=== PATIENT | female | born 1955 | race Caucasian/White ===

== ENCOUNTER 2019-11-02 09:32 | Outpatient (CLI) | payer MEDICARE, SELFPAY ==
[2019-11-02 11:11] LABS: Folic Acid 6.8 ng/mL (8.6->20); Vitamin B12 99 pg/mL (193-986)
[2019-11-05 22:19] LABS: Methylmalonic Acid 1170 nmol/L (87-318)
== END 2019-11-02 09:33 | disposition home or self-care (01) ==
LOC: CHSLAB 09:35
PROVIDERS: PCP Family Medicine; Visit Provider Family Medicine
DX: D75.89 Other specified diseases of blood and blood-forming organs (principal)
CPT/HCPCS: 36415; 82607; 82746; 83921

== ENCOUNTER 2020-01-26 13:03 | Inpatient (IN) | payer MEDICARE, MEDICAID, SELFPAY ==
--- NOTE | ~2020-01-26 | CT_ITS ---
EXAMINATION: CT abdomen pelvis w con DATE: 01/26/2020 15:17 INDICATION: Vomiting and abdominal pain. Epigastric pain. TECHNIQUE: Computed tomography (CT) of the abdomen and pelvis was performed with 100 cc Omnipaque 350 intravenous contrast. The dose-length product was 1396.18 mGy-cm. Automated exposure control and ite rative reconstruction technique were employed. COMPARISON: CT dated 09/14/2018 FINDINGS: Lung bases are unremarkable. No significant pleural or pericardial effusion. Heart size is enlarged. The liver, spleen, pancreas, adrenal glands and kidneys are unremarkable. There are gallstones. No hy dronephrosis. There is a umbilical hernia containing nonobstructed small bowel. No abnormal pelvic ma sses or fluid collections. Normal appendix. No focal bowel abnormalities. There is scoliosis. Moderat e lower thoracic spondylosis. IMPRESSION: 1. Cholelithiasis. 2: Umbilical hernia containing fat and nonobstructed small bowel. 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
--- NOTE | ~2020-01-26 | XR_ITS ---
XR chest 2V 01/26/2020 14:20 Indication: Dyspnea. Nausea. Procedure: PA and lateral views of the chest Comparison: Comparison to multiple prior studies sequentially, with oldest reviewed study dated 08/23. Findings: Cardiomegaly. No focal air space disease, pulmonary edema, pleural effusion or suspected pn eumothorax. Left basilar atelectasis. No acute osseous abnormality. Impression: 1: Left basilar atelectasis. 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 Impression: 1: Left basilar atelectasis.
--- NOTE | ~2020-01-26 | US_ITS ---
US right upper quadrant INDICATION: Epigastric pain and vomiting PROCEDURE: Realtime right upper abdominal ultrasound. COMPARISON: Ultrasound dated 10/11/2016 FINDINGS: The pancreas is normal without focal mass or pancreatic ductal dilation. Liver echotexture is normal without focal mass or intrahepatic biliary dilatation. There is normal directional flow i n the portal vein. The gallbladder is normal without stones, gallbladder wall thickening or pericholecystic fluid. Comm on bile duct measures 3.6 mm. No sonographic Mon's sign. IMPRESSION: 1: Normal limited abdominal ultrasound. 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
[2020-01-26 13:05] VITALS: BP 166/84; PULSE 70; RESP 28; TEMP 36.6; O2SAT 96
--- NOTE | 2020-01-26 13:28 | ECG_ITS ---
Measurements Intervals [place] Rate: 65 P: 71 ND: 164 QRS: 52 QRSD: 97 T: 60 QT: 433 QTc: 452 Interpretive Statements SINUS RHYTHM WITH SINUS ARRHYTHMIA ATRIAL AND VENTRICULAR PREMATURE COMPLEXES DELAYED PRECORDIAL R/S TRANSITION LOW QRS VOLTAGE IN PRECORDIAL LEADS BASELINE ARTIFACT- AVR, AVL, AVF, V5-V6 BORDERLINE ECG Electronically Signed On 01-26-2020 14:00:28 CDT by Gary Taveras D.O.
[2020-01-26 13:43] LABS: Add Urine Microscopic? YES; Appearance Urine Clear (Clear); Bilirubin Urine Negative (Negative); Blood Urine Negative (Negative); Color Urine Yellow (Yellow); Glucose Urine UA Trace (Negative); Ketones Urine Trace (Negative); Leukocyte Esterase Ur Negative LEU/UL (Negative); Nitrate Urine Negative (Negative); Protein Urine Negative (Negative); Urobilinogen Urine 0.2 mg/dL (0.2-1.0)
[2020-01-26] MEDS: SODIUM CHLORIDE 0.9% IV 1,000 ML 999 ML IV CONT (13:44)
[2020-01-26] MEDS: ONDANSETRON INJ 4 MG/2 ML VIAL IV PUSH ×3 (13:45→19:49)
[2020-01-26] MEDS: PANTOPRAZOLE SODIUM IV 40 MG VIAL IV PUSH ×2 (13:48→22:09)
--- NOTE | 2020-01-26 13:49 | ED.NAVMDI ---
HPI - Nausea/Vomiting/Diarrhea General Chief complaint: Nausea/Vomiting/Diarrhea Stated complaint: sick to stomach cough Time Seen by Provider: 01/26/20 13:05 Source: patient Mode of arrival: ambulatory Limitations: no limitations History of Present Illness HPI Narrative: 64-year-old woman comes in today complaining of severe nausea, a small amount emesis and shortness of breath which started this morning. She states she feels ill. She states she has a productive cough that has been going on for some time. Patient states that she has been feeling hot and cold and that her abdomen hurts but there is no specific area that hurts worse. She denies headache, diarrhea, melena, hematochezia, dysuria, frequent urination, hematuria, rash, sick contacts, travel, chest pain and rash. MD elicited complaint: nausea, vomiting and abdominal pain Onset (ago): hour(s) (4-6) Description of vomiting: watery Associated nausea: Yes Associated abdominal pain: Yes Location of pain: diffuse Radiation: does not radiate Pain consistency: constant Severity: moderate Quality: other ( like nausea ) Exacerbating factors: none Relieving factors: none Associated symptoms: cough, nausea/vomiting and shortness of breath Treatment prior to arrival: none Related Data Home Medications Medication Instructions Recorded Confirmed duloxetine 30 mg capsule,delayed 30 mg PO DAILY 07/27/19 01/26/20 release hydrochlorothiazide 25 mg tablet 25 mg PO DAILY 07/27/19 01/26/20 lisinopril 40 mg tablet 40 mg PO DAILY 07/27/19 01/26/20 mirtazapine 45 mg tablet 45 mg PO DAILY 07/27/19 01/26/20 montelukast 10 mg tablet 10 mg PO DAILY 07/27/19 01/26/20 omeprazole 40 mg capsule,delayed 40 mg PO DAILY 07/27/19 01/26/20 release ropinirole 1 mg tablet 1 mg PO BID 07/27/19 01/26/20 albuterol sulfate [ProAir HFA] 1 inh INHALATION QID PRN 01/26/20 01/26/20 apixaban [Eliquis] 5 mg PO BID 01/26/20 01/26/20 benztropine 1 mg PO BID 01/26/20 01/26/20 budesonide-formoterol [Symbicort] 2 puff INHALATION Q12H 01/26/20 01/26/20 calcium carbonate 600 mg PO BID 01/26/20 01/26/20 cariprazine [Vraylar] 1.5 mg PO DAILY 01/26/20 01/26/20 celecoxib [Celebrex] 200 mg PO DAILY 01/26/20 01/26/20 chlorhexidine gluconate 15 ml MUCOUS MEMBRANE BID 01/26/20 01/26/20 diltiazem HCl 240 mg PO DAILY 01/26/20 01/26/20 fluticasone propionate 1 inh INHALATION BID 01/26/20 01/26/20 glimepiride 2 mg PO DAILY 01/26/20 01/26/20 pravastatin 40 mg PO DAILY 01/26/20 01/26/20 triamcinolone acetonide 1 applic TOPICAL TID 01/26/20 01/26/20 Allergies Allergy/AdvReac Type Severity Reaction Status Date / Time codeine Allergy Unknown unknown Verified 07/27/19 11:18 Review of Systems Constitutional: Constitutional: Denies chills, Reports fatigue and Denies fever(s) Eyes: Eyes: Denies change in vision and Denies photophobia ENT: Denies dysphagia, Denies nasal congestion and Denies sore throat Cardiovascular: Cardiovascular: Denies chest pain and Denies radiating jaw, neck or arm pain Respiratory: Respiratory: Denies cough, Denies dyspnea and Denies wheezing Gastrointestinal: Gastrointestinal: Reports as per HPI, Reports abdominal pain, Denies diarrhea, Reports nausea and Reports vomiting Genitourinary: Genitourinary: Denies hematuria, Denies nocturia and Denies dysuria Musculoskeletal: Musculoskeletal: Denies arthralgias and Denies joint swelling Integumentary/Breasts: Skin/Breast: Denies pruritus, Denies erythema and Denies rash Neurologic: Denies vertigo, Denies dizziness, Denies syncope and Denies focal weakness Endocrine: Endocrine: Denies polydipsia and Denies polyuria Hematologic/Lymphatic: Hematologic/Lymphatic: Denies easy bleeding and Denies easy bruising Allergic/Immunologic: Allergic/Immunologic: Denies lip swelling and Denies wheezing PMFSH Past Medical History Medical History (Updated 01/26/20 @ 15:47 by Tc Feliciano MD) Arthritis Asthma COPD (chronic obstructive pulmonary disease) GE
[2020-01-26 13:50] LABS: Bacteria Urine 2+ /hpf; RBC Urine 0-2 /hpf (0-2); Squamous Epithelial Cell Urine Few /hpf (Few); WBC Urine 0-3 /hpf (0-3)
[2020-01-26 14:02] LABS: Influenza Control Valid (Valid)
[2020-01-26 14:13] LABS: Basophils Absolute Auto 0.05 K/mm3 (0.00-0.10); Basophils Percent Auto 0.4 % (0.0-1.0); Eosinophils Absolute Auto 0.04 K/mm3 (0.02-0.50); Eosinophils Percent Auto 0.3 % (1.0-6.0); Hematocrit 43.6 % (35.0-49.0); Hemoglobin 14.1 g/dL (12.0-15.0); Immature Granulocyte Absolute 0.07 K/mm3 (0.00-0.00); Immature Granulocyte Percent A 0.5 % (0.0-0.0); Lymphocytes Absolute Auto 0.78 K/mm3 (1.10-4.50); Lymphocytes Percent Auto 5.7 % (18.0-42.0); Mean Corpuscular HGB Conc 32.3 g/dL (32.0-36.0); Mean Corpuscular Hemoglobin 31.8 pg (27.0-31.0); Mean Corpuscular Volume 98.2 fL (78.0-102.0); Monocytes Absolute Auto 0.36 K/mm3 (0.10-0.90); Monocytes Percent Auto 2.6 % (2.0-11.0); Neutrophils Absolute Auto 12.5 K/mm3 (1.7-7.2); Neutrophils Percent Auto 90.5 % (50.0-70.0); Platelet Count Result 224 K/mm3 (150-420); Red Blood Count 4.44 M/mm3 (4.20-5.40); Red Cell Distribution Width 14.4 % (11.6-14.4); White Blood Count 13.8 K/mm3 (4.8-10.8)
[2020-01-26 14:30] VITALS: BP 165/79; PULSE 63; O2SAT 93
[2020-01-26 14:31] LABS: Alanine Aminotransferase 18 U/L (14-59); Albumin Level 3.6 g/dL (3.4-5.0); Alkaline Phosphatase 93 U/L (46-116); Anion Gap 12.9 mmol/L (7-16); Aspartate Amino Transferase 15 U/L (15-37); Bilirubin,Total 0.5 mg/dL (0.00-1.00); Blood Urea Nitrogen 14 mg/dL (7-18); Calcium 9.2 mg/dL (8.5-10.1); Carbon Dioxide 29 mmol/L (21-32); Chloride 104 mmol/L (98-108); Estimated Glomerular Filt Rate 59; Glucose 220 mg/dL (70-99); Lipase 68 U/L (73-393); Osmolality Calculated 301 mOsm/kg (285-295); Potassium 3.9 mmol/L (3.5-5.1); Sodium 142 mmol/L (136-145); Total Protein 7.2 g/dL (6.4-8.2)
[2020-01-26 14:33] LABS: Troponin I < 0.02 ng/mL (0.00-0.056)
[2020-01-26] MEDS: METOCLOPRAMIDE HCL INJ 10 MG/2 ML VIAL IV PUSH (15:04)
[2020-01-26 16:00] VITALS: BP 153/89; PULSE 62; RESP 20; TEMP 36.4; O2SAT 98
[2020-01-26 16:08] VITALS: PULSE 74; RESP 22; O2SAT 98
--- NOTE | 2020-01-26 16:15 | PC.NURSE ---
FRIEND GALE [phone] - CALL FOR RIDE IN THE AM
[2020-01-26 17:11] VITALS: BMI 43.6
[2020-01-26 17:22] LABS: Glucose Point of Care 191 (65-105)
[2020-01-26] MEDS: LACTATED RINGERS 1,000 ML 150 ML IV CONT (17:52)
[2020-01-26] MEDS: APIXABAN 2.5 MG TABLET 5 MG PO (18:01)
[2020-01-26] MEDS: CELECOXIB 100 MG CAPSULE 200 MG PO (18:01)
[2020-01-26] MEDS: CALCIUM CARBONATE (OSCAL) 500 MG TABLET PO (18:11)
[2020-01-26] MEDS: BUDESONIDE/FORMOTEROL (*SP) 160-4.5 MCG 6 GM INH 2 PUFF INHALATION (18:12)
[2020-01-26] MEDS: BENZTROPINE MESYLATE 0.5 MG TABLET 1 MG PO (18:35)
[2020-01-26] MEDS: TRIAMCINOLONE ACET 0.1% CREAM 15 GM TUBE 1 APPLIC TOPICAL (18:36)
--- NOTE | 2020-01-26 19:30 | PC.NURSE ---
Patient complaining of feeling nauseous and asked for nausea medicine. While nurse was @ sink washing her hands to leave room, nurse saw patient sticking 2 fingers down her throat. Asked patient why she was doing it and she said she needed to vomit. Nurse told patient to not be sticking fingers down her throat to help her vomit. Patient denies any other complaints. Call light in reach.
--- NOTE | 2020-01-26 19:55 | PC.NURSE ---
Meds unavailabe to be discussed by charge nurse with
--- NOTE | 2020-01-26 20:25 | PC.NURSE ---
Patient called to nurses station and said her brother will be calling to talk to her and patient asked that nurse just talk to him instead and gave permission for nurse to give brother information. Brother called couple minutes later. Updated brother on patient's condition.
[2020-01-26 21:06] LABS: Troponin I < 0.02 ng/mL (0.00-0.056)
[2020-01-26 23:07] LABS: Glucose Point of Care 194 (65-105)
[2020-01-27] VITALS: BP 167/82; PULSE 84; RESP 20; TEMP 36.7; O2SAT 94
[2020-01-27 00:46] LABS: Troponin I < 0.02 ng/mL (0.00-0.056)
[2020-01-27] MEDS: LACTATED RINGERS 1,000 ML 150 ML IV CONT ×4 (01:09→23:48)
[2020-01-27] MEDS: ONDANSETRON INJ 4 MG/2 ML VIAL IV PUSH ×3 (02:54→15:55)
[2020-01-27] MEDS: BUDESONIDE/FORMOTEROL (*SP) 160-4.5 MCG 6 GM INH 2 PUFF INHALATION ×2 (03:14→15:56)
[2020-01-27 05:37] LABS: Basophils Absolute Auto 0.06 K/mm3 (0.00-0.10); Basophils Percent Auto 0.4 % (0.0-1.0); Hematocrit 40.1 % (35.0-49.0); Hemoglobin 13.5 g/dL (12.0-15.0); Immature Granulocyte Absolute 0.25 K/mm3 (0.00-0.00); Immature Granulocyte Percent A 1.5 % (0.0-0.0); Lymphocytes Absolute Auto 1.04 K/mm3 (1.10-4.50); Lymphocytes Percent Auto 6.2 % (18.0-42.0); Mean Corpuscular HGB Conc 33.7 g/dL (32.0-36.0); Mean Corpuscular Hemoglobin 31.8 pg (27.0-31.0); Mean Corpuscular Volume 94.4 fL (78.0-102.0); Mean Platelet Volume 10.7 fl (9.2-11.8); Monocytes Percent Auto 4.2 % (2.0-11.0); Neutrophils Absolute Auto 14.8 K/mm3 (1.7-7.2); Neutrophils Percent Auto 87.7 % (50.0-70.0); Platelet Count Result 276 K/mm3 (150-420); Red Blood Count 4.25 M/mm3 (4.20-5.40); Red Cell Distribution Width 14.5 % (11.6-14.4); White Blood Count 16.8 K/mm3 (4.8-10.8)
[2020-01-27 06:07] LABS: Alanine Aminotransferase 19 U/L (14-59); Albumin Level 3.3 g/dL (3.4-5.0); Alkaline Phosphatase 83 U/L (46-116); Anion Gap 13.3 mmol/L (7-16); Aspartate Amino Transferase 15 U/L (15-37); Bilirubin,Total 0.6 mg/dL (0.00-1.00); Blood Urea Nitrogen 10 mg/dL (7-18); Calcium 8.4 mg/dL (8.5-10.1); Carbon Dioxide 29 mmol/L (21-32); Chloride 102 mmol/L (98-108); Estimated CRCL calculation 71 ml/min; Estimated Glomerular Filt Rate 60; Glucose 205 mg/dL (70-99); Osmolality Calculated 297 mOsm/kg (285-295); Potassium 3.3 mmol/L (3.5-5.1); Sodium 141 mmol/L (136-145); Total Protein 6.8 g/dL (6.4-8.2)
[2020-01-27 06:08] LABS: Troponin I < 0.02 ng/mL (0.00-0.056)
[2020-01-27 07:50] LABS: Glucose Point of Care 179 (65-105)
[2020-01-27 08:34] VITALS: BP 152/74; PULSE 108; RESP 20; TEMP 36.4; O2SAT 94
--- NOTE | 2020-01-27 10:08 | PC.NURSE ---
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 rocking back and forth on bed.
[2020-01-27] MEDS: PANTOPRAZOLE SODIUM IV 40 MG VIAL IV PUSH ×2 (11:06→20:22)
[2020-01-27] MEDS: HYDROMORPHONE HCL 2 MG/ML VIAL 0.5 MG IV PUSH ×2 (11:17→17:56)
[2020-01-27] MEDS: KCL 20 MEQ/SW 100 ML 100 ML 50 MEQ IVPB (11:24)
[2020-01-27 11:38] LABS: Glucose Point of Care 173 (65-105)
--- NOTE | 2020-01-27 12:58 | PM.IMHP ---
H&P: HPI History of Present Illness Chief complaint: sick to stomach cough Narrative: Yulia Gaston is a 64 year old female presented to the ED with complaints of nausea /vomiting and abdominal pain. She has a past medical history of arthritis, asthma, COPD, GERD, hypertension, insomnia, sleep apnea, type 2 diabetes, visual loss, weight gain. Patient noted for the last 2 days she has had nausea vomiting with abdominal pain. patient does have a history of having nausea vomiting with abdominal pain. records were obtained from patient's primary care physician Dr. Antunez and also the emergency department at [facility] in [place] that dates back to 2018. the cause of her abdominal pain was unable to be determined. According to patient she has been suffering from nausea vomiting and abdominal pain for the last 2 days. She is complaining of pain in her epigastric area and her lower abdominal area. She also has a productive cough which is chronic to her due to her COPD with sputum that is white and grayish in color. She noted that the pain is constant and nothing seems to aggravate it more. While patient was in the ED she was given Zofran Reglan and IV fluid. CT of the abdomen indicates Cholelithiasis.. vital signs are 152/74, 108, 20, 97.6 and 94% on 2 L nasal cannula. Patient white count was elevated to 16.8 she did have bacteria in her UA. ultrasound of the right upper quadrant is currently pending. her potassium was also low,she was given a K rider. she is being admitted for cholelithiasis, hypokalemia and nausea vomiting. Patient denies CP, palpitation, extremity numbness, lightheadness, dizziness, constipation, diarrhea, chills or fever. Review of Systems Constitutional: Constitutional: Reports fatigue and Reports poor appetite Cardiovascular: Cardiovascular: Denies irregular heart rhythm and Reports dyspnea (Chronic due to COPD) Respiratory: Respiratory: Reports cough ( productive greenish in color) Gastrointestinal: Gastrointestinal: Denies melena, Denies hematochezia, Denies change in stool character, Denies coffee ground emesis, Reports nausea and Reports vomiting Genitourinary: Genitourinary: Denies dysuria, Denies urinary incontinence, Denies urinary hesitancy and Denies urinary urgency Musculoskeletal: Musculoskeletal: Denies back pain and Denies neck pain Integumentary/Breasts: Skin/Breast: Denies system reviewed and no additional complaints, except as docu Neurologic: Denies confusion, Denies vertigo, Denies dizziness, Denies syncope, Denies frequent falls and Denies seizure-like activity Psychiatric: Psychiatric: Reports anxiety and Reports change in appetite Endocrine: Endocrine: Denies excessive sweating Hematologic/Lymphatic: Hematologic/Lymphatic: Denies no additional hematologic/lymphatic complaints Allergic/Immunologic: Allergic/Immunologic: Denies no additional allergic/immunologic complaints [facility] Past Medical History Medical History (Updated 01/27/20 @ 15:32 by KIMBERLI GrantP-C) Afib Arthritis Asthma COPD (chronic obstructive pulmonary disease) GERD (gastroesophageal reflux disease) HTN (hypertension) Insomnia Sleep apnea T2DM (type 2 diabetes mellitus) Vision loss Weight gain Surgical History Surgical History (Updated 01/26/20 @ 13:59 by Tc Feliciano MD) History of bilateral tubal ligation Social History Social History (Updated 07/27/19 @ 11:30 by Elisabeth Lucio) Smoking status: Former smoker Smoking end date: 09/22/10 Alcohol intake: former Substance use: former Substance use type: does not use Gender identity (if verbalized by the patient): Female Spiritual care concerns: No Agree to blood products: Yes Meds Home Medications and Allergies Home Medications Medication Instructions Recorded Confirmed Type duloxetine 30 mg capsule,delayed 30 mg PO DAILY 07/27/19 01/26/20 History release hydrochlorothiazide 25 mg tablet 2
[2020-01-27] MEDS: APIXABAN 2.5 MG TABLET 5 MG PO (15:55)
[2020-01-27] MEDS: CHLORHEXIDINE GLUCONATE 0.12% ORAL RINSE 473 ML BTL (*BKC) 15 ML SWISH/SPIT (15:57)
[2020-01-27 16:00] VITALS: BP 148/88; PULSE 96; RESP 18; TEMP 36.6; O2SAT 94
--- NOTE | 2020-01-27 16:52 | PC.NURSE ---
1530 awke and sitting on side of bed. rama any n/v. pain is almost gone. claims nap for last 2 hr has helped. requesting ice chips.
--- NOTE | 2020-01-27 16:53 | PC.NURSE ---
1650 no c/o n/v. surveillance dual rate officer aware of. pt had ice chips and oral meds. she is changing orders now.
[2020-01-27 17:04] LABS: Glucose Point of Care 138 (65-105)
[2020-01-27] MEDS: methylPREDNISolone SOD SUCC 125 MG VIAL 60 MG IV PUSH (18:50)
[2020-01-27 19:15] VITALS: BP 116/59; PULSE 64; RESP 18; TEMP 36.3; O2SAT 96
[2020-01-27] MEDS: BENZTROPINE MESYLATE 1 MG TABLET PO (20:22)
[2020-01-27] MEDS: PROCHLORPERAZINE EDISYLATE 10 MG/2 ML VIAL IV PUSH (21:14)
[2020-01-27 22:27] LABS: Glucose Point of Care 207 (65-105)
--- NOTE | 2020-01-27 22:28 | PC.NURSE ---
Patient sleeping quietly in bed, no signs of distress noted. Breathing unlabored. IV fluids cont. per order. Call light at side.
[2020-01-28] VITALS: BP 138/48; PULSE 88; RESP 16; TEMP 36.3; O2SAT 95
--- NOTE | 2020-01-28 03:22 | PC.NURSE ---
Sleeping except to void in BR hat, resp even. IV continues. Needed objects in reach.
[2020-01-28] MEDS: BUDESONIDE/FORMOTEROL (*SP) 160-4.5 MCG 6 GM INH 2 PUFF INHALATION (04:24)
[2020-01-28 05:37] LABS: Hematocrit 39.4 % (35.0-49.0); Hemoglobin 12.9 g/dL (12.0-15.0); Mean Corpuscular HGB Conc 32.7 g/dL (32.0-36.0); Mean Corpuscular Hemoglobin 31.2 pg (27.0-31.0); Mean Corpuscular Volume 95.4 fL (78.0-102.0); Mean Platelet Volume 10.8 fl (9.2-11.8); Platelet Count Result 264 K/mm3 (150-420); Red Blood Count 4.13 M/mm3 (4.20-5.40); Red Cell Distribution Width 14.3 % (11.6-14.4); White Blood Count 12.2 K/mm3 (4.8-10.8)
[2020-01-28 05:57] LABS: Lactic Acid 1.3 mmol/L (0.4-2.0)
[2020-01-28 06:00] VITALS: PULSE 90; RESP 16
[2020-01-28] MEDS: ALBUTEROL SULFATE NEB 2.5 MG/3 ML INH INHALATION (06:02)
[2020-01-28 06:08] LABS: Alanine Aminotransferase 24 U/L (14-59); Albumin Level 3.2 g/dL (3.4-5.0); Alkaline Phosphatase 73 U/L (46-116); Aspartate Amino Transferase 17 U/L (15-37); Bilirubin,Total 0.3 mg/dL (0.00-1.00); Blood Urea Nitrogen 15 mg/dL (7-18); Calcium 8.8 mg/dL (8.5-10.1); Carbon Dioxide 28 mmol/L (21-32); Chloride 107 mmol/L (98-108); Estimated CRCL calculation 70 ml/min; Estimated Glomerular Filt Rate 59; Glucose 195 mg/dL (70-99); Osmolality Calculated 301 mOsm/kg (285-295); Sodium 143 mmol/L (136-145)
[2020-01-28 06:12] VITALS: PULSE 68; RESP 18
[2020-01-28] MEDS: LACTATED RINGERS 1,000 ML 150 ML IV CONT (06:32)
[2020-01-28 06:42] LABS: CRP < 0.2 mg/dL (0.0-0.9)
--- NOTE | 2020-01-28 07:32 | PC.NURSE ---
Blood Glucose 164, no insulin given per protocol.
[2020-01-28 07:34] LABS: Glucose Point of Care 164 (65-105)
[2020-01-28 08:00] VITALS: BP 140/88; PULSE 90; RESP 20; TEMP 37.1; O2SAT 94
[2020-01-28] MEDS: PRAVASTATIN SODIUM 20 MG TABLET 40 MG PO (09:40)
[2020-01-28] MEDS: MIRTAZAPINE 15 MG TABLET 45 MG PO (09:40)
[2020-01-28] MEDS: MONTELUKAST SODIUM 10 MG TABLET PO (09:40)
[2020-01-28] MEDS: methylPREDNISolone SOD SUCC 125 MG VIAL 60 MG IV PUSH (09:40)
[2020-01-28] MEDS: APIXABAN 2.5 MG TABLET 5 MG PO (09:41)
[2020-01-28] MEDS: lisinopriL 20 MG TABLET 40 MG PO (09:41)
[2020-01-28] MEDS: hydroCHLOROthiazide 25 MG TABLET PO (09:42)
[2020-01-28] MEDS: CHLORHEXIDINE GLUCONATE 0.12% ORAL RINSE 473 ML BTL (*BKC) 15 ML SWISH/SPIT (09:42)
[2020-01-28] MEDS: DULOXETINE HCL 30 MG CAPSULE.DR PO (09:42)
[2020-01-28] MEDS: CALCIUM CARBONATE (OSCAL) 500 MG TABLET PO (09:42)
[2020-01-28] MEDS: PANTOPRAZOLE SODIUM IV 40 MG VIAL IV PUSH (09:46)
[2020-01-28] MEDS: CELECOXIB 100 MG CAPSULE 200 MG PO (09:47)
[2020-01-28] MEDS: BENZTROPINE MESYLATE 1 MG TABLET PO (09:50)
[2020-01-28] MEDS: TRIAMCINOLONE ACET 0.1% CREAM 15 GM TUBE 1 APPLIC TOPICAL ×2 (09:51→13:31)
[2020-01-28 11:41] LABS: Glucose Point of Care 213 (65-105)
[2020-01-28] MEDS: ONDANSETRON INJ 4 MG/2 ML VIAL IV PUSH (12:14)
--- NOTE | 2020-01-28 12:48 | PM.DS ---
DS: Diagnosis Admitting Diagnosis Admitting Diagnosis: Epigastric pain Discharge Diagnosis (1) Abdominal pain: Qualifiers: Abdominal location: epigastric Qualified Code(s): R10.13 - Epigastric pain Code(s): R10.9 - Unspecified abdominal pain Status: Acute Assessment and Plan: CT indicates Cholelithiasis. ultrasound unremarkable patient able to tolerate meals on discharge WBC trending down on discharge 12.2 patient with discharge with Compazine (2) Vomiting: Qualifiers: Nausea presence: with nausea Vomiting Intractability: unspecified Vomiting type: unspecified Qualified Code(s): R11.2 - Nausea with vomiting, unspecified Code(s): R11.10 - Vomiting, unspecified Status: Acute Assessment and Plan: patient able to tolerate meals continue anti emesis medication ultrasound of the right upper quadrant unremarkable HIDA scan scheduled for 1 week patient instructed to eat low or no fat diet (3) T2DM (type 2 diabetes mellitus): Code(s): E11.9 - Type 2 diabetes mellitus without complications Status: Acute Assessment and Plan: blood sugars less than 300 continue home medication follow-up with PCP (4) GERD (gastroesophageal reflux disease): Code(s): K21.9 - Gastro-esophageal reflux disease without esophagitis Status: Acute Assessment and Plan: continue omeprazole (5) COPD (chronic obstructive pulmonary disease): Code(s): J44.9 - Chronic obstructive pulmonary disease, unspecified Status: Acute Assessment and Plan: wheezing has improved with the use of steroids continue supplementary oxygen continue inhalers discharge home with Solu-Medrol pack (6) DVT prophylaxis: Code(s): Z29.9 - Encounter for prophylactic measures, unspecified Status: Acute Assessment and Plan: continue Eliquis (7) Afib: Code(s): I48.91 - Unspecified atrial fibrillation Status: Acute Assessment and Plan: controlled is followed by Dr. Rodriguez dye worker patient is on Eliquis continue Cardizem EKG indicates SINUS RHYTHM WITH SINUS ARRHYTHMIA ATRIAL AND VENTRICULAR PREMATURE COMPLEXES DELAYED PRECORDIAL R/S TRANSITION LOW QRS VOLTAGE IN PRECORDIAL LEADS patient does not complain of any chest pain palpitation DS: Summary Hospital Course Hospital Course: H&P from 01/26 Narrative: Yulia Gaston is a 64 year old female presented to the ED with complaints of nausea /vomiting and abdominal pain. She has a past medical history of arthritis, asthma, COPD, GERD, hypertension, insomnia, sleep apnea, type 2 diabetes, visual loss, weight gain. Patient noted for the last 2 days she has had nausea vomiting with abdominal pain. patient does have a history of having nausea vomiting with abdominal pain. records were obtained from patient's primary care physician Dr. Antunez and also the emergency department at [facility] in [place] that dates back to 2018. the cause of her abdominal pain was unable to be determined. According to patient she has been suffering from nausea vomiting and abdominal pain for the last 2 days. She is complaining of pain in her epigastric area and her lower abdominal area. She also has a productive cough which is chronic to her due to her COPD with sputum that is white and grayish in color. She noted that the pain is constant and nothing seems to aggravate it more. While patient was in the ED she was given Zofran Reglan and IV fluid. CT of the abdomen indicates Cholelithiasis.. vital signs are 152/74, 108, 20, 97.6 and 94% on 2 L nasal cannula. Patient white count was elevated to 16.8 she did have bacteria in her UA. ultrasound of the right upper quadrant is currently pending. her potassium was also low,she was given a K rider. she is being admitted for cholelithiasis, hypokalemia and nausea vomiting.
--- NOTE | 2020-01-28 12:48 | P.DS_ITS ---
DS: Diagnosis Admitting Diagnosis Admitting Diagnosis: Epigastric pain Discharge Diagnosis (1) Abdominal pain: Qualifiers: Abdominal location: epigastric Qualified Code(s): R10.13 - Epigastric pain Code(s): R10.9 - Unspecified abdominal pain Status: Acute Assessment and Plan: * CT indicates Cholelithiasis. * ultrasound unremarkable * patient able to tolerate meals on discharge * WBC trending down on discharge 12.2 * patient with discharge with Compazine * (2) Vomiting: Qualifiers: Nausea presence: with nausea Vomiting Intractability: unspecified Vomiting type: unspecified Qualified Code(s): R11.2 - Nausea with vomiting, unspecified Code(s): R11.10 - Vomiting, unspecified Status: Acute Assessment and Plan: * patient able to tolerate meals * continue anti emesis medication * ultrasound of the right upper quadrant unremarkable * HIDA scan scheduled for 1 week * patient instructed to eat low or no fat diet (3) T2DM (type 2 diabetes mellitus): Code(s): E11.9 - Type 2 diabetes mellitus without complications Status: Acute Assessment and Plan: * blood sugars less than 300 * continue home medication * follow-up with PCP (4) GERD (gastroesophageal reflux disease): Code(s): K21.9 - Gastro-esophageal reflux disease without esophagitis Status: Acute Assessment and Plan: * continue omeprazole (5) COPD (chronic obstructive pulmonary disease): Code(s): J44.9 - Chronic obstructive pulmonary disease, unspecified Status: Acute Assessment and Plan: * wheezing has improved with the use of steroids * continue supplementary oxygen * continue inhalers * discharge home with Solu-Medrol pack (6) DVT prophylaxis: Code(s): Z29.9 - Encounter for prophylactic measures, unspecified Status: Acute Assessment and Plan: * continue Eliquis (7) Afib: Code(s): I48.91 - Unspecified atrial fibrillation Status: Acute Assessment and Plan: * controlled * is followed by Dr. 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 She has a past medical history of arthritis, asthma, COPD, GERD, hypertension, insomnia, sleep apnea, type 2 diabetes, visual loss, weight gain. Patient noted for the last 2 days she has had nausea vomiting with abdominal pain. patient does have a history of having nausea vomiting with abdominal pain. records were obtained from patient's primary care physician Dr. Antunez and also the emergency department at [facility] in [place] that dates back to 2018. the cause of her abdominal pain was unable to be determined. According to patient she has been suffering from nausea vomiting and abdominal pain for the last 2 days. She is complaining of pain in her epigastric area and her lower abdominal area. She also has a productive cough which is chronic to her due to her COPD with sputum that is white and grayish in color. She noted that the pain is constant and nothing seems to aggravate it more. While patient was in the ED she was given Zofran Reglan and
--- NOTE | 2020-01-28 15:16 | PC.NURSE ---
DISHCARGE INSTRUCTIONS GIVEN VERBALLY AND WRITTEN INCLUDING MEDS, TESTING AND FOLLOW UPS. PT VOICES HER UNDERSTANDING. HAS NO QUESTIONS OR CONCERNS.
== END 2020-01-28 15:53 | disposition home or self-care (01) | DRG 446 ==
LOC: CHSED 15:47 → CHS2ND 15:56
PROVIDERS: Nurse Practitioner; Admitting Provider Emergency Medicine; Emergency Provider Emergency Medicine; PCP Family Medicine; Visit Provider Emergency Medicine
DX: K80.20 Calculus of gallbladder without cholecystitis without obstruction (principal); R10.9 Unspecified abdominal pain; R11.2 Nausea with vomiting, unspecified; E87.6 Hypokalemia; E11.9 Type 2 diabetes mellitus without complications; K21.9 Gastro-esophageal reflux disease without esophagitis; J44.9 Chronic obstructive pulmonary disease, unspecified; I48.91 Unspecified atrial fibrillation; I10 Essential (primary) hypertension; G47.00 Insomnia, unspecified; G47.30 Sleep apnea, unspecified; R63.5 Abnormal weight gain; H54.7 Unspecified visual loss
CPT/HCPCS: 36415; 71046; 74177; 76705; 80053; 81001; 83605; 83690; 84484; 85025; 85027; 86140; 87040; 87804; 93005; 94640; 96361; 96374; 96375; 96376; 99285; A4248; A9270; C9113; G0378; J0780; J1170; J1815; J2405; J2765; J2930; J3480; J7030; J7120; Q9965

== ENCOUNTER 2020-02-04 07:49 | Outpatient (CLI) | payer MEDICARE, MEDICAID, SELFPAY ==
--- NOTE | ~2020-02-04 | NM_ITS ---
EXAMINATION: NM hepatobiliary w pharm DATE: 02/04/2020 12:00 INDICATION: Abdominal pain. Nausea. COMPARISON: CT abdomen and pelvis 01/26/2020, ultrasound 01/27/2020 TECHNIQUE: 5.2 mCi Tc-99m mebrofenin (Choletec) was administered intravenously. Scintigraphic images of the abdomen were obtained for one hour. Then, 2.45 mcg sincalide (Kinevac) IV was administered, a nd imaging was continued for 30 minutes. FINDINGS: There is normal clearance of radiotracer from the blood pool. There is homogeneous tracer u ptake by the liver. Activity progresses to the bowel and gallbladder. Gallbladder ejection fraction (GBEF) was 31%. Note that most patients with gallbladder dysfunction have GBEF < 35%, which overlaps with the broad normal range of 10-90%. IMPRESSION: 1. Gallbladder ejection fraction in the lower range of normal. Note that this value overlaps with th e range of values that may be seen with gallbladder dysfunction and/or chronic cholecystitis if there is appropriate clinical correlation. 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 IMPRESSION: 1. Gallbladder ejection fraction in the lower range of normal. Note that this value overlaps with the range of values that may be seen with gallbladder dysfu nction and/or chronic cholecystitis if there is appropriate clinical correlatio nJean Carlos
== END 2020-02-04 07:50 | disposition home or self-care (01) ==
LOC: CHSIMG 07:52
PROVIDERS: PCP Family Medicine; Visit Provider Nurse Practitioner
DX: R10.9 Unspecified abdominal pain (principal)
CPT/HCPCS: 78227; A9537; J2805

== ENCOUNTER 2020-02-22 12:15 | Outpatient (CLI) | payer MEDICARE, SELFPAY ==
[2020-02-22 12:37] LABS: Creatinine Urine 161.01 mg/dL (40-278); MALB Creatinine Ratio 5.1 mg/g (0-30); Microalbumin Urine Random 8.3 mg/L
[2020-02-22 12:57] LABS: Hemoglobin A1C 6.9 % (<5.7)
[2020-02-22 13:29] LABS: Alanine Aminotransferase 19 U/L (14-59); Albumin Level 3.5 g/dL (3.4-5.0); Alkaline Phosphatase 89 U/L (46-116); Anion Gap 12.6 mmol/L (7-16); Aspartate Amino Transferase 14 U/L (15-37); Bilirubin,Total 0.4 mg/dL (0.00-1.00); Blood Urea Nitrogen 10 mg/dL (7-18); Calcium 9.1 mg/dL (8.5-10.1); Carbon Dioxide 32 mmol/L (21-32); Chloride 102 mmol/L (98-108); Estimated Glomerular Filt Rate 58; Glucose 144 mg/dL (70-99); Magnesium 2.2 mg/dL (1.8-2.4); Osmolality Calculated 298 mOsm/kg (285-295); Potassium 3.6 mmol/L (3.5-5.1); Sodium 143 mmol/L (136-145); Thyroid Stimulating Hormone 2.15 uIU/mL (0.36-3.74); Total Protein 6.5 g/dL (6.4-8.2)
== END 2020-02-22 12:16 | disposition home or self-care (01) ==
LOC: CHSLAB 12:17
PROVIDERS: PCP Family Medicine; Visit Provider Family Medicine
DX: E11.9 Type 2 diabetes mellitus without complications (principal); I10 Essential (primary) hypertension
CPT/HCPCS: 36415; 80053; 82043; 83036; 83735; 84443

== ENCOUNTER 2020-03-10 15:04 | Observation (INO) | payer MEDICARE, MEDICAID, SELFPAY ==
[2020-03-10] VITALS (13 sets, daily range): BP systolic 119–164; BP diastolic 61–90; PULSE 62–153; RESP 16–20; TEMP 36.1–36.7; O2SAT 90–96; BMI 42.4
--- NOTE | ~2020-03-10 | XR_ITS ---
EXAMINATION: XR chest 2V DATE: 03/10/2020 16:38 INDICATION: Shortness of breath and cough TECHNIQUE: PA and lateral views of the chest are obtained. COMPARISON: 01/26/2020 FINDINGS: There are persistent left basilar airspace opacities. There is no pleural effusion or pneum othorax. Cardiomegaly is noted. There is moderate thoracic spondylosis. IMPRESSION: 1. Persistent left basilar airspace opacities, likely atelectasis. 2. Cardiomegaly. 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
--- NOTE | ~2020-03-10 | CT_ITS ---
EXAMINATION: CT abdomen pelvis w con DATE: 03/10/2020 17:25 INDICATION: Right upper Quad and abdominal pain. Leukocytosis. TECHNIQUE: Computed tomography (CT) of the abdomen and pelvis was performed . with 100 mL Omnipaque-3 50 intravenous contrast. Automated exposure control and iterative reconstruction technique were emplo yed. The dose-length product was 1411.54 mGy-cm. COMPARISON: FINDINGS: Mild atelectasis at the anterior lingula and right middle lobe. Mild cardiomegaly with likely left ve ntricular hypertrophy. No pericardial or pleural effusion. Diffuse hepatic steatosis with more focal fat at the ligamentum teres. Tiny gallstone at the neck of the normal-appearing gallbladder with no w all thickening or pericholecystic and contour change to suggest acute cholecystitis. Spleen, pancreas , bilateral adrenal glands and right kidney are normal. 1 cm left renal cyst. Small umbilical hernia containing fat and the anterior margin of the short segment of nonobstructed small bowel. Bowels incl uding the appendix are normal. Bladder, anteverted uterus and bilateral ovaries are normal. Likely bi lateral tubal ligation rings along the bilateral broad ligaments. No free intraperitoneal gas or flui d. No pathologically enlarged abdominal or pelvic lymphadenopathy. Mild lumbar levoscoliosis with com pensatory dextrocurvature of the thoracic spine. Severe lower thoracic and mild lumbar spondylosis. IMPRESSION: 1. Cholelithiasis without findings to suggest acute cholecystitis. 2. Small umbilical hernia containing fat and nonobstructed small bowel. 3. Cardiomegaly with left ventricular hypertrophy. 4. Diffuse hepatic steatosis. 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
--- NOTE | 2020-03-10 15:26 | ECG_ITS ---
Measurements Intervals [place] Rate: 68 P: 72 [place]: 158 QRS: 34 QRSD: 98 T: 54 QT: 433 QTc: 463 Interpretive Statements SINUS RHYTHM BORDERLINE ST ABNORMALITY- ANTEROLATERAL LEADS BASELINE WANDER- I, II, III BORDERLINE ECG Electronically Signed On 03-10-2020 17:24:37 CDT by Gary Taveras D.O.
--- NOTE | 2020-03-10 15:41 | ED.SOB ---
HPI - SOB/Dyspnea General Chief Complaint: Shortness of Breath/Dyspnea Stated Complaint: gallbladder pain, trouble breathing Time Seen by Provider: 03/10/20 15:20 Source: patient Mode of arrival: ambulatory Limitations: no limitations History of Present Illness HPI Narrative: 64-year-old woman with a history of COPD and abdominal pain comes in today complaining of shortness of breath which has gotten gradually worse over the last few weeks and is associated with a cough productive of white and negrete sputum. She states she has felt hot and cold but has had no night sweats, fever, chest pain or sick contacts. She is no longer a smoker. She states that she has some right upper quadrant and right flank pain that started in the last day or so and she has not eaten anything yesterday or today. She had small amount of emesis after taking some antacids earlier today. She denies diarrhea, black stools, blood in her stool, dysuria, hematuria, frequency or urgency. Per medical record and the patient, she has been having abdominal pain intermittently and about once a year for the last 12 years. MD elicited complaint: shortness of breath and cough Pertinent past history: COPD Onset (ago): week(s) (2-3) Timing: constant Severity: moderate Exacerbating factors: exertion Relieving factors: rest Known history of: COPD and other (Atrial fibrillation) Associated symptoms: wheezing and sputum production Treatment prior to arrival: bronchodilator (last night) Related Data Home oxygen amount: none Home Medications Medication Instructions Recorded Confirmed duloxetine 30 mg capsule,delayed 30 mg PO DAILY 07/27/19 03/10/20 release hydrochlorothiazide 25 mg tablet 25 mg PO DAILY 07/27/19 03/10/20 lisinopril 40 mg tablet 40 mg PO DAILY 07/27/19 03/10/20 montelukast 10 mg tablet 10 mg PO DAILY 07/27/19 03/10/20 Eliquis 5 mg PO BID 01/26/20 03/10/20 Vraylar 1.5 mg PO DAILY 01/26/20 03/10/20 albuterol sulfate [ProAir HFA] 1 inh INHALATION QID PRN 01/26/20 03/10/20 benztropine 1 mg PO BID 01/26/20 03/10/20 budesonide-formoterol [Symbicort] 2 puff INHALATION Q12H 01/26/20 03/10/20 celecoxib [Celebrex] 200 mg PO DAILY 01/26/20 03/10/20 diltiazem HCl 240 mg PO DAILY 01/26/20 03/10/20 fluticasone propionate 1 inh INHALATION BID 01/26/20 03/10/20 glimepiride 2 mg PO DAILY 01/26/20 03/10/20 folic acid 1 mg PO DAILY 03/10/20 03/10/20 vitamin B complex [B 1 tablet PO BID 03/10/20 03/10/20 Complex-Vitamin B12] Allergies Allergy/AdvReac Type Severity Reaction Status Date / Time codeine AdvReac Unknown sick to Verified 02/18/20 09:26 stomach Review of Systems Constitutional: Constitutional: Denies chills, Reports fatigue, Denies fever(s) and Denies weakness Eyes: Eyes: Denies change in vision and Denies photophobia ENT: Denies dysphagia, Denies nasal congestion and Denies sore throat Cardiovascular: Cardiovascular: Denies chest pain and Denies radiating jaw, neck or arm pain Respiratory: Respiratory: Denies cough and Denies dyspnea Gastrointestinal: Gastrointestinal: Reports abdominal pain, Denies constipation, Denies diarrhea, Reports nausea and Reports vomiting Genitourinary: Genitourinary: Denies hematuria, Denies nocturia, Denies dysuria and Reports flank pain Musculoskeletal: Musculoskeletal: Denies back pain, Denies arthralgias and Denies joint swelling Integumentary/Breasts: Skin/Breast: Denies pruritus, Denies erythema and Denies rash Neurologic: Denies vertigo, Denies dizziness, Denies syncope, Denies headache(s), Denies focal weakness, Denies numbness and Denies weakness Endocrine: Endocrine: Denies polydipsia and Denies polyuria Hematologic/Lymphatic: Hematologic/Lymphatic: Denies easy bleeding and Denies easy bruising Allergic/Immunologic: Allergic/Immunologic: Denies lip swelling and Denies wheezing PMFSH Past Medical History Medical History Afib Arthritis Asthma
[2020-03-10 15:48] LABS: Basophils Absolute Auto 0.06 K/mm3 (0.00-0.10); Basophils Percent Auto 0.3 % (0.0-1.0); Hematocrit 44.1 % (35.0-49.0); Hemoglobin 14.9 g/dL (12.0-15.0); Immature Granulocyte Absolute 0.21 K/mm3 (0.00-0.00); Immature Granulocyte Percent A 1.2 % (0.0-0.0); Lymphocytes Absolute Auto 1.48 K/mm3 (1.10-4.50); Lymphocytes Percent Auto 8.6 % (18.0-42.0); Mean Corpuscular HGB Conc 33.8 g/dL (32.0-36.0); Mean Corpuscular Hemoglobin 29.9 pg (27.0-31.0); Mean Corpuscular Volume 88.6 fL (78.0-102.0); Mean Platelet Volume 10.3 fl (9.2-11.8); Monocytes Absolute Auto 1.16 K/mm3 (0.10-0.90); Monocytes Percent Auto 6.7 % (2.0-11.0); Neutrophils Absolute Auto 14.4 K/mm3 (1.7-7.2); Neutrophils Percent Auto 83.2 % (50.0-70.0); Platelet Count Result 304 K/mm3 (150-420); Red Blood Count 4.98 M/mm3 (4.20-5.40); Red Cell Distribution Width 14.3 % (11.6-14.4); White Blood Count 17.3 K/mm3 (4.8-10.8)
[2020-03-10] MEDS: ALBUTEROL SULFATE (*SP) INHALER 8 PUFF INHALATION (15:49)
[2020-03-10 15:54] LABS: Add Urine Microscopic? YES; Appearance Urine Clear (Clear); Bilirubin Urine 2+ (Negative); Blood Urine Negative (Negative); Color Urine Yellow (Yellow); Glucose Urine UA Negative (Negative); Ketones Urine 1+ (Negative); Leukocyte Esterase Ur Trace LEU/UL (Negative); Nitrate Urine Negative (Negative); Protein Urine 2+ (Negative); Specific Grav Ur 1.025 (1.010-1.020); pH Urine 6.5 (5.0-8.0)
[2020-03-10 16:00] LABS: Bacteria Urine 1+ /hpf; RBC Urine 0-2 /hpf (0-2); Squamous Epithelial Cell Urine Moderate /hpf (Few); WBC Urine 0-3 /hpf (0-3)
[2020-03-10 16:01] LABS: Partial Thromboplastin Time 27.6 SEC (22.3-31.6); Prothrombin Time 10.4 Seconds (9.64-11.0)
[2020-03-10 16:06] LABS: Influenza Control Valid (Valid)
[2020-03-10 16:09] LABS: Alanine Aminotransferase 17 U/L (14-59); Albumin Level 3.5 g/dL (3.4-5.0); Alkaline Phosphatase 84 U/L (46-116); Anion Gap 12.8 mmol/L (7-16); Aspartate Amino Transferase 10 U/L (15-37); Bilirubin,Total 0.7 mg/dL (0.00-1.00); Blood Urea Nitrogen 12 mg/dL (7-18); Calcium 9.1 mg/dL (8.5-10.1); Carbon Dioxide 27 mmol/L (21-32); Chloride 101 mmol/L (98-108); Estimated Glomerular Filt Rate 55; Glucose 214 mg/dL (70-99); Lactic Acid Reflex 2.3 mmol/L (0.4-2.0); Lipase 45 U/L (73-393); Osmolality Calculated 291 mOsm/kg (285-295); Potassium 2.8 mmol/L (3.5-5.1); Sodium 138 mmol/L (136-145); Total Protein 7.2 g/dL (6.4-8.2)
[2020-03-10 16:10] LABS: Troponin I < 0.02 ng/mL (0.00-0.056)
[2020-03-10] MEDS: HYDROMORPHONE HCL 2 MG/ML VIAL 0.5 MG IV PUSH (16:10)
[2020-03-10] MEDS: SODIUM CHLORIDE 0.9% IV 1,000 ML 999 ML IV CONT (16:10)
[2020-03-10] MEDS: ONDANSETRON INJ 4 MG/2 ML VIAL IV PUSH (16:11)
[2020-03-10] MEDS: KCL 20 MEQ/SW 100 ML 100 ML 50 MEQ IVPB ×2 (16:55→19:26)
--- NOTE | 2020-03-10 17:36 | PC.NURSE ---
PT IS SEEN WITH HEART RATE INCREASING FROM 90'S TO 150 BUT NOT SUSTAINED. ERP ASKS PT TO TAKE HER DILTIAZEM 240 HOME MEDICATION TO REGULATE HER HEAR RATE SHE HAS NOT TAKEN THAT IN TWO DAYS
[2020-03-10 18:41] LABS: Reflex Lactic Acid Yes or No Add Lactic
[2020-03-10 19:13] LABS: Lactic Acid 1.9 mmol/L (0.4-2.0)
[2020-03-10 21:21] LABS: Troponin I < 0.02 ng/mL (0.00-0.056)
[2020-03-11] VITALS (20 sets, daily range): BP systolic 136–184; BP diastolic 66–106; PULSE 59–143; RESP 16–62; TEMP 36.3–37; O2SAT 91–96
[2020-03-11 01:45] LABS: Anion Gap 8.1 mmol/L (7-16); Blood Urea Nitrogen 12 mg/dL (7-18); Calcium 8.3 mg/dL (8.5-10.1); Carbon Dioxide 32 mmol/L (21-32); Chloride 104 mmol/L (98-108); Estimated CRCL calculation 76 ml/min; Estimated Glomerular Filt Rate > 60; Glucose 119 mg/dL (70-99); Osmolality Calculated 292 mOsm/kg (285-295); Potassium 3.1 mmol/L (3.5-5.1); Sodium 141 mmol/L (136-145); Troponin I < 0.02 ng/mL (0.00-0.056)
--- NOTE | 2020-03-11 02:18 | PC.NURSE ---
Notified Dr. Feliciano about pt's potassium value; No new orders at this time.
[2020-03-11] MEDS: KCL 20 MEQ/SW 100 ML 100 ML 50 MEQ IVPB (02:49)
[2020-03-11] MEDS: BUDESONIDE/FORMOTEROL (*SP) 160-4.5 MCG 6 GM INH 2 PUFF INHALATION ×2 (05:02→17:10)
[2020-03-11 05:51] LABS: Basophils Absolute Auto 0.07 K/mm3 (0.00-0.10); Basophils Percent Auto 0.5 % (0.0-1.0); Eosinophils Absolute Auto 0.08 K/mm3 (0.02-0.50); Eosinophils Percent Auto 0.6 % (1.0-6.0); Hematocrit 39.9 % (35.0-49.0); Hemoglobin 13.1 g/dL (12.0-15.0); Immature Granulocyte Absolute 0.07 K/mm3 (0.00-0.00); Immature Granulocyte Percent A 0.5 % (0.0-0.0); Lymphocytes Absolute Auto 2.33 K/mm3 (1.10-4.50); Lymphocytes Percent Auto 16.8 % (18.0-42.0); Mean Corpuscular HGB Conc 32.8 g/dL (32.0-36.0); Mean Corpuscular Hemoglobin 30.1 pg (27.0-31.0); Mean Corpuscular Volume 91.7 fL (78.0-102.0); Mean Platelet Volume 10.2 fl (9.2-11.8); Monocytes Absolute Auto 1.13 K/mm3 (0.10-0.90); Monocytes Percent Auto 8.2 % (2.0-11.0); Neutrophils Absolute Auto 10.2 K/mm3 (1.7-7.2); Neutrophils Percent Auto 73.4 % (50.0-70.0); Platelet Count Result 252 K/mm3 (150-420); Red Blood Count 4.35 M/mm3 (4.20-5.40); Red Cell Distribution Width 14.6 % (11.6-14.4); White Blood Count 13.9 K/mm3 (4.8-10.8)
[2020-03-11 06:13] LABS: Alanine Aminotransferase 15 U/L (14-59); Albumin Level 3.1 g/dL (3.4-5.0); Alkaline Phosphatase 69 U/L (46-116); Anion Gap 11.5 mmol/L (7-16); Aspartate Amino Transferase 10 U/L (15-37); Bilirubin,Total 0.5 mg/dL (0.00-1.00); Blood Urea Nitrogen 13 mg/dL (7-18); Calcium 8.2 mg/dL (8.5-10.1); Carbon Dioxide 29 mmol/L (21-32); Chloride 104 mmol/L (98-108); Estimated CRCL calculation 71 ml/min; Estimated Glomerular Filt Rate > 60; Glucose 132 mg/dL (70-99); Magnesium 2.1 mg/dL (1.8-2.4); Osmolality Calculated 294 mOsm/kg (285-295); Potassium 3.5 mmol/L (3.5-5.1); Sodium 141 mmol/L (136-145); Total Protein 6.1 g/dL (6.4-8.2)
[2020-03-11 06:15] LABS: Lactic Acid Reflex 0.6 mmol/L (0.4-2.0)
[2020-03-11 06:18] LABS: Troponin I < 0.02 ng/mL (0.00-0.056)
--- NOTE | 2020-03-11 07:26 | PC.NURSE ---
Patient reporting nausea. LINOTYPIST Saranya notified. Patient having runs of Tachy. HR jummping up to 140's for short periods of time and then dropping back down to high 90's. LINOTYPIST notified of HR as well. Patient has hob elevated. call light at side.
[2020-03-11] MEDS: hydroCHLOROthiazide 25 MG TABLET PO (07:43)
[2020-03-11] MEDS: ONDANSETRON INJ 4 MG/2 ML VIAL IV PUSH ×2 (07:43→14:49)
[2020-03-11] MEDS: lisinopriL 20 MG TABLET 40 MG PO (07:43)
--- NOTE | 2020-03-11 09:24 | PC.NURSE ---
0915 . Patient has been having some runs sinus tach. Saranya CLERICAL PRODUCTION WORKER notified and aware. Patient has home o2 prn. Patient complaining of shortness of breath with these runs. O2 sat 91% room air. O2 2.5 l/min n.c. applied 0920 o2 sats up in mid to upper 90's. Less shortness of breath reported. HR 60-70's. Patient reports took meds awhile ago and was given something for nausea. Feels like a Popsicle now. Popsicle given.
[2020-03-11] MEDS: ACETAMINOPHEN 500 MG TABLET 1000 MG PO (09:41)
[2020-03-11] MEDS: CELECOXIB 100 MG CAPSULE 200 MG PO (09:44)
[2020-03-11] MEDS: DULOXETINE HCL 30 MG CAPSULE.DR PO (09:44)
[2020-03-11] MEDS: BENZTROPINE MESYLATE 1 MG TABLET PO ×2 (09:44→17:10)
[2020-03-11] MEDS: GLIMEPIRIDE 2 MG TABLET PO (09:44)
[2020-03-11] MEDS: APIXABAN 2.5 MG TABLET 5 MG PO ×2 (09:44→17:10)
[2020-03-11] MEDS: IMIPENEM/CILASTATIN SODIUM 250 MG in DEXTROSE 5% 100 ML 300 MG IVPB (10:24)
[2020-03-11] MEDS: PANTOPRAZOLE SODIUM IV 40 MG VIAL IV PUSH ×2 (11:18→20:55)
[2020-03-11] MEDS: METOCLOPRAMIDE HCL INJ 10 MG/2 ML VIAL 5 MG IV PUSH ×3 (11:18→23:32)
[2020-03-11] MEDS: levoFLOXacin 250 MG/D5W 50 ML 250 MG/50 ML BAG 50 MG IVPB (11:18)
[2020-03-11] MEDS: LORAZEPAM INJ 2 MG/ML VIAL 0.5 MG IV PUSH (12:48)
--- NOTE | 2020-03-11 12:55 | PC.NURSE ---
Patient states she is still not feeling great. NAIL STICKER spoke with patient. Ativan given per order for anxiety. Patient has call light at side.
--- NOTE | 2020-03-11 13:15 | PM.IMHP ---
H&P: HPI History of Present Illness Chief complaint: gallbladder pain, trouble breathing <LUIS Grant-C - Last Filed: 03/11/20 14:04> Narrative: Yulia Gaston is a 64 year old female that presented to the ED with complaints of nausea, epigastric pain and weakness. Patient has a past medical history AFib, arthritis, asthma, COPD, depression, GERD, hypertension, insomnia, sleep apnea, diabetes, vision loss, and weight gain Patient was recently discharged from this hospital on 01/27 due cholelithiasis. according to patient she has had periodical nausea since her last discharge. patient noted that she was scheduled to get a procedure to determine whether she had excessive acid reflux but due to the COVID-19 it was cancelled. her productive cough has also increased . patient also noted due to her nausea appetite has decreased. patient also complained of palpitations.today she still complains pain epigastric pain. patient also use continuous oxygen.while in the ED patient's CT of the abdomen unchanged from previous visit. patient was also tachycardia due to her inability to take a Cardizem, patient lactic acid was 0.6 Mag 2.1 troponin negative x3 blood culture pending COVID-19 collected negative. patient has been admitted for tachycardia, COPD and acute hypokalemia with abdominal pain. . Patient denies , CP,, extremity numbness, lightheadness, dizziness, constipation, diarrhea, chills or fever. patient will possibly discharge tomorrow once her nausea and pain has been controlled . <LUIS Grant-Lenora - Last Filed: 03/11/20 14:04> Review of Systems Review of Systems: Narrative: CONSTITUTIONAL : patient complains of weakness and fatigue, HEENT: Eyes: No diplopia or blurred vision. ENT: No earache, sore throat or runny nose. CARDIOVASCULAR: No pressure, squeezing, strangling, tightness, heaviness or aching about the chest, neck, axilla or epigastrium. RESPIRATORY: patient has productive cough that has worsened she also has worsening shortness of breath, GASTROINTESTINAL: patient with nausea no vomiting with epigastric pain GENITOURINARY: No dysuria, frequency or urgency. MUSCULOSKELETAL: patient has chronic back pain SKIN: No change in skin, hair or nails. NEUROLOGIC: No paresthesias, fasciculations, seizures or weakness. PSYCHIATRIC: No disorder of thought or mood. ENDOCRINE: No heat or cold intolerance, polyuria or polydipsia. HEMATOLOGICAL: No easy bruising or bleeding. <SATHYA Grant - Last Filed: 03/11/20 14:04> [facility] Past Medical History Medical History: Medical History Afib Arthritis Asthma COPD (chronic obstructive pulmonary disease) Depressed Emphysema/COPD GERD (gastroesophageal reflux disease) HTN (hypertension) Insomnia Sleep apnea T2DM (type 2 diabetes mellitus) Vision loss Weight gain <SATHYA Grant - Last Filed: 03/11/20 14:04> Surgical History Surgical History: Surgical History Bunion removed H/O removal of cyst History of bilateral tubal ligation <SATHYA Grant - Last Filed: 03/11/20 14:04> Social History Social History: Social History Smoking status: Former smoker Tobacco type: cigarettes Second hand tobacco smoke exposure: Yes Smoking end date: 09/22/10 Alcohol intake: never Substance use: never Substance use type: does not use Gender identity (if verbalized by the patient): Female Sexual Orientation (if Verbalized by the Patient): Straight or Heterosexual Spiritual care concerns: No Agree to blood products: Yes <SATHYA Grant - Last Filed: 03/11/20 14:04> Meds Home Medications and Allergies Home medications: Home Medications Medication Instructions Recorded Confirmed Type duloxetine 30 mg capsule,delayed 30
[2020-03-11 13:20] LABS: SARS-CoV-2 RNA PCR Negative
[2020-03-11] MEDS: SODIUM CHLORIDE 0.9% IV 1,000 ML 50 ML IV CONT (13:56)
[2020-03-11] MEDS: predniSONE 20 MG TABLET 60 MG PO (14:49)
[2020-03-11] MEDS: FLUTICASONE PROP 44 MCG (*SP) 10.6 GM 2 PUFF INHALATION (17:10)
[2020-03-11] MEDS: CARIPRAZINE 1.5 MG 1 EACH BY MOUTH (20:54)
--- NOTE | 2020-03-11 23:45 | PC.NURSE ---
Patient just back from bathroom when nurse entered room. Respirations even and unlabored with O2 on @ 2 lpm/nc. Patient says she'd been getting SOB when she goes to bathroom earlier but not the last couple times. Denies nausea/pain/complaints/needs @ this time. No distress noted. Call light in reach.
[2020-03-12] VITALS: BP 119/71; PULSE 76; RESP 20; TEMP 36.7; O2SAT 97
[2020-03-12 04:00] VITALS: BP 132/66; PULSE 60; RESP 20; TEMP 36.7; O2SAT 93
[2020-03-12] MEDS: BUDESONIDE/FORMOTEROL (*SP) 160-4.5 MCG 6 GM INH 2 PUFF INHALATION (05:43)
[2020-03-12] MEDS: METOCLOPRAMIDE HCL INJ 10 MG/2 ML VIAL 5 MG IV PUSH (05:43)
[2020-03-12] MEDS: FLUTICASONE PROP 44 MCG (*SP) 10.6 GM 2 PUFF INHALATION (05:44)
[2020-03-12 06:53] LABS: Hematocrit 39.2 % (35.0-49.0); Hemoglobin 13.3 g/dL (12.0-15.0); Mean Corpuscular HGB Conc 33.9 g/dL (32.0-36.0); Mean Corpuscular Hemoglobin 30.4 pg (27.0-31.0); Mean Corpuscular Volume 89.5 fL (78.0-102.0); Mean Platelet Volume 9.9 fl (9.2-11.8); Platelet Count Result 254 K/mm3 (150-420); Red Blood Count 4.38 M/mm3 (4.20-5.40); Red Cell Distribution Width 14.1 % (11.6-14.4); White Blood Count 13.9 K/mm3 (4.8-10.8)
[2020-03-12 07:12] LABS: Alanine Aminotransferase 15 U/L (14-59); Albumin Level 3.2 g/dL (3.4-5.0); Alkaline Phosphatase 70 U/L (46-116); Aspartate Amino Transferase 12 U/L (15-37); Bilirubin,Total 0.5 mg/dL (0.00-1.00); Blood Urea Nitrogen 12 mg/dL (7-18); Calcium 8.5 mg/dL (8.5-10.1); Carbon Dioxide 32 mmol/L (21-32); Chloride 102 mmol/L (98-108); Estimated CRCL calculation 74 ml/min; Estimated Glomerular Filt Rate > 60; Glucose 135 mg/dL (70-99); Osmolality Calculated 291 mOsm/kg (285-295); Sodium 140 mmol/L (136-145); Total Protein 6.3 g/dL (6.4-8.2)
[2020-03-12 07:20] VITALS: BP 135/78; PULSE 79; RESP 18; TEMP 36.6; O2SAT 94
[2020-03-12] MEDS: BENZTROPINE MESYLATE 1 MG TABLET PO (09:32)
[2020-03-12] MEDS: CELECOXIB 100 MG CAPSULE 200 MG PO (09:32)
[2020-03-12] MEDS: hydroCHLOROthiazide 25 MG TABLET PO (09:32)
[2020-03-12] MEDS: VITAMIN B COMPLEX CAPSULE 1 CAP PO (09:32)
[2020-03-12] MEDS: METOCLOPRAMIDE HCL 10 MG TABLET PO (09:33)
[2020-03-12] MEDS: DULOXETINE HCL 30 MG CAPSULE.DR PO (09:33)
[2020-03-12] MEDS: predniSONE 40 MG, predniSONE 10 MG 50 MG PO (09:33)
[2020-03-12] MEDS: lisinopriL 20 MG TABLET 40 MG PO (09:36)
[2020-03-12] MEDS: MONTELUKAST SODIUM 10 MG TABLET PO (09:37)
[2020-03-12] MEDS: APIXABAN 2.5 MG TABLET 5 MG PO (09:37)
[2020-03-12] MEDS: GLIMEPIRIDE 2 MG TABLET PO (09:37)
[2020-03-12] MEDS: FOLIC ACID 1 MG TABLET PO (09:37)
--- NOTE | 2020-03-12 10:45 | PC.NURSE ---
All discharge instructions and education reviewed with patient. Patient states understanding. IV site to right hand removed, tip intact. Dressing applied to site. Telemetry removed, pt. able to dress self in clothes from home with no assist. All belonging gathered together to be sent home with patient. All home medications returned to patient. Waiting for patients friend to arrive to transport her home.
--- NOTE | 2020-03-12 11:00 | PC.NURSE ---
Patients friend here to transport patient home. This nurse accompanied patient to front door via wheelchair. Patient transfered from wheelchair to car with no assist. Patient left via private vehicle with friend. All belongings and discharge instructions sent home with patient. Patient denies any questions at discharge.
--- NOTE | 2020-03-12 12:59 | PM.IMHP ---
H&P: HPI History of Present Illness Chief complaint: gallbladder pain, trouble breathing Narrative: Yulia Gaston is a 64 year old female THAT WAS ADMITTED ON 03/10/2020 . SHE presented to the ED with complaints of nausea, epigastric pain and weakness. Patient has a past medical history AFib, arthritis, asthma, COPD, depression, GERD, hypertension, insomnia, sleep apnea, diabetes, vision loss, and weight gain Patient was recently discharged from this hospital on 01/27 due cholelithiasis. according to patient she has had periodical nausea since her last discharge. patient noted that she was scheduled to get a procedure to determine whether she had excessive acid reflux but due to the COVID-19 it was cancelled. her productive cough haD also increased . patient also noted due to her nausea HER appetite has decreased. patient also complained of palpitations. TODAY PATIENT WILL DISCHARGE HOME. SHE WILL CONTINUE REGLAN, PANTOPRAZOLE AND PAIN MEDICATION WHICH IMPROVED HER CONDITION. SHE NO LONGER HAS ABDOMINAL PAIN AND IS ABLE TO TOLERATE ALL HER MEALS. SHE WILL DISCHARGE TO FOLLOW-UP WITH HER PRIMARYCARE PHYSICIAN. HER POTASSIUM WAS BELOW NORMAL LIMITS ON DISCHARGE SHE WAS PRESCRIBED 1 WEEK SUPPLY OF POTASSIUM WITH A REPEAT LABS. HER RESULTS WILL GO TO HER PRIMARY CARE PHYSICIAN SHE WAS ALSO INSTRUCTED TO FOLLOW-UP WITH HER CARE PHYSICIAN IN 1-2 WEEKS. PATIENT ABLE TO TOLERATE ALL MEALS , SLEPT WELL AND AMBULATE AT BASELINE. PATIENT DENIES SOB, CP, PALPITATION, EXTREMITY NUMBNESS, LIGHTHEADNESS, DIZZINESS, CONSTIPATION, DIARRHEA, CHILLS OR FEVER. PATIENT AGREE THAT THEY ARE READY FOR DISCHARGE AND DISCHARGE PLAN. Review of Systems Review of Systems: Narrative: CONSTITUTIONAL :NO WEIGHT LOSS, FEVER, CHILLS, WEAKNESS OR FATIGUE.: HEENT: EYES: NO DIPLOPIA OR BLURRED VISION. ENT: NO EARACHE, SORE THROAT OR RUNNY NOSE. CARDIOVASCULAR: NO PRESSURE, SQUEEZING, STRANGLING, TIGHTNESS, HEAVINESS OR ACHING ABOUT THE CHEST, NECK, AXILLA OR EPIGASTRIUM. RESPIRATORY: NO COUGH, SHORTNESS OF BREATH, PND OR ORTHOPNEA. GASTROINTESTINAL: NO NAUSEA, VOMITING OR DIARRHEA. GENITOURINARY: NO DYSURIA, FREQUENCY OR URGENCY. MUSCULOSKELETAL: NO MUSCLE, BACK PAIN, JOINT PAIN OR STIFFNESS. SKIN: NO CHANGE IN SKIN, HAIR OR NAILS. NEUROLOGIC: NO PARESTHESIAS, FASCICULATIONS, SEIZURES OR WEAKNESS. PSYCHIATRIC: NO DISORDER OF THOUGHT OR MOOD. ENDOCRINE: NO HEAT OR COLD INTOLERANCE, POLYURIA OR POLYDIPSIA. HEMATOLOGICAL: NO EASY BRUISING OR BLEEDING. [facility] Past Medical History Medical History Afib Arthritis Asthma COPD (chronic obstructive pulmonary disease) Depressed Emphysema/COPD GERD (gastroesophageal reflux disease) HTN (hypertension) Insomnia Sleep apnea T2DM (type 2 diabetes mellitus) Vision loss Weight gain Surgical History Surgical History Bunion removed H/O removal of cyst History of bilateral tubal ligation Social History Social History Smoking status: Former smoker Tobacco type: cigarettes Second hand tobacco smoke exposure: Yes Smoking end date: 09/22/10 Alcohol intake: never Substance use: never Substance use type: does not use Gender identity (if verbalized by the patient): Female Sexual Orientation (if Verbalized by the Patient): Straight or Heterosexual Spiritual care concerns: No Agree to blood products: Yes Meds Home Medications and Allergies Home Medications Medication Instructions Recorded Confirmed Type duloxetine 30 mg capsule,delayed 30 mg PO DAILY 07/27/19 03/10/20 History release hydrochlorothiazide 25 mg tablet 25 mg PO DAILY 07/27/19 03/10/20 History lisinopril 40 mg tablet 40 mg PO DAILY 07/27/19 03/10/20 History montelukast 10 mg tablet 10 mg PO DAILY 07/27/19 03/10/20 History Eliquis 5 mg PO BID 01/26/20 03/10/20 H
== END 2020-03-12 11:00 | disposition home or self-care (01) ==
LOC: CHSED 15:07 → CHS2ND 17:50
PROVIDERS: Nurse Practitioner; Admitting Provider Emergency Medicine; Emergency Provider Emergency Medicine; PCP Family Medicine; Visit Provider Emergency Medicine
DX: R00.0 Tachycardia, unspecified (principal); E87.6 Hypokalemia; R00.2 Palpitations; K80.20 Calculus of gallbladder without cholecystitis without obstruction; J44.9 Chronic obstructive pulmonary disease, unspecified; I48.20 Chronic atrial fibrillation, unspecified; K21.9 Gastro-esophageal reflux disease without esophagitis; E11.9 Type 2 diabetes mellitus without complications; M19.90 Unspecified osteoarthritis, unspecified site; K76.0 Fatty (change of) liver, not elsewhere classified; H54.7 Unspecified visual loss; G47.30 Sleep apnea, unspecified; F32.9 Major depressive disorder, single episode, unspecified; G47.00 Insomnia, unspecified; Z20.828 Contact with and (suspected) exposure to other viral communicable diseases; Z87.891 Personal history of nicotine dependence; E66.01 Morbid (severe) obesity due to excess calories; Z79.02 Long term (current) use of antithrombotics/antiplatelets
CPT/HCPCS: 36415; 71046; 74177; 80048; 80053; 81001; 83605; 83690; 83735; 84484; 85025; 85027; 85610; 85730; 87040; 87635; 87804; 93005; 94640; 96361; 96365; 96366; 96367; 96375; 96376; 99285; A9270; C9113; C9803; G0378; J0743; J1170; J1956; J2060; J2405; J2765; J3480; J7030; J7512; Q9965; U0003

== ENCOUNTER 2020-03-20 09:54 | Outpatient (CLI) | payer MEDICARE, SELFPAY ==
[2020-03-20 10:45] LABS: Potassium 3.9 mmol/L (3.5-5.1)
== END 2020-03-20 09:55 | disposition home or self-care (01) ==
LOC: CHSLAB 09:55
PROVIDERS: PCP Family Medicine; Visit Provider Nurse Practitioner
DX: E87.6 Hypokalemia (principal)
CPT/HCPCS: 36415; 84132

== ENCOUNTER 2020-04-15 10:09 | Outpatient (CLI) | payer MEDICARE, MEDICAID, SELFPAY ==
--- NOTE | ~2020-04-15 | XR_ITS ---
XR knee RT 3V DATE: 04/15/2020 10:54 INDICATION: Generalized pain. Unable to bear weight. TECHNIQUE: 3 views COMPARISON: 08/09/2018 MRI right knee 06/19/2018 right knee FINDINGS: There is tri-compartment osteoarthritis, greatest at the medial compartment. There is promi nence of the tibial spines. No fracture or dislocation or joint effusion. No periosteal reaction or bone destruction. No radio paque intra-articular loose body or chondrocalcinosis. IMPRESSION: Tri-compartment osteoarthritis Reviewed, dictated and finalized at location A.
--- NOTE | ~2020-04-15 | XR_ITS ---
XR tibia fibula RT 2V DATE: 04/15/2020 11:02 INDICATION: Generalized pain. Unable to bear weight. TECHNIQUE: AP and lateral views COMPARISON: None FINDINGS: Tri-compartment osteoarthritis of the knee. No fracture or dislocation, periosteal reactio n or bone destruction. IMPRESSION: Tri-compartment osteoarthritis of knee Reviewed, dictated and finalized at location A.
--- NOTE | ~2020-04-15 | XR_ITS ---
XR tibia fibula LT 2V DATE: 04/15/2020 11:03 INDICATION: Generalized left knee pain. Unable to bear weight. TECHNIQUE: AP and lateral views COMPARISON: None FINDINGS: There is tri-compartment osteoarthritis. No fracture or dislocation, periosteal reaction o r bone destruction. IMPRESSION: Tri-compartment osteoarthritis of knee Plantar calcaneal enthesopathy Reviewed, dictated and finalized at location A.
--- NOTE | ~2020-04-15 | XR_ITS ---
XR knee LT 3V DATE: 04/15/2020 10:53 INDICATION: Generalized pain. Unable to bear weight. TECHNIQUE: 4 views COMPARISON: None FINDINGS: There is tri-compartment osteoarthritis, most prominent at the medial compartment. No fracture or dislocation . There is suprapatellar joint effusion. No radiopaque intra-articular l oose body or chondrocalcinosis. IMPRESSION: Tri-compartment osteoarthritis Suprapatellar joint effusion Reviewed, dictated and finalized at location A.
== END 2020-04-15 10:10 | disposition home or self-care (01) ==
LOC: CHSIMG 10:12
PROVIDERS: PCP Family Medicine; Visit Provider Family Medicine
DX: M25.569 Pain in unspecified knee (principal); M79.669 Pain in unspecified lower leg
CPT/HCPCS: 73562; 73590

== ENCOUNTER 2020-05-09 12:09 | Outpatient (CLI) | payer MEDICARE, MEDICAID, SELFPAY ==
--- NOTE | ~2020-05-09 | XR_ITS ---
EXAMINATION: XR chest 2V DATE: 05/09/2020 14:53 INDICATION: Syncope and leukocytosis TECHNIQUE: PA and lateral views of the chest are obtained. COMPARISON: 03/10/2020 FINDINGS: The lungs are free of acute opacities. There is no pleural effusion or pneumothorax. There is stable cardiomegaly. There is moderate thoracic spondylosis. IMPRESSION: 1. No acute cardiopulmonary abnormality. 2. Stable cardiomegaly. 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
[2020-05-09 12:23] LABS: Hematocrit 46.6 % (35.0-49.0); Mean Corpuscular HGB Conc 34.3 g/dL (32.0-36.0); Mean Corpuscular Hemoglobin 30.7 pg (27.0-31.0); Mean Corpuscular Volume 89.3 fL (78.0-102.0); Platelet Count Result 414 K/mm3 (150-420); Red Blood Count 5.22 M/mm3 (4.20-5.40); Red Cell Distribution Width 14.1 % (11.6-14.4)
--- NOTE | 2020-05-09 12:30 | ECG_ITS ---
Measurements Intervals [place] Rate: 89 P: 93 DC: 156 QRS: 40 QRSD: 92 T: 45 QT: 382 QTc: 466 Interpretive Statements SINUS RHYTHM ATRIAL PREMATURE COMPLEX BORDERLINE ECG Electronically Signed On 05-09-2020 13:15:53 CDT by Gary Taveras D.O.
[2020-05-09 12:56] LABS: White Blood Count 21.4 K/mm3 (4.8-10.8)
[2020-05-09 13:10] LABS: Band Neutrophils Percent 0 % (0-6); Basophils Absolute Manual 0.21 K/mm3 (0-0.1); Basophils Percent Manual 1 % (0-1); Eosinophils Absolute Manual 0.21 K/mm3 (0.02-0.5); Eosinophils Percent Manual 1 % (1-6); Lymphocytes Absolute Manual 3.63 K/mm3 (1.1-4.5); Lymphocytes Percent Manual 17 % (18-44); Monocytes Absolute Manual 1.71 K/mm3 (0.1-0.90); Monocytes Percent Manual 8 % (3-9); Neutrophils Absolute Manual 15.62 K/mm3 (1.7-7.2); Neutrophils Percent Manual 73 % (46-73); Total Cells Counted 100
[2020-05-09 13:11] LABS: Platelet Estimate Adequate (Adequate)
[2020-05-09 13:21] LABS: Alanine Aminotransferase 16 U/L (14-59); Albumin Level 3.9 g/dL (3.4-5.0); Alkaline Phosphatase 93 U/L (46-116); Anion Gap 10 mmol/L (8-16); Aspartate Amino Transferase 11 U/L (15-37); Bilirubin,Total 0.8 mg/dL (0.00-1.00); Blood Urea Nitrogen 15 mg/dL (7-18); Calcium 9.4 mg/dL (8.5-10.1); Carbon Dioxide 30 mmol/L (21-32); Chloride 98 mmol/L (98-108); Creatine Kinase 48 U/L (26-192); Estimated Glomerular Filt Rate 42; Glucose 165 mg/dL (70-99); Osmolality Calculated 290 mOsm/kg (285-295); Potassium 3.1 mmol/L (3.5-5.1); Sodium 138 mmol/L (136-145); Total Protein 7.4 g/dL (6.4-8.2); Troponin I < 0.02 ng/mL (0.00-0.056)
[2020-05-09 17:06] LABS: Add Urine Microscopic? YES; Appearance Urine Sl Cloudy (Clear); Bilirubin Urine 2+ (Negative); Blood Urine Negative (Negative); Color Urine Yellow (Yellow); Glucose Urine UA Negative (Negative); Ketones Urine 1+ (Negative); Leukocyte Esterase Ur Negative (Negative); Nitrate Urine Positive (Negative); Protein Urine 2+ (Negative); Specific Grav Ur 1.025 (1.010-1.020); pH Urine 5.5 (5.0-8.0)
[2020-05-09 17:19] LABS: RBC Urine 0-2 /hpf (0-2)
[2020-05-09 17:20] LABS: Bacteria Urine 2+ /hpf; Squamous Epithelial Cell Urine Moderate /hpf (Few)
== END 2020-05-09 12:10 | disposition home or self-care (01) ==
PROVIDERS: PCP Family Medicine; Visit Provider Family Medicine
DX: R11.2 Nausea with vomiting, unspecified (principal); I48.91 Unspecified atrial fibrillation; D72.829 Elevated white blood cell count, unspecified; N39.0 Urinary tract infection, site not specified
CPT/HCPCS: 36415; 71046; 80053; 81001; 82550; 82553; 84484; 85025; 87086; 87088; 93005

== ENCOUNTER 2020-06-05 08:46 | Outpatient (CLI) | payer MEDICARE, SELFPAY ==
[2020-06-05 09:00] LABS: Basophils Absolute Auto 0.07 K/mm3 (0.00-0.10); Basophils Percent Auto 0.6 % (0.0-1.0); Eosinophils Absolute Auto 0.57 K/mm3 (0.02-0.50); Eosinophils Percent Auto 4.8 % (1.0-6.0); Hematocrit 44.7 % (35.0-49.0); Hemoglobin 14.5 g/dL (12.0-15.0); Immature Granulocyte Absolute 0.06 K/mm3 (0.00-0.00); Immature Granulocyte Percent A 0.5 % (0.0-0.0); Lymphocytes Percent Auto 17.8 % (18.0-42.0); Mean Corpuscular HGB Conc 32.4 g/dL (32.0-36.0); Mean Corpuscular Hemoglobin 30.3 pg (27.0-31.0); Mean Corpuscular Volume 93.5 fL (78.0-102.0); Mean Platelet Volume 9.8 fl (9.2-11.8); Monocytes Absolute Auto 0.76 K/mm3 (0.10-0.90); Monocytes Percent Auto 6.5 % (2.0-11.0); Neutrophils Absolute Auto 8.2 K/mm3 (1.7-7.2); Neutrophils Percent Auto 69.8 % (50.0-70.0); Platelet Count Result 304 K/mm3 (150-420); Red Blood Count 4.78 M/mm3 (4.20-5.40); Red Cell Distribution Width 13.8 % (11.6-14.4); White Blood Count 11.8 K/mm3 (4.8-10.8)
[2020-06-05 09:17] LABS: Hemoglobin A1C 6.2 % (<5.7)
[2020-06-05 09:32] LABS: Alanine Aminotransferase 17 U/L (14-59); Albumin Level 3.6 g/dL (3.4-5.0); Alkaline Phosphatase 95 U/L (46-116); Anion Gap 7 mmol/L (8-16); Aspartate Amino Transferase < 10 U/L (15-37); Bilirubin,Total 0.4 mg/dL (0.00-1.00); Blood Urea Nitrogen 14 mg/dL (7-18); Calcium 8.8 mg/dL (8.5-10.1); Carbon Dioxide 30 mmol/L (21-32); Chloride 105 mmol/L (98-108); Cholesterol 147 mg/dL (0-200); Creatine Kinase 26 U/L (26-192); Estimated Glomerular Filt Rate > 60; Glucose 174 mg/dL (70-99); HDL Direct 22 mg/dL (40-60); LDL Cholesterol Calculated 72 mg/dL (<130); Osmolality Calculated 298 mOsm/kg (285-295); Potassium 3.6 mmol/L (3.5-5.1); Sodium 142 mmol/L (136-145); Total Protein 6.6 g/dL (6.4-8.2); Triglycerides 263 mg/dL (0-150)
== END 2020-06-05 08:47 | disposition home or self-care (01) ==
LOC: CHSLAB 08:49
PROVIDERS: PCP Family Medicine; Visit Provider Family Medicine
DX: E78.2 Mixed hyperlipidemia (principal); E11.9 Type 2 diabetes mellitus without complications
CPT/HCPCS: 36415; 80053; 80061; 82550; 83036; 85025

== ENCOUNTER 2020-06-12 09:38 | Outpatient (CLI) | payer MEDICARE, MEDICAID, SELFPAY ==
--- NOTE | ~2020-06-12 | XR_ITS ---
[[id number] ] INDICATION: Right rib pain TECHNIQUE: Frontal projection of the upper right ribs, frontal projection of the lower right ribs, ob lique projection of all the right ribs, frontal inspiratory chest x-ray for interpretation. FINDINGS: There are no displaced rib fractures identified. There are no soft tissue abnormality see n. The lungs are clear. IMPRESSION: 1:No displaced rib fractures. 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
== END 2020-06-12 09:39 | disposition home or self-care (01) ==
LOC: CHSIMG 09:41
PROVIDERS: PCP Family Medicine; Visit Provider Family Medicine
DX: R19.07 Generalized intra-abdominal and pelvic swelling, mass and lump (principal); R07.89 Other chest pain
CPT/HCPCS: 71101

== ENCOUNTER 2020-09-13 13:24 | Outpatient (CLI) | payer MEDICARE, SELFPAY ==
[2020-09-13 13:36] LABS: Basophils Absolute Auto 0.08 K/mm3 (0.00-0.10); Basophils Percent Auto 0.7 % (0.0-1.0); Eosinophils Absolute Auto 0.66 K/mm3 (0.02-0.50); Eosinophils Percent Auto 5.9 % (1.0-6.0); Hemoglobin 13.7 g/dL (11.7-13.8); Immature Granulocyte Absolute 0.08 K/mm3 (0.00-0.00); Immature Granulocyte Percent A 0.7 % (0.0-0.0); Lymphocytes Absolute Auto 2.19 K/mm3 (1.10-4.50); Lymphocytes Percent Auto 19.6 % (18.0-42.0); Mean Corpuscular HGB Conc 32.6 g/dL (32.0-36.0); Mean Corpuscular Hemoglobin 30.6 pg (27.0-31.0); Monocytes Absolute Auto 0.74 K/mm3 (0.10-0.90); Monocytes Percent Auto 6.6 % (2.0-11.0); Neutrophils Absolute Auto 7.4 K/mm3 (1.7-7.2); Neutrophils Percent Auto 66.5 % (50.0-70.0); Platelet Count Result 270 K/mm3 (150-420); Red Blood Count 4.47 M/mm3 (4.20-5.40); Red Cell Distribution Width 13.6 % (11.6-14.4); White Blood Count 11.2 K/mm3 (4.8-10.8)
[2020-09-13 13:45] LABS: Hemoglobin A1C 5.6 % (<5.7)
[2020-09-13 14:08] LABS: Anion Gap 7 mmol/L (8-16); Blood Urea Nitrogen 15 mg/dL (7-18); Calcium 9.3 mg/dL (8.5-10.1); Carbon Dioxide 29 mmol/L (21-32); Chloride 104 mmol/L (98-108); Estimated Glomerular Filt Rate > 60; Glucose 157 mg/dL (70-99); Osmolality Calculated 293 mOsm/kg (285-295); Potassium 3.9 mmol/L (3.5-5.1); Sodium 140 mmol/L (136-145)
== END 2020-09-13 13:25 | disposition home or self-care (01) ==
LOC: CHSLAB 13:26
PROVIDERS: PCP Family Medicine; Visit Provider Family Medicine
DX: E11.9 Type 2 diabetes mellitus without complications (principal)
CPT/HCPCS: 36415; 80048; 83036; 85025

== ENCOUNTER 2020-10-08 17:23 | Observation (INO) | payer MEDICARE, MEDICAID, SELFPAY ==
--- NOTE | ~2020-10-08 | CT_ITS ---
EXAMINATION: CT abdomen pelvis w con DATE: 10/08/2020 20:09 INDICATION: Right upper quadrant abdominal pain TECHNIQUE: Computed tomography (CT) of the abdomen and pelvis was performed with 100 mL Omnipaque-350 intravenous contrast. Automated exposure control and iterative reconstruction technique were employe d. The dose-length product was 1272.73 mGy-cm. COMPARISON: 03/10/2020 FINDINGS: Minimal atelectasis in the left lower lobe. Mild cardiomegaly. No pericardial or pleural effusion. Di ffuse hepatic steatosis with more focal fat at the ligamentum teres. Gallstone in the dependent aspec t of the normal-appearing gallbladder. No gallbladder wall thickening or pericholecystic from her marie nge to suggest acute cholecystitis. Spleen, pancreas, right kidney and bilateral adrenal glands are n ormal. 1 cm left renal cyst. Bladder and anteverted uterus are normal. Likely tubal ligation rings at the bilateral adnexa which are otherwise unremarkable. A couple diverticula along the sigmoid colon without adjacent from 3 change to suggest diverticulitis. Small [place] umbilical hernia containing the anterior wall of a loop of nonobstructed small bowel. Small bowel and appendix are normal. No fr ee intraperitoneal gas or fluid. No pathologically enlarged abdominal or pelvic lymphadenopathy. Mild lumbar levoscoliosis with severe lower thoracic and mild lumbar spondylosis. IMPRESSION: 1. Cholelithiasis without findings to suggest acute cholecystitis. 2. Unchanged small wide mouthed umbilical hernia containing fat and anterior margin of a short segmen t of nonobstructed small bowel. 3. Cardiomegaly. 4. Diffuse hepatic steatosis. 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 ER IMPRESSION: 1. Cholelithiasis without findings to suggest acute cholecystitis. 2. Unchanged small wide mouthed umbilical hernia containing fat and anterior ma rgin of a short segment of nonobstructed small bowel. 3. Cardiomegaly. 4. Diffuse hepatic steatosis.
--- NOTE | ~2020-10-08 | XR_ITS ---
EXAMINATION: XR chest 1V portable DATE: 10/08/2020 21:19 INDICATION: Shortness of breath TECHNIQUE: frontal view of the chest was obtained. COMPARISON: Chest radiograph dated 05/09/[address] abdomen and pelvis dated 10/08/2020 at 8:02 PM FINDINGS: Increased opacities in the lower lung zones particularly in the left lower lung zone which side from mild atelectasis in the left lower lobar without correlate on the CT from an hour and a half prior an d are likely related to patient body habitus and portable technique. No other airspace opacities, pul monary edema, pleural effusion or pneumothorax. Cardiomegaly. IMPRESSION: 1. Mild left basilar atelectasis. 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
[2020-10-08 17:40] VITALS: BP 182/104; PULSE 86; RESP 18; TEMP 37.1; O2SAT 95
[2020-10-08] MEDS: ONDANSETRON INJ 4 MG/2 ML VIAL IV PUSH ×2 (17:45→20:40)
--- NOTE | 2020-10-08 17:58 | ED.ABDPAIN ---
HPI - Abdominal Pain General Chief Complaint: Abdominal Pain Stated Complaint: Gallbladder Time Seen by Provider: 10/08/20 17:45 Source: patient Mode of arrival: ambulatory Limitations: no limitations History of Present Illness HPI narrative: Patient comes in with abdominal pain in RUQ that has been going on for days. She was told she had a gallbladder problem years ago. She says she has had chills for 2 days and sweats. MD elicited complaint: abdominal pain Pertinent past history: other (gall bladder issues) Pain Consistency: intermittent Location: epigastric and RUQ Severity: moderate Quality: cramping Radiation: epigastric Exacerbating factors: eating Relieving factors: rest Related Data Home Medications Medication Instructions Recorded Confirmed duloxetine 30 mg capsule,delayed 30 mg PO DAILY 07/27/19 10/08/20 release hydrochlorothiazide 25 mg tablet 25 mg PO DAILY 07/27/19 10/08/20 lisinopril 40 mg tablet 40 mg PO DAILY 07/27/19 10/08/20 montelukast 10 mg tablet 10 mg PO DAILY 07/27/19 10/08/20 Eliquis 5 mg PO BID 01/26/20 10/08/20 Vraylar 1.5 mg PO DAILY 01/26/20 10/08/20 albuterol sulfate [ProAir HFA] 1 inh INHALATION QID PRN 01/26/20 10/08/20 celecoxib [Celebrex] 200 mg PO DAILY 01/26/20 10/08/20 diltiazem HCl 240 mg PO DAILY 01/26/20 10/08/20 fluticasone propionate 1 inh INHALATION BID 01/26/20 10/08/20 glimepiride 2 mg PO DAILY 01/26/20 10/08/20 folic acid 1 mg PO DAILY 03/10/20 10/08/20 vitamin B complex [B 1 tablet PO BID 03/10/20 10/08/20 Complex-Vitamin B12] deutetrabenazine [Austedo] 12 mg PO BID 10/08/20 10/08/20 Allergies Allergy/AdvReac Type Severity Reaction Status Date / Time codeine AdvReac Unknown sick to Verified 02/18/20 09:26 stomach Review of Systems Review of Systems: ROS unobtainable: Yes unobtainable due to endotracheal tube Constitutional: Constitutional: Reports no additional constitutional complaints Eyes: Eyes: Reports no additional eye complaints ENT: Reports system reviewed and no additional complaints, except as documented Cardiovascular: Cardiovascular: Reports no additional cardiovascular complaints Respiratory: Respiratory: Reports no additional respiratory complaints Gastrointestinal: Gastrointestinal: Reports no additional gastrointestinal complaints Genitourinary: Genitourinary: Reports no additional female genitourinary complaints Musculoskeletal: Musculoskeletal: Reports no additional musculoskeletal complaints Integumentary/Breasts: Skin/Breast: Reports system reviewed and no additional complaints, except as docu Neurologic: Reports system reviewed and no additional complaints, except as documented Psychiatric: Psychiatric: Reports no additional psychiatric complaints Endocrine: Endocrine: Reports no additional endocrine complaints Hematologic/Lymphatic: Hematologic/Lymphatic: Reports no additional hematologic/lymphatic complaints Allergic/Immunologic: Allergic/Immunologic: Reports no additional allergic/immunologic complaints [facility] Past Medical History Medical History (Updated 10/08/20 @ 21:53 by Ford Blount MD) Afib Arthritis Asthma COPD (chronic obstructive pulmonary disease) Depressed Emphysema/COPD GERD (gastroesophageal reflux disease) HTN (hypertension) Insomnia Sleep apnea T2DM (type 2 diabetes mellitus) Vision loss Weight gain Surgical History Surgical History Bunion removed H/O removal of cyst History of bilateral tubal ligation Family History Family History Father Family history of malignant neoplasm Leukemia Mother Family history of malignant neoplasm Pancreatic cancer Sibling Family history of malignant neoplasm Social History Social History Smoking status: Former smoker Tobacco type: cigarettes Second hand tobacco smoke exposure: Yes Smoking en
[2020-10-08] MEDS: HYDROmorphone HCL INJ (*CRX) 2 MG/ML VIAL 0.5 MG IV PUSH (18:02)
[2020-10-08] MEDS: LACTATED RINGERS 1,000 ML 500 ML IV CONT (18:17)
[2020-10-08 18:40] LABS: Basophils Absolute Auto 0.07 K/mm3 (0.00-0.10); Basophils Percent Auto 0.4 % (0.0-1.0); Hematocrit 46.5 % (35.0-42.0); Hemoglobin 15.3 g/dL (11.7-13.8); Immature Granulocyte Absolute 0.16 K/mm3 (0.00-0.00); Immature Granulocyte Percent A 0.9 % (0.0-0.0); Lymphocytes Absolute Auto 1.04 K/mm3 (1.10-4.50); Lymphocytes Percent Auto 5.8 % (18.0-42.0); Mean Corpuscular HGB Conc 32.9 g/dL (32.0-36.0); Mean Corpuscular Hemoglobin 29.6 pg (27.0-31.0); Mean Corpuscular Volume 89.9 fL (78.0-102.0); Mean Platelet Volume 10.2 fl (9.2-11.8); Monocytes Absolute Auto 0.55 K/mm3 (0.10-0.90); Monocytes Percent Auto 3.1 % (2.0-11.0); Neutrophils Absolute Auto 16.1 K/mm3 (1.7-7.2); Neutrophils Percent Auto 89.8 % (50.0-70.0); Platelet Count Result 329 K/mm3 (150-420); Red Blood Count 5.17 M/mm3 (4.20-5.40); Red Cell Distribution Width 13.7 % (11.6-14.4); White Blood Count 17.9 K/mm3 (4.8-10.8)
[2020-10-08 18:53] LABS: Alanine Aminotransferase 15 U/L (14-59); Alkaline Phosphatase 96 U/L (46-116); Anion Gap 5 mmol/L (8-16); Aspartate Amino Transferase 10 U/L (15-37); Bilirubin,Total 0.6 mg/dL (0.00-1.00); Blood Urea Nitrogen 14 mg/dL (7-18); Calcium 8.5 mg/dL (8.5-10.1); Carbon Dioxide 31 mmol/L (21-32); Chloride 98 mmol/L (98-108); Estimated CRCL calculation 61 ml/min; Estimated Glomerular Filt Rate 54; Glucose 212 mg/dL (70-99); Lipase 57 U/L (73-393); Osmolality Calculated 284 mOsm/kg (285-295); Potassium 2.8 mmol/L (3.5-5.1); Sodium 134 mmol/L (136-145); Total Protein 7.9 g/dL (6.4-8.2)
[2020-10-08 18:56] LABS: Lactic Acid Reflex 1.9 mmol/L (0.4-2.0)
[2020-10-08 19:02] LABS: SARS-CoV-2 Ag Negative (Negative)
[2020-10-08 19:12] VITALS: BP 148/85
--- NOTE | 2020-10-08 19:12 | PC.NURSE ---
REPORT TO IVY
[2020-10-08] MEDS: PROMETHAZINE HCL 25 MG/ML AMPUL 12.5 MG IV PUSH (19:19)
[2020-10-08 19:20] LABS: Magnesium 2.2 mg/dL (1.8-2.4)
[2020-10-08] MEDS: KCL 40 MEQ/0.9% SOD CHL 1,000 ML 250 ML IV CONT (19:24)
[2020-10-08 20:01] LABS: Add Urine Microscopic? YES; Appearance Urine Clear (Clear); Bilirubin Urine Negative (Negative); Blood Urine Negative (Negative); Color Urine Yellow (Yellow); Glucose Urine UA Negative (Negative); Ketones Urine 1+ (Negative); Leukocyte Esterase Ur Negative (Negative); Nitrate Urine Negative (Negative); Protein Urine Trace (Negative); Urobilinogen Urine 0.2 mg/dL (0.2-1.0)
[2020-10-08 20:08] LABS: Amorphous Sediment Urine Moderate; RBC Urine 0-2 /hpf (0-2); Squamous Epithelial Cell Urine Few /hpf (Few); WBC Urine 0-3 /hpf (0-3)
[2020-10-08 20:09] LABS: Bacteria Urine 2+ /hpf; Mucus Urine Few /lpf
[2020-10-08] MEDS: KETOROLAC 30 MG/ML VIAL (*BKC) IV PUSH (20:40)
--- NOTE | 2020-10-08 21:27 | ECG_ITS ---
Measurements Intervals [place] Rate: 91 P: 85 [place]: 178 QRS: -1 QRSD: 97 T: 48 QT: 364 QTc: 448 Interpretive Statements SINUS RHYTHM ATRIAL PREMATURE COMPLEX BORDERLINE ST ABNORMALITY- ANTEROLATERAL LEADS BORDERLINE ECG Electronically Signed On 10-09-2020 8:18:02 [employer]ATER HEATER INSTALLER by Gary Taveras D.O.
[2020-10-08 21:30] VITALS: PULSE 111
--- NOTE | 2020-10-08 21:47 | PC.NURSE ---
ERP discussed POC and will admit for 23 hr OBS Tele. Call placed to Nick Christine assigned, awaiting call back for report.
[2020-10-08 22:01] VITALS: BP 139/88; PULSE 102; RESP 18; TEMP 37.1; O2SAT 98
[2020-10-08 22:30] VITALS: BP 107/85; PULSE 50; RESP 22; TEMP 36.9; O2SAT 94
--- NOTE | 2020-10-08 22:52 | PM.OP ---
Procedure Note - Brief Procedure Note - Brief Date of procedure: 10/08/20 Pre-op diagnosis: Gallbladder Surgeon: This middle age woman presented to the ER with nausea, and hypokalemia, and mild diffuse abdominal pain. She appeared to be too nauseated to send home and expect her to be able to hold fluids down. We will treat her abdominal pain, nausea, hypokalemia and follow clinically.
[2020-10-09] VITALS: BP 97/66; PULSE 92; RESP 20; TEMP 37.2; O2SAT 95
[2020-10-09] MEDS: ONDANSETRON INJ 4 MG/2 ML VIAL IV PUSH ×2 (00:30→11:39)
--- NOTE | 2020-10-09 00:58 | ADMGEN ---
This patient, Yulia Gaston, was admitted to 2nd Floor Room 226-1. Patient oriented to hospital policies and general routines including ID bracelet, bed and alarms, visiting hours, pain management, procedures, bathroom and other care routines, personal items, smoking policy, room service/diet, and visiting hours. Information on how to activate the Rapid Response Team has been discussed. Patient is encouraged to report perceived risks to care and to ask questions if she does not understand what she is told or what she should do.
[2020-10-09 01:02] VITALS: BMI 42.0
[2020-10-09 01:49] LABS: Potassium 3.3 mmol/L (3.5-5.1)
--- NOTE | 2020-10-09 01:55 | PC.NURSE ---
Patient's telemetry showing frequent episodes of tachycardia and irregular heart rate. Patient in no distress. Charge nurse aware and will notify .
--- NOTE | 2020-10-09 01:57 | PC.NURSE ---
Dr. Blount notified of pt's potassium value; New orders received and noted.
[2020-10-09] MEDS: KCL 40 MEQ/0.9% SOD CHL 1,000 ML 250 ML IV CONT (02:08)
--- NOTE | 2020-10-09 02:10 | PC.NURSE ---
Telemetry 4 hour strip shown to Dr Blount. No new orders received for that. said once patient's hypokalemia is resolved he believes her tachycardia will resolve itself. also notified of patient being a little anxious with new order received for Xanax 0.25mg po once.
[2020-10-09] MEDS: ALPRAZolam (*CRX) 0.25 MG TABLET PO (02:20)
--- NOTE | 2020-10-09 02:20 | PC.NURSE ---
One time Xanax given to patient.
--- NOTE | 2020-10-09 02:26 | PC.NURSE ---
Addendum entered by Joanna Tovar RN 10/09/20 02:31: Dr. Blount was notified at 0157 on 10/09/20 Original Note: Discussed with Dr. Blount pt's tachycardia and Eliquis medication; New orders received and noted.
[2020-10-09 03:59] VITALS: BP 148/76; PULSE 106; RESP 20; TEMP 36.9; O2SAT 92
[2020-10-09 06:03] LABS: Anion Gap 3 mmol/L (8-16); Blood Urea Nitrogen 10 mg/dL (7-18); Calcium 7.8 mg/dL (8.5-10.1); Carbon Dioxide 29 mmol/L (21-32); Chloride 106 mmol/L (98-108); Estimated CRCL calculation 72 ml/min; Estimated Glomerular Filt Rate > 60; Glucose 159 mg/dL (70-99); Osmolality Calculated 288 mOsm/kg (285-295); Potassium 3.7 mmol/L (3.5-5.1); Sodium 138 mmol/L (136-145)
[2020-10-09 06:08] LABS: Lactic Acid Reflex 0.9 mmol/L (0.4-2.0)
[2020-10-09 08:00] VITALS: BP 125/69; PULSE 76; RESP 18; TEMP 37.2; O2SAT 91
[2020-10-09] MEDS: hydroCHLOROthiazide 25 MG TABLET PO (09:30)
[2020-10-09] MEDS: FOLIC ACID 1 MG TABLET PO (09:30)
[2020-10-09] MEDS: lisinopriL 20 MG TABLET 40 MG PO (09:30)
[2020-10-09] MEDS: GLIMEPIRIDE 2 MG TABLET PO (09:31)
[2020-10-09] MEDS: APIXABAN 2.5 MG TABLET 5 MG PO (09:31)
[2020-10-09] MEDS: MONTELUKAST SODIUM 10 MG TABLET PO (09:31)
[2020-10-09] MEDS: CELECOXIB 100 MG CAPSULE 200 MG PO (09:31)
[2020-10-09] MEDS: DULoxetine HCL 30 MG CAPSULE.DR PO (09:31)
[2020-10-09 12:00] VITALS: BP 126/78; PULSE 74; RESP 20; TEMP 37.3; O2SAT 93
--- NOTE | 2020-10-09 12:25 | PM.SD ---
Same Day Admit/Disch: HPI History of Present Illness Chief complaint: hypokalemia Narrative: Yulia Gaston is a 65 year old female that presented to urgent care with abdominal pain, nausea, chills and sweats. Patient notes that for a couple days she has been experiencing right upper quadrant, left lower quadrant and epigastric pain patient notes that she attempted to eat and started to experience nausea. Patient does deny any vomiting she did note that she spit up clear foamy secretions. On admission patient was given pain medication along with IV fluids and she felt associated with unable to return home and was admitted into the hospital patient sodium level on admission 134 her potassium was 2.8, creatinine 1.03, UA with trace of bacteria and Covid negative. Today patient continues to complain of abdominal tenderness her nausea has improved and she is able to tolerate her liquid and now bland diabetic diet. The patient denies SOB, CP, palpitation, extremity numbness, lightheadedness, dizziness, constipation, diarrhea, chills, or fever. Patient noted that she used cannabis at least 2-3 times a week. This document was completed by using [employer] Direct speech recognition software, therefore sub plant manager variances may occur. Despite proofreading, typographical errors may also occur. [facility] Past Medical History Medical History (Updated 10/09/20 @ 12:46 by SATHYA Grant) Afib Arthritis Asthma COPD (chronic obstructive pulmonary disease) Depressed Emphysema/COPD GERD (gastroesophageal reflux disease) HTN (hypertension) Insomnia Sleep apnea T2DM (type 2 diabetes mellitus) Vision loss Weight gain Surgical History Surgical History Bunion removed H/O removal of cyst History of bilateral tubal ligation Family History Family History Father Family history of malignant neoplasm Leukemia Mother Family history of malignant neoplasm Pancreatic cancer Sibling Family history of malignant neoplasm Social History Social History Smoking status: Former smoker Tobacco type: cigarettes Second hand tobacco smoke exposure: No Smoking end date: 09/22/10 Alcohol intake: former Substance use: never Substance use type: does not use Gender identity (if verbalized by the patient): Female Sexual Orientation (if Verbalized by the Patient): Straight or Heterosexual Spiritual care concerns: No Agree to blood products: Yes Same Day Admit/Disch: Med Pre-admit Medications Home Medications Medication Instructions Recorded Confirmed Type duloxetine 30 mg capsule,delayed 30 mg PO DAILY 07/27/19 10/08/20 History release hydrochlorothiazide 25 mg tablet 25 mg PO DAILY 07/27/19 10/08/20 History lisinopril 40 mg tablet 40 mg PO DAILY 07/27/19 10/08/20 History montelukast 10 mg tablet 10 mg PO DAILY 07/27/19 10/08/20 History Eliquis 5 mg PO BID 01/26/20 10/08/20 History Vraylar 1.5 mg PO DAILY 01/26/20 10/08/20 History albuterol sulfate [ProAir HFA] 1 inh INHALATION QID PRN 01/26/20 10/08/20 History celecoxib [Celebrex] 200 mg PO DAILY 01/26/20 10/08/20 History diltiazem HCl 240 mg PO DAILY 01/26/20 10/08/20 History fluticasone propionate 1 inh INHALATION BID 01/26/20 10/08/20 History glimepiride 2 mg PO DAILY 01/26/20 10/08/20 History folic acid 1 mg PO DAILY 03/10/20 10/08/20 History vitamin B complex [B 2 tablet PO BID 03/10/20 10/08/20 History Complex-Vitamin B12] Austedo 12 mg PO BID 10/08/20 10/08/20 History metoclopramide HCl [Reglan] 5 mg PO DAILY 28 Days #28 tablet 10/09/20 Rx ondansetron HCl [Zofran] 4 mg PO Q8H PRN #30 tablet 10/09/20 Rx pantoprazole 20 mg PO QAM 28 Days #28 tablet 10/09/20 Rx potassium chloride 20 meq PO DAILY #4 tablet 10/09/20 Rx Exam Narrative: Exam Narrative: GENERAL: This is a well-nourished, well-developed patie
--- NOTE | 2020-10-12 11:27 | PC.NURSE ---
Unable to contact for discharge call back.
== END 2020-10-09 13:25 | disposition home or self-care (01) ==
LOC: CHSED 17:32 → CHS2ND 21:47
PROVIDERS: Admitting Provider Emergency Medicine; Emergency Provider Emergency Medicine; PCP Family Medicine; Visit Provider Emergency Medicine
DX: R10.11 Right upper quadrant pain (principal); K80.20 Calculus of gallbladder without cholecystitis without obstruction; E87.6 Hypokalemia; I48.20 Chronic atrial fibrillation, unspecified; J43.9 Emphysema, unspecified; E11.9 Type 2 diabetes mellitus without complications; I10 Essential (primary) hypertension; K21.9 Gastro-esophageal reflux disease without esophagitis; K42.9 Umbilical hernia without obstruction or gangrene; K76.0 Fatty (change of) liver, not elsewhere classified; M19.90 Unspecified osteoarthritis, unspecified site; G47.30 Sleep apnea, unspecified; G47.00 Insomnia, unspecified; E66.01 Morbid (severe) obesity due to excess calories; F12.90 Cannabis use, unspecified, uncomplicated; F32.9 Major depressive disorder, single episode, unspecified; Z20.822 Contact with and (suspected) exposure to COVID-19; Z87.891 Personal history of nicotine dependence
CPT/HCPCS: 36415; 71045; 74177; 80048; 80053; 81001; 83605; 83690; 83735; 84132; 85025; 87086; 87426; 93005; 96361; 96365; 96366; 96375; 96376; 99285; A9270; C9803; G0378; J1170; J1885; J2405; J2550; J7120; Q9967

== ENCOUNTER 2020-10-17 13:10 | Outpatient (CLI) | payer MEDICARE, SELFPAY ==
[2020-10-17 14:16] LABS: Potassium 3.6 mmol/L (3.5-5.1)
== END 2020-10-17 13:11 | disposition home or self-care (01) ==
PROVIDERS: PCP Family Medicine; Visit Provider Nurse Practitioner
DX: E87.6 Hypokalemia (principal)
CPT/HCPCS: 36415; 84132

== ENCOUNTER 2020-10-31 08:02 | Outpatient (CLI) | payer MEDICARE, MEDICAID, SELFPAY ==
--- NOTE | ~2020-10-31 | NM_ITS ---
HEPATOBILIARY SCAN Procedure: Hepatobiliary scan performed following IV administration 6 mCi Tc 99m Choletec. At 60 min utes 2.27 mcg CCK administered IV for evaluation of gallbladder ejection fraction. Indication:Right upper abdominal pain Comparison: CT dated 10/08/2020 Findings: There is normal radiotracer uptake in the liver parenchyma with prompt excretion into the b iliary tract. Gallbladder visualized at 15 minutes. Small bowel visualized at 60 minutes. Normal g allbladder ejection fraction measures 69% (normal 10-90%, but most patients with gallbladder dysfunct ion have GBEF of less than 35%) Impression: 1: Normal hepatobiliary scan. Reviewed, dictated and finalized at location B. 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
== END 2020-10-31 08:03 | disposition home or self-care (01) ==
PROVIDERS: PCP Family Medicine; Visit Provider Family Medicine
DX: R10.9 Unspecified abdominal pain (principal)
CPT/HCPCS: 78227; A9537; J2805

== ENCOUNTER 2020-11-14 09:53 | Emergency (ER) | payer MEDICARE, MEDICAID, SELFPAY ==
--- NOTE | ~2020-11-14 | CT_ITS ---
EXAMINATION: CT abdomen pelvis w con EXAM DATE: 11/14/2020 12:15 INDICATION: Abdominal pain N/V, fever, chills. TECHNIQUE: Spiral CT of the abdomen and pelvis was performed following intravenous injection of 100 m L Omnipaque 350. Axial, coronal and sagittal images were reviewed. The dose-length product (DLP) fo r this examination was 1479.65 mGy-cm. The exposure was tailored according to patient size (auto mA exposure control), and iterative reconstruction (ASIR) was used as additional dose reduction techniqu e. Comparison is made to prior examination from 10/08/2020. FINDINGS: The liver, spleen, adrenal glands and pancreas are unremarkable. Punctate cholelithiasis. Gallbladder otherwise unremarkable. Portal and splenic veins are patent. Kidneys enhance symmetrica lly. There is no hydronephrosis. The uterus is unremarkable. The bladder is unremarkable. There is no retroperitoneal or pelvic lymphadenopathy. There is mild scattered arteriosclerotic disease. There are no findings to suggest appendicitis. The stomach and small bowel are unremarkable. There is expected amount of colonic stool. No free intraperitoneal gas. The heart is normal in size. T here are no pericardial or pleural effusions. The lung bases are unremarkable. There are no osteobl astic or osteolytic lesions identified. There is mild to moderate lumbar levoscoliosis. IMPRESSION: 1. No acute intra-abdominal findings. Reviewed, dictated and finalized at location B. 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
[2020-11-14 10:10] VITALS: BP 182/100; PULSE 64; RESP 20; TEMP 36.8; O2SAT 92
[2020-11-14 10:43] LABS: Basophils Absolute Auto 0.11 K/mm3 (0.00-0.10); Basophils Percent Auto 0.7 % (0.0-1.0); Eosinophils Absolute Auto 0.22 K/mm3 (0.02-0.50); Eosinophils Percent Auto 1.4 % (1.0-6.0); Hematocrit 46.1 % (35.0-42.0); Hemoglobin 15.3 g/dL (11.7-13.8); Immature Granulocyte Absolute 0.08 K/mm3 (0.00-0.00); Immature Granulocyte Percent A 0.5 % (0.0-0.0); Lymphocytes Absolute Auto 1.53 K/mm3 (1.10-4.50); Mean Corpuscular HGB Conc 33.2 g/dL (32.0-36.0); Mean Corpuscular Hemoglobin 30.2 pg (27.0-31.0); Mean Corpuscular Volume 91.1 fL (78.0-102.0); Mean Platelet Volume 10.7 fl (9.2-11.8); Monocytes Absolute Auto 0.68 K/mm3 (0.10-0.90); Monocytes Percent Auto 4.4 % (2.0-11.0); Neutrophils Absolute Auto 12.7 K/mm3 (1.7-7.2); Platelet Count Result 297 K/mm3 (150-420); Red Blood Count 5.06 M/mm3 (4.20-5.40); Red Cell Distribution Width 13.6 % (11.6-14.4); White Blood Count 15.3 K/mm3 (4.8-10.8)
[2020-11-14 10:44] LABS: Add Urine Microscopic? YES; Appearance Urine Sl Cloudy (Clear); Bilirubin Urine Negative (Negative); Blood Urine Negative (Negative); Color Urine Yellow (Yellow); Glucose Urine UA Trace (Negative); Ketones Urine 1+ (Negative); Leukocyte Esterase Ur Negative LEU/UL (Negative); Nitrate Urine Negative (Negative); Protein Urine 1+ (Negative); Specific Grav Ur >= 1.030 (1.010-1.020); Urobilinogen Urine 0.2 mg/dL (0.2-1.0)
--- NOTE | 2020-11-14 10:48 | ED.ABDPAIN ---
HPI - Abdominal Pain General Chief Complaint: Abdominal Pain Stated Complaint: nausea/dont feel well Time Seen by Provider: 11/14/20 10:40 Source: patient Mode of arrival: ambulatory Limitations: no limitations History of Present Illness HPI narrative: Patient comes in complaining of nausea and not feeling well. This has been developing over a period of a few days and seems to be getting worse. She has had no appetite, but denies fevers or chills. She is a poor historian. Onset (ago): day(s) Associated symptoms: nausea, vomiting, anorexia and other (fatigue) Treatments prior to arrival: NSAIDs Related Data Home Medications Medication Instructions Recorded Confirmed duloxetine 30 mg capsule,delayed 30 mg PO DAILY 07/27/19 11/14/20 release hydrochlorothiazide 25 mg tablet 25 mg PO DAILY 07/27/19 11/14/20 lisinopril 40 mg tablet 40 mg PO DAILY 07/27/19 11/14/20 montelukast 10 mg tablet 10 mg PO DAILY 07/27/19 11/14/20 Eliquis 5 mg PO BID 01/26/20 11/14/20 Vraylar 1.5 mg PO DAILY 01/26/20 11/14/20 albuterol sulfate [ProAir HFA] 1 inh INHALATION QID PRN 01/26/20 11/14/20 celecoxib [Celebrex] 200 mg PO DAILY 01/26/20 11/14/20 diltiazem HCl 240 mg PO DAILY 01/26/20 11/14/20 fluticasone propionate 1 inh INHALATION BID 01/26/20 11/14/20 glimepiride 2 mg PO DAILY 01/26/20 11/14/20 folic acid 1 mg PO DAILY 03/10/20 11/14/20 vitamin B complex [B 2 tablet PO BID 03/10/20 11/14/20 Complex-Vitamin B12] Austedo 12 mg PO BID 10/08/20 11/14/20 Allergies Allergy/AdvReac Type Severity Reaction Status Date / Time codeine AdvReac Unknown sick to Verified 02/18/20 09:26 stomach Review of Systems Constitutional: Constitutional: Reports no additional constitutional complaints Eyes: Eyes: Reports no additional eye complaints ENT: Reports system reviewed and no additional complaints, except as documented Cardiovascular: Cardiovascular: Reports no additional cardiovascular complaints Respiratory: Respiratory: Reports no additional respiratory complaints Gastrointestinal: Gastrointestinal: Reports abdominal pain and Reports heartburn Genitourinary: Genitourinary: Reports no additional female genitourinary complaints Musculoskeletal: Musculoskeletal: Reports no additional musculoskeletal complaints Integumentary/Breasts: Skin/Breast: Reports system reviewed and no additional complaints, except as docu Neurologic: Reports system reviewed and no additional complaints, except as documented Psychiatric: Psychiatric: Reports no additional psychiatric complaints Endocrine: Endocrine: Reports no additional endocrine complaints Hematologic/Lymphatic: Hematologic/Lymphatic: Reports no additional hematologic/lymphatic complaints Allergic/Immunologic: Allergic/Immunologic: Reports no additional allergic/immunologic complaints PMFSH Past Medical History Medical History Afib Arthritis Asthma COPD (chronic obstructive pulmonary disease) Depressed Emphysema/COPD GERD (gastroesophageal reflux disease) HTN (hypertension) Insomnia Sleep apnea T2DM (type 2 diabetes mellitus) Vision loss Weight gain Surgical History Surgical History Bunion removed H/O removal of cyst History of bilateral tubal ligation Family History Family History Father Family history of malignant neoplasm Leukemia Mother Family history of malignant neoplasm Pancreatic cancer Sibling Family history of malignant neoplasm Social History Social History Smoking status: Former smoker Tobacco type: cigarettes Second hand tobacco smoke exposure: No Smoking end date: 09/22/10 Alcohol intake: former Substance use: never Substance use type: does not use Gender identity (if verbalized by the patient): Female Spiritual care concerns: No Agr
[2020-11-14 10:50] LABS: Amorphous Sediment Urine Heavy; Bacteria Urine 2+ /hpf; Mucus Urine Heavy /lpf; RBC Urine 0-2 /hpf (0-2); Squamous Epithelial Cell Urine Few /hpf (Few); WBC Urine 0-3 /hpf (0-3)
[2020-11-14 11:00] LABS: Alanine Aminotransferase 24 U/L (14-59); Albumin Level 3.9 g/dL (3.4-5.0); Alkaline Phosphatase 108 U/L (46-116); Amylase 42 U/L (25-115); Anion Gap 11 mmol/L (8-16); Aspartate Amino Transferase 16 U/L (15-37); Bilirubin,Total 0.6 mg/dL (0.00-1.00); Blood Urea Nitrogen 10 mg/dL (7-18); Calcium 8.9 mg/dL (8.5-10.1); Carbon Dioxide 28 mmol/L (21-32); Chloride 104 mmol/L (98-108); Estimated Glomerular Filt Rate 60; Glucose 231 mg/dL (70-99); Lipase 95 U/L (73-393); Osmolality Calculated 302 mOsm/kg (285-295); Potassium 3.6 mmol/L (3.5-5.1); Sodium 143 mmol/L (136-145); Total Protein 7.4 g/dL (6.4-8.2)
[2020-11-14] MEDS: ONDANSETRON INJ 4 MG/2 ML VIAL IV PUSH ×2 (11:03→15:25)
[2020-11-14] MEDS: METOCLOPRAMIDE HCL INJ 10 MG/2 ML VIAL IV PUSH (11:25)
[2020-11-14] MEDS: PANTOPRAZOLE SODIUM IV 40 MG VIAL IV PUSH (11:25)
--- NOTE | 2020-11-14 12:11 | PC.NURSE ---
pt to xray for ct scan.
--- NOTE | 2020-11-14 12:12 | PC.NURSE ---
pt returns from ct.
--- NOTE | 2020-11-14 12:59 | PC.NURSE ---
report to [facility]
[2020-11-14] MEDS: MAG HYDROX/ALUMINUM HYD/SIMETH 30 ML, PHENobarb/HYOSCY/ATROPINE/SCOP 32.4 MG, LIDOCAINE... PO (14:27)
[2020-11-14] MEDS: DICYCLOMINE HCL 10 MG CAPSULE 20 MG PO (14:27)
--- NOTE | 2020-11-14 14:42 | PC.NURSE ---
REPORT PROVIDED TO ONCOMING RN BINH Jack
[2020-11-14 15:00] VITALS: BP 160/88; PULSE 70; RESP 18; O2SAT 99
[2020-11-14] MEDS: SODIUM CHLORIDE 0.9% IV 100 ML (15:24)
[2020-11-14] MEDS: cefTRIAXone 1 GM VIAL IM (15:25)
--- NOTE | 2020-11-14 15:26 | PC.NURSE ---
rocephin 1gm IV given started at 1500, done 1530
[2020-11-14 15:52] VITALS: BP 160/72; PULSE 89; RESP 19; TEMP 36.6; O2SAT 98
== END 2020-11-14 15:59 | disposition home or self-care (01) ==
PROVIDERS: Emergency Provider Emergency Medicine; PCP Family Medicine
DX: N12 Tubulo-interstitial nephritis, not specified as acute or chronic (principal); I48.20 Chronic atrial fibrillation, unspecified; I10 Essential (primary) hypertension; J43.9 Emphysema, unspecified; J45.909 Unspecified asthma, uncomplicated; E11.9 Type 2 diabetes mellitus without complications; K21.9 Gastro-esophageal reflux disease without esophagitis; G47.00 Insomnia, unspecified; G47.30 Sleep apnea, unspecified; R63.5 Abnormal weight gain; F32.9 Major depressive disorder, single episode, unspecified; Z87.891 Personal history of nicotine dependence; Z79.02 Long term (current) use of antithrombotics/antiplatelets
CPT/HCPCS: 36415; 74177; 80053; 81001; 82150; 83690; 83735; 85025; 87086; 87088; 96372; 96374; 96375; 96376; 99283; 99284; A9270; C9113; J0696; J2405; J2765; Q9967

== ENCOUNTER 2020-12-20 16:46 | Outpatient (CLI) | payer MEDICARE, MEDICAID, SELFPAY ==
--- NOTE | ~2020-12-20 | XR_ITS ---
EXAMINATION: XR chest 2V DATE: 12/20/2020 17:27 INDICATION: Cough. Shortness of breath. TECHNIQUE: Frontal and lateral views of the chest were obtained. COMPARISON: Chest single view 10/08/2020, CT abdomen and pelvis 11/14/2020 FINDINGS: There is mild atelectasis in left lower lung zone. No pleural effusion or pneumothorax. The heart size is normal. IMPRESSION: 1. Mild atelectasis in left lower lung zone. 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
[2020-12-20 17:04] LABS: Basophils Percent Auto 0.6 % (0.0-1.0); Eosinophils Absolute Auto 0.51 K/mm3 (0.02-0.50); Eosinophils Percent Auto 3.3 % (1.0-6.0); Hematocrit 42.7 % (35.0-42.0); Hemoglobin 14.3 g/dL (11.7-13.8); Immature Granulocyte Absolute 0.07 K/mm3 (0.00-0.00); Immature Granulocyte Percent A 0.4 % (0.0-0.0); Lymphocytes Absolute Auto 2.68 K/mm3 (1.10-4.50); Lymphocytes Percent Auto 17.2 % (18.0-42.0); Mean Corpuscular HGB Conc 33.5 g/dL (32.0-36.0); Mean Corpuscular Hemoglobin 30.4 pg (27.0-31.0); Mean Corpuscular Volume 90.9 fL (78.0-102.0); Mean Platelet Volume 10.1 fl (9.2-11.8); Monocytes Absolute Auto 1.03 K/mm3 (0.10-0.90); Monocytes Percent Auto 6.6 % (2.0-11.0); Neutrophils Absolute Auto 11.2 K/mm3 (1.7-7.2); Neutrophils Percent Auto 71.9 % (50.0-70.0); Platelet Count Result 283 K/mm3 (150-420); Red Cell Distribution Width 13.6 % (11.6-14.4); White Blood Count 15.6 K/mm3 (4.8-10.8)
[2020-12-20 17:11] LABS: Add Urine Microscopic? NO; Appearance Urine Clear (Clear); Bilirubin Urine Negative (Negative); Blood Urine Negative (Negative); Color Urine Yellow (Yellow); Glucose Urine UA Negative (Negative); Ketones Urine Negative (Negative); Leukocyte Esterase Ur Negative LEU/UL (Negative); Nitrate Urine Negative (Negative); Protein Urine Negative (Negative); Urobilinogen Urine 0.2 mg/dL (0.2-1.0)
[2020-12-20 17:19] LABS: Hemoglobin A1C 6.7 % (<5.7)
[2020-12-20 17:30] LABS: Alanine Aminotransferase 18 U/L (14-59); Albumin Level 3.4 g/dL (3.4-5.0); Alkaline Phosphatase 105 U/L (46-116); Amylase 41 U/L (25-115); Anion Gap 6 mmol/L (8-16); Aspartate Amino Transferase 30 U/L (15-37); Bilirubin,Total 0.6 mg/dL (0.00-1.00); Blood Urea Nitrogen 13 mg/dL (7-18); Calcium 8.8 mg/dL (8.5-10.1); Carbon Dioxide 33 mmol/L (21-32); Chloride 100 mmol/L (98-108); Creatine Kinase 99 U/L (26-192); Estimated Glomerular Filt Rate 56; Glucose 140 mg/dL (70-99); Lipase 152 U/L (73-393); Osmolality Calculated 290 mOsm/kg (285-295); Sodium 139 mmol/L (136-145)
[2020-12-20 17:46] LABS: Creatine Kinase MB < 0.50 ng/mL (0.00-5.00); Potassium 3.3 mmol/L (3.5-5.1)
== END 2020-12-20 16:47 | disposition home or self-care (01) ==
LOC: CHSLAB 16:51
PROVIDERS: PCP Family Medicine; Visit Provider Family Medicine
DX: R07.89 Other chest pain (principal); R10.84 Generalized abdominal pain; E11.9 Type 2 diabetes mellitus without complications; R05 Cough; E87.6 Hypokalemia; Z20.822 Contact with and (suspected) exposure to COVID-19
CPT/HCPCS: 36415; 71046; 80053; 81003; 82150; 82550; 82553; 83036; 83690; 83735; 84484; 85025; 86769

== ENCOUNTER 2021-01-01 13:44 | Outpatient (CLI) | payer MEDICARE, SELFPAY ==
[2021-01-01 15:07] LABS: Anion Gap 8 mmol/L (8-16); Blood Urea Nitrogen 8 mg/dL (7-18); Calcium 8.9 mg/dL (8.5-10.1); Carbon Dioxide 30 mmol/L (21-32); Chloride 103 mmol/L (98-108); Estimated Glomerular Filt Rate > 60; Glucose 137 mg/dL (70-99); Osmolality Calculated 292 mOsm/kg (285-295); Potassium 3.2 mmol/L (3.5-5.1); Sodium 141 mmol/L (136-145)
== END 2021-01-01 13:45 | disposition home or self-care (01) ==
LOC: CHSLAB 13:46
PROVIDERS: PCP Family Medicine; Visit Provider Family Medicine
DX: E87.6 Hypokalemia (principal)
CPT/HCPCS: 36415; 80048

== ENCOUNTER 2021-01-04 14:14 | Outpatient (CLI) | payer MEDICARE, MEDICAID, SELFPAY ==
--- NOTE | ~2021-01-04 | XR_ITS ---
XR lumbar spine 2-3V DATE: 01/04/2021 14:59 INDICATION: Neck, back, low back pain. No injury. TECHNIQUE: AP, lateral and coned lateral lumbosacral views COMPARISON: 06/15/2015 lumbar spine FINDINGS: There is mild rotatory levoscoliosis of the lumbar spine. Diffuse osteopenia. Normal alignment of the lumbar spine. No fracture or bone destruction, spondylolisthesis. The lumbar pedicles are intact. There is mild degenerative disc disease at the upper and mid lumbar spine primarily The sacroiliac joints are intact. IMPRESSION: Diffuse osteopenia Mild rotatory levoscoliosis Mild degenerative disc disease Reviewed, dictated and finalized at location A.
--- NOTE | ~2021-01-04 | XR_ITS ---
XR_CERV2-3V_CR DATE: 01/04/2021 14:59 INDICATION: Neck pain TECHNIQUE: AP, open-mouth, lateral views COMPARISON: None FINDINGS: There is mild reversal cervical curvature. There is mild anterolisthesis at C2-3, C3-4 and C4-5. Mild degenerative disease at C3-4 and C4-5. Moderately severe degenerative disease at C5-6 Severe degenerative disc disease at C6-7. There is prominent uncovertebral joint spurring at C5-6, particularly on the right and at C6-7, parti cularly on the left. There is degenerative change at the apophyseal joints. C1 and C2 are normally aligned and the odontoid process is intact. No fracture or dislocation or lock ed facet or prevertebral soft tissue swelling. Diffuse osteopenia. IMPRESSION: Reversal of cervical curvature Extensive degenerative changes, most pronounced at C5-6 and C6-7 Mild anterolisthesis at C2-3, C3-4 and C4-5 Reviewed, dictated and finalized at Location A. 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
--- NOTE | ~2021-01-04 | XR_ITS ---
XR thoracic spine 2V DATE: 01/04/2021 14:59 INDICATION: Back pain. No known injury. TECHNIQUE: AP, lateral, swimmer views COMPARISON: None FINDINGS: Diffuse osteopenia. There is moderate dextro scoliosis of the thoracolumbar spine. There are degenerative changes involving particularly the mid and lower cervical spine including disc space narrowing and degenerative spurring at multiple levels, as well as some prominent eburnation o n the left at T11. The thoracic pedicles are intact. No fracture or dislocation or bone destruction or abnormal paraspinal soft tissue thickening is evide nt. IMPRESSION: Diffuse osteopenia Dextroscoliosis Degenerative changes involving particularly the mid and lower thoracic spine Reviewed, dictated and finalized at location A.
== END 2021-01-04 14:15 | disposition home or self-care (01) ==
LOC: CHSIMG 14:16
PROVIDERS: PCP Family Medicine; Visit Provider Family Medicine
DX: M54.2 Cervicalgia (principal); M54.6 Pain in thoracic spine; M54.5 Low back pain; M85.88 Other specified disorders of bone density and structure, other site; M47.812 Spondylosis without myelopathy or radiculopathy, cervical region; M47.814 Spondylosis without myelopathy or radiculopathy, thoracic region; M47.816 Spondylosis without myelopathy or radiculopathy, lumbar region
CPT/HCPCS: 72040; 72070; 72100

== ENCOUNTER 2021-01-10 08:24 | Outpatient (CLI) | payer MEDICARE, MEDICAID, SELFPAY ==
--- NOTE | ~2021-01-10 | MR_ITS ---
EXAMINATION: MR thoracic spine wo con DATE: 01/10/2021 10:42 INDICATION: Back pain. TECHNIQUE: Magnetic resonance imaging (MRI) of the thoracic spine was performed without intravenous c ontrast. Sagittal localizer T1-weighted FSE of the cervical spine was obtained. Thoracic spine sequen rosalie included sagittal T2-weighted FSE, sagittal T1-weighted FSE, sagittal T2-weighted FS FSE, and axi al T2-weighted FSE. COMPARISON: Thoracic spine radiographs 01/04/2021 FINDINGS: There is 7 degrees dextrocurvature of the thoracic spine and 7 degrees levocurvature of low er thoracic spine. There is mild chronic anterior wedging of T5 and T6 vertebral bodies. There is dec reased disc height at most levels, severe at T7-T8, T9-T10, and T10-T11. There is multilevel facet madi int osteoarthritis, severe at many levels. On the right, there is mild neural foraminal stenosis at T 1-T2, T3-T4, T4-T5, T5-T6, T7-T8 and moderate neural foraminal stenosis at T8-T9 and T9-T10. On the l eft, there is mild neural foraminal stenosis at T8-T9 and T9-T10 and moderate neural foraminal stenos is at T10-T11. The discs are bulging from T7-T8 through T12-L1 with mild central canal stenosis. The spinal cord signal intensity is normal. IMPRESSION: 1. Severe thoracic spondylosis. Reviewed, dictated and finalized at location B.
== END 2021-01-10 08:25 | disposition home or self-care (01) ==
PROVIDERS: PCP Family Medicine; Visit Provider Family Medicine
DX: M54.5 Low back pain (principal); M54.2 Cervicalgia
CPT/HCPCS: 72146

== ENCOUNTER 2021-01-27 08:18 | Outpatient (CLI) | payer MEDICARE, MEDICAID, SELFPAY ==
--- NOTE | ~2021-01-27 | MR_ITS ---
EXAMINATION: MR cervical spine wo con DATE: 01/27/2021 10:08 INDICATION: Neck pain. TECHNIQUE: Magnetic resonance imaging (MRI) of the cervical spine was performed without intravenous c ontrast. Sequences included sagittal T2-weighted FSE, sagittal T2-weighted FS FSE, sagittal T1-weight ed FSE, axial MERGE, and axial T2-weighted FSE. COMPARISON: Cervical spine MRI 05/31/10 FINDINGS: There is mild kyphosis of cervical spine. There is 2 mm anterolisthesis of C3 on C4 and C4 on C5. Vertebral body heights are normal. There is mildly decreased disc height at C3-C4 and C4-C5 an d severely decreased disc height at C5-C6 and C6-C7. The spinal cord signal intensity is normal. The following disc levels are specifically discussed: C2-C3: The disc does not extend beyond the endplate margin. There is no uncovertebral joint osteoarth ritis. There is severe bilateral facet joint osteoarthritis. There is mild right neural foraminal ayah nosis. There is no central canal stenosis. C3-C4: The disc is bulging. There is moderate bilateral uncovertebral joint osteoarthritis. There is severe bilateral facet joint osteoarthritis. There is mild bilateral neural foraminal stenosis. There is mild central canal stenosis. C4-C5: The disc is bulging. There is mild right and severe left uncovertebral joint osteoarthritis. T here is severe bilateral facet joint osteoarthritis. There is mild bilateral neural foraminal stenosi s. There is mild central canal stenosis with ventral indentation of the spinal cord. C5-C6: The disc is bulging. There is severe bilateral uncovertebral joint osteoarthritis. There is se khushi bilateral facet joint osteoarthritis. There is mild bilateral neural foraminal stenosis. There i s mild central canal stenosis. C6-C7: The disc is bulging. There is severe bilateral uncovertebral joint osteoarthritis. There is no facet joint osteoarthritis. There is mild bilateral neural foraminal stenosis. There is mild central canal stenosis. C7-T1: The disc does not extend beyond the endplate margin. There is no uncovertebral joint osteoarth ritis. There is severe right and mild left facet joint osteoarthritis. There is mild right neural for aminal stenosis. There is no central canal stenosis. IMPRESSION: 1. Severe cervical spondylosis, worsened from 05/31/2010. 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
== END 2021-01-27 08:19 | disposition home or self-care (01) ==
LOC: CHSIMG 08:21
PROVIDERS: PCP Family Medicine; Visit Provider Family Medicine
DX: M54.5 Low back pain (principal); M54.2 Cervicalgia
CPT/HCPCS: 72141

== ENCOUNTER 2021-04-06 14:33 | Outpatient (CLI) | payer MEDICARE, MEDICAID, SELFPAY ==
--- NOTE | ~2021-04-06 | XR_ITS ---
XR chest 2V DATE: 04/06/2021 14:49 INDICATION: Shortness of breath TECHNIQUE: PA and lateral views COMPARISON: 12/20/2020 PA and lateral chest FINDINGS: Cardiomegaly Aortic ectasia and unfolding. No pulmonary infiltrate or consolidation, pulmonary vascular congestion or pleural effusion or pneumo thorax. Osteopenia. IMPRESSION: Cardiomegaly No active pulmonary disease Reviewed, dictated and finalized at location B.
== END 2021-04-06 14:34 | disposition home or self-care (01) ==
LOC: CHSIMG 14:36
PROVIDERS: PCP Family Medicine; Visit Provider Family Medicine
DX: R06.02 Shortness of breath (principal)
CPT/HCPCS: 71046

== ENCOUNTER 2021-04-23 13:18 | Outpatient (CLI) | payer MEDICARE, SELFPAY ==
[2021-04-23 14:00] LABS: Add Urine Microscopic? YES; Appearance Urine Clear (Clear); Bilirubin Urine Negative (Negative); Blood Urine Negative (Negative); Color Urine Light Yellow (Yellow); Glucose Urine UA Negative (Negative); Ketones Urine Negative (Negative); Leukocyte Esterase Ur 1+ (Negative); Nitrate Urine Negative (Negative); Protein Urine Negative (Negative); Specific Grav Ur <= 1.005 (1.010-1.020); Urobilinogen Urine 0.2 mg/dL (0.2-1.0)
[2021-04-23 14:10] LABS: RBC Urine None seen /hpf (0-2); Squamous Epithelial Cell Urine Few /hpf (Few); WBC Urine 16-20 /hpf (0-3)
[2021-04-23 14:11] LABS: Bacteria Urine Trace /hpf
== END 2021-04-23 13:19 | disposition home or self-care (01) ==
PROVIDERS: PCP Family Medicine; Visit Provider Family Medicine
DX: D72.829 Elevated white blood cell count, unspecified (principal); R10.84 Generalized abdominal pain
CPT/HCPCS: 81001; 87086

== ENCOUNTER 2021-04-25 08:42 | Outpatient (CLI) | payer MEDICARE, SELFPAY ==
[2021-04-25 08:53] LABS: Basophils Absolute Auto 0.09 K/mm3 (0.00-0.10); Basophils Percent Auto 0.7 % (0.0-1.0); Eosinophils Absolute Auto 0.48 K/mm3 (0.02-0.50); Eosinophils Percent Auto 3.8 % (1.0-6.0); Hematocrit 46.4 % (35.0-42.0); Immature Granulocyte Absolute 0.06 K/mm3 (0.00-0.00); Immature Granulocyte Percent A 0.5 % (0.0-0.0); Lymphocytes Absolute Auto 2.75 K/mm3 (1.10-4.50); Lymphocytes Percent Auto 21.9 % (18.0-42.0); Mean Corpuscular HGB Conc 32.3 g/dL (32.0-36.0); Mean Corpuscular Hemoglobin 29.9 pg (27.0-31.0); Mean Corpuscular Volume 92.4 fL (78.0-102.0); Mean Platelet Volume 10.1 fl (9.2-11.8); Monocytes Absolute Auto 1.01 K/mm3 (0.10-0.90); Monocytes Percent Auto 8.1 % (2.0-11.0); Neutrophils Absolute Auto 8.1 K/mm3 (1.7-7.2); Platelet Count Result 335 K/mm3 (150-420); Red Blood Count 5.02 M/mm3 (4.20-5.40); Red Cell Distribution Width 15.3 % (11.6-14.4); White Blood Count 12.5 K/mm3 (4.8-10.8)
[2021-04-25 09:44] LABS: Anion Gap 10 mmol/L (8-16); Blood Urea Nitrogen 12 mg/dL (7-18); Calcium 8.6 mg/dL (8.5-10.1); Carbon Dioxide 28 mmol/L (21-32); Chloride 107 mmol/L (98-108); Estimated Glomerular Filt Rate > 60; Glucose 176 mg/dL (70-99); Osmolality Calculated 303 mOsm/kg (285-295); Potassium 3.4 mmol/L (3.5-5.1); Sodium 145 mmol/L (136-145)
== END 2021-04-25 08:43 | disposition home or self-care (01) ==
LOC: CHSLAB 08:44
PROVIDERS: PCP Family Medicine; Visit Provider Family Medicine
DX: D72.829 Elevated white blood cell count, unspecified (principal); R79.89 Other specified abnormal findings of blood chemistry
CPT/HCPCS: 36415; 80048; 85025

== ENCOUNTER 2021-05-03 14:12 | Outpatient (CLI) | payer MEDICARE, MEDICAID, SELFPAY | END 2021-05-03 14:13 | disposition home or self-care (01) | PROVIDERS: PCP Family Medicine; Visit Provider Family Medicine | DX: I48.91 Unspecified atrial fibrillation (principal) | CPT/HCPCS: 99199 ==

== ENCOUNTER 2021-05-24 14:17 | Outpatient (CLI) | payer MEDICARE, MEDICAID, SELFPAY ==
--- NOTE | 2021-05-24 15:24 | ECHO_ITS ---
Patient Info Name: Yulia Gaston Age: 65 years : 1955 Gender: Female Ht: 66 in Wt: 245 lbs BSA: 2.33 m2 HR: 73 bpm BP: 176 / 104 mmHg Technical Quality: Fair Exam Date: 05/24/2021 2:19 PM Exam Location: [facility] EM[facility] Patient Status: Outpatient Admit Date: 05/24/2021 Staff Ordering Physician: Fritz Reyes MD Adding Machine Operator: Handy Mon, ANILA, RT Attending Provider: Fritz Reyes MD Referring Physician: Eric SALDIVAR; Exam Type: CA echo doppler color flow Study Info Indications I48.1 - Persistent atrial fibrillation Complete two-dimensional, color flow and Doppler transthoracic echocardiogram is performed. Summary 1. Complete two-dimensional, color flow and Doppler transthoracic echocardiogram is performed. 2. Left ventricular chamber dimension is normal. 3. Left ventricular systolic function is normal, estimated at 55-60%. 4. There is mildly increased left ventricular wall thickness. 5. The left ventricular diastolic function is grade I diastolic dysfunction. 6. E/e' 14 is mildly elevated. 7. Left atrial chamber dimension is mildly enlarged. 8. Right atrial chamber dimension is mildly enlarged. 9. The mitral valve has mildly calcified annulus. Left Ventricle E/e' 14 is mildly elevated. Left ventricular chamber dimension is normal. Left ventricular systolic function is normal, estimated at 55-60%. There is mildly increased left ventricular wall thickness. The left ventricular diastolic function is grade I diastolic dysfunction. Right Ventricle Right ventricular chamber dimension is normal. Right ventricular systolic function is normal. Left Atria Left atrial chamber dimension is mildly enlarged. Right Atria Right atrial chamber dimension is mildly enlarged. Aortic Valve The aortic valve is trileaflet. There is no aortic valve stenosis. There is no aortic valve regurgitation. Pulmonic Valve There is no pulmonic regurgitation. Mitral Valve The mitral valve has mildly calcified annulus. There is no mitral valve stenosis. There is no mitral valve regurgitation. Tricuspid Valve There is no tricuspid valve regurgitation. Pericardium/Pleural There is no pericardial effusion. Inferior Vena Cava Normal inferior vena cava with >50% collapse upon inspiration consistent with normal right atrial pressure, 5 mmHg. Aorta The aortic root size at the sinus of Valsalva is normal. Left Ventricular Outflow Tract Name Value Normal LVOT 2D LVOT Diameter 2.2 cm LVOT Doppler LVOT Peak Velocity 80 cm/s LVOT Peak Gradient 3 mmHg LVOT Mean Gradient 1 mmHg LVOT VTI 17 cm LVOT VTI/AV VTI Ratio 0.7 LVOT Stroke Volume 66 ml Mitral Valve Name Value Normal MV Doppler
--- NOTE | 2021-05-24 15:25 | PCCARD ---
Question apical echogenicity on echo. Pt refused Definity. Dr. Taveras notified. Rafa.
== END 2021-05-24 14:18 | disposition home or self-care (01) ==
LOC: CHSIMG 14:19
PROVIDERS: PCP Family Medicine; Visit Provider Family Medicine
DX: I48.91 Unspecified atrial fibrillation (principal)
CPT/HCPCS: 93306

== ENCOUNTER 2021-07-19 15:13 | Outpatient (CLI) | payer MEDICARE, MEDICAID, SELFPAY ==
--- NOTE | ~2021-07-19 | XR_ITS ---
XR lumbar spine 2-3V 07/19/2021 16:09 Indication: Low back pain Procedure: 3 views lumbar spine Comparison: 01/04/2021 Findings: There is mild levoscoliosis of the lumbar spine. Vertebral body heights are maintained. The re is mild lower lumbar facet hypertrophy. There is disc narrowing at L5-S1. No acute fracture or tra umatic malalignment. Pedicles are intact. Impression: 1: Mild lumbar spondylosis with levoscoliosis. 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 Impression: 1: Mild lumbar spondylosis with levoscoliosis.
--- NOTE | ~2021-07-19 | XR_ITS ---
EXAMINATION: XR hip RT min 2V EXAM DATE: 07/19/2021 16:08 INDICATION: RT hip/ low back pain x 1 wk no injury. TECHNIQUE: Right hip frontal, 'frog leg' projections for interpretation. There is no prior study for comparison. FINDINGS: Smooth right hip femoral head contour, no radiographic evidence of avascular necrosis. The re is mild right hip primary osteoarthritis. There are no acute fractures or dislocations identified. There is no subcutaneous gas. The soft tissue is unremarkable. There are no radiopaque foreign b odies. IMPRESSION: Mild right hip osteoarthritis. Reviewed, dictated and finalized at location B.
--- NOTE | ~2021-07-19 | XR_ITS ---
EXAMINATION: XR knee RT 3V DATE: 07/19/2021 16:09 INDICATION: Right knee pain. TECHNIQUE: 3 views of right knee on 4 radiographs were obtained. COMPARISON: Right knee radiographs 04/15/2020, MRI 08/09/2018 FINDINGS: Bone alignment is normal. No fracture. There is severe osteoarthritis of medial and patello femoral compartments and mild osteoarthritis of lateral compartment. No knee joint effusion. IMPRESSION: 1. Severe right knee osteoarthritis. 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
[2021-07-19 15:37] LABS: Basophils Absolute Auto 0.11 K/mm3 (0.00-0.10); Basophils Percent Auto 0.8 % (0.0-1.0); Eosinophils Absolute Auto 0.36 K/mm3 (0.02-0.50); Eosinophils Percent Auto 2.7 % (1.0-6.0); Immature Granulocyte Absolute 0.06 K/mm3 (0.00-0.00); Immature Granulocyte Percent A 0.5 % (0.0-0.0); Lymphocytes Absolute Auto 2.57 K/mm3 (1.10-4.50); Lymphocytes Percent Auto 19.5 % (18.0-42.0); Mean Corpuscular HGB Conc 32.7 g/dL (32.0-36.0); Mean Corpuscular Hemoglobin 30.1 pg (27.0-31.0); Mean Corpuscular Volume 92.3 fL (78.0-102.0); Mean Platelet Volume 9.8 fl (9.2-11.8); Monocytes Absolute Auto 0.89 K/mm3 (0.10-0.90); Monocytes Percent Auto 6.7 % (2.0-11.0); Neutrophils Absolute Auto 9.2 K/mm3 (1.7-7.2); Neutrophils Percent Auto 69.8 % (50.0-70.0); Platelet Count Result 343 K/mm3 (150-420); Red Blood Count 5.31 M/mm3 (4.20-5.40); Red Cell Distribution Width 15.9 % (11.6-14.4); White Blood Count 13.2 K/mm3 (4.8-10.8)
[2021-07-19 16:02] LABS: D Dimer 0.37 mg/L (0.19-0.50)
[2021-07-19 16:05] LABS: Hemoglobin A1C 6.5 % (<5.7)
[2021-07-19 16:09] LABS: Alanine Aminotransferase 29 U/L (14-59); Albumin Level 3.6 g/dL (3.4-5.0); Alkaline Phosphatase 107 U/L (46-116); Anion Gap 10 mmol/L (8-16); Aspartate Amino Transferase 17 U/L (15-37); Bilirubin,Total 0.4 mg/dL (0.00-1.00); Blood Urea Nitrogen 13 mg/dL (7-18); Calcium 8.7 mg/dL (8.5-10.1); Carbon Dioxide 29 mmol/L (21-32); Chloride 103 mmol/L (98-108); Estimated Glomerular Filt Rate > 60; Glucose 121 mg/dL (70-99); Osmolality Calculated 295 mOsm/kg (285-295); Potassium 3.9 mmol/L (3.5-5.1); Sodium 142 mmol/L (136-145); Total Protein 6.5 g/dL (6.4-8.2)
== END 2021-07-19 15:14 | disposition home or self-care (01) ==
LOC: CHSLAB 15:15
PROVIDERS: PCP Family Medicine; Visit Provider Family Medicine
DX: M79.604 Pain in right leg (principal); E11.9 Type 2 diabetes mellitus without complications; I10 Essential (primary) hypertension; M54.9 Dorsalgia, unspecified
CPT/HCPCS: 36415; 72100; 73502; 73562; 80053; 83036; 85025; 85380

== ENCOUNTER 2021-11-29 09:41 | Emergency (ER) | payer MEDICARE, MEDICAID, SELFPAY ==
--- NOTE | ~2021-11-29 | XR_ITS ---
EXAMINATION: XR knee LT 2V DATE: 11/29/2021 10:50 INDICATION: Left knee injury. TECHNIQUE: 2 views of left knee were obtained. COMPARISON: Left knee radiographs 04/15/2020 FINDINGS: Bone alignment is normal. No fracture. There is moderate osteoarthritis of medial and gonzalez lofemoral compartments and mild osteoarthritis of lateral compartment. No knee joint effusion. IMPRESSION: 1. Moderate left knee osteoarthritis. 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 CAL STAFF SERVICES COORDINATOR
--- NOTE | ~2021-11-29 | XR_ITS ---
EXAMINATION: XR_CERV2-3V_CR DATE: 11/29/2021 10:50 INDICATION: Neck injury. TECHNIQUE: 4 views of cervical spine were obtained. COMPARISON: Cervical spine radiograph 01/04/2021 FINDINGS: There is mild kyphosis of cervical spine. There is 2 mm anterolisthesis of C3 on C4 and C4 on C5 and 2 mm retrolisthesis of C5 on C6 and C6 on C7. There is 8 degrees levocurvature of cervical spine. There is mildly decreased disc height at C4-C5 and moderately decreased disc height at C5-C6 a nd C6-C7. There is multilevel mild to moderate facet joint osteoarthritis, worst on the left at C3-C4 and C4 on C5. There is mild central canal stenosis at C5-C6 and C6-C7. No prevertebral soft tissue s welling. IMPRESSION: 1. Moderate cervical spondylosis. 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 FED CASING TIER
--- NOTE | ~2021-11-29 | XR_ITS ---
EXAMINATION: XR thoracolumbar DATE: 11/29/2021 10:50 INDICATION: Back injury. TECHNIQUE: 2 views of thoracolumbar spine were obtained. COMPARISON: Lumbar spine radiographs 07/19/2021 FINDINGS: There is 14 degrees levoscoliosis of thoracolumbar spine. Vertebral body heights are normal . There is moderately decreased disc height from T8-T9 through T11-T12 and mildly decreased disc heig ht at T11-T12. There is moderately decreased disc height at L5-S1. There are endplate osteophytes at most levels. IMPRESSION: 1. Moderate thoracic and lumbar spondylosis. 2. Thoracolumbar levoscoliosis. 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 [employer]
--- NOTE | ~2021-11-29 | XR_ITS ---
EXAMINATION: XR knee RT 2V DATE: 11/29/2021 10:50 INDICATION: Right knee injury. TECHNIQUE: 2 views of right knee were obtained. COMPARISON: Right knee radiographs 07/19/2021 FINDINGS: Bone alignment is normal. No fracture. There is severe osteoarthritis of medial compartment , moderate osteoarthritis of patellofemoral compartment, and mild osteoarthritis of lateral compartme nt. No knee joint effusion. IMPRESSION: 1. Severe right knee osteoarthritis. 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 AN
[2021-11-29 09:58] VITALS: BP 183/106; PULSE 93; RESP 16; TEMP 37; O2SAT 94
--- NOTE | 2021-11-29 10:19 | ED.FALL ---
HPI - Fall General Chief Complaint: Fall Stated Complaint: widespread pain after fall Source: patient Mode of arrival: ambulatory Limitations: no limitations History of Present Illness HPI Narrative: This is a 66-year-old female that sustained a fall when she tripped over her kitten and cause pain in her neck and back and bilateral knees this happened approximately 1 week ago patient has tried dxcl-zrw-[id number] medication with mild minimal relief, has good range of motion in her neck her back her knees although tender with no swelling no bruising no numbness or tingling. complaint: fall Onset (ago): week(s) Fall from: standing Fall witnessed: no Place fall occurred: home Loss of consciousness: none Related Data Home Medications Medication Instructions Recorded Confirmed duloxetine 30 mg capsule,delayed 30 mg PO DAILY 07/27/19 11/29/21 release hydrochlorothiazide 25 mg tablet 25 mg PO DAILY 07/27/19 11/29/21 lisinopril 40 mg tablet 40 mg PO DAILY 07/27/19 11/29/21 Eliquis 5 mg PO BID 01/26/20 11/29/21 Vraylar 1.5 mg PO DAILY 01/26/20 11/29/21 albuterol sulfate [ProAir HFA] 1 inh INHALATION QID PRN 01/26/20 11/29/21 celecoxib [Celebrex] 200 mg PO DAILY 01/26/20 11/29/21 fluticasone propionate 1 inh INHALATION BID 01/26/20 11/29/21 glimepiride 2 mg PO DAILY 01/26/20 11/29/21 folic acid 1 mg PO DAILY 03/10/20 11/29/21 vitamin B complex [B 2 tablet PO BID 03/10/20 11/29/21 Complex-Vitamin B12] Austedo 12 mg PO BID 10/08/20 11/29/21 Allergies Allergy/AdvReac Type Severity Reaction Status Date / Time codeine AdvReac Unknown sick to Verified 11/29/21 10:05 stomach Review of Systems Review of Systems: All systems reviewed & are unremarkable except as noted in HPI and below PMFSH Past Medical History Medical History Afib Arthritis Asthma Colon cancer screening COPD (chronic obstructive pulmonary disease) Cyclic vomiting syndrome Depressed Emphysema/COPD GERD (gastroesophageal reflux disease) HTN (hypertension) Insomnia Sleep apnea T2DM (type 2 diabetes mellitus) Vision loss Weight gain Surgical History Surgical History Bunion removed H/O removal of cyst History of bilateral tubal ligation Family History Family History Father Family history of malignant neoplasm Leukemia Mother Family history of malignant neoplasm Pancreatic cancer Sibling Family history of malignant neoplasm Social History Social History Smoking status: Former smoker Tobacco type: cigarettes Second hand tobacco smoke exposure: No Smoking end date: 09/22/10 Alcohol intake: former Substance use: never Substance use type: does not use Gender identity (if verbalized by the patient): Female Sexual Orientation (if Verbalized by the Patient): Straight or Heterosexual Spiritual care concerns: No Agree to blood products: Yes Exam Const: General: no acute distress and alert Orientation/consciousness: patient oriented x3 HENMT: Head: normal to inspection Eyes: Conjunctivae: conjunctivae normal Pupils: Equal, round and reactive pupils present EOM: EOMs intact bilaterally Neck: Neck: normal visual inspection, no lymphadenopathy and no meningeal signs Chest: Chest palpation & inspection: normal inspection of the chest Resp: Effort & Inspection: normal respiratory effort Auscultation: clear to auscultation bilaterally Cardio: Rate: regular rate Rhythm: regular rhythm GI: Auscultation: normal bowel sounds : General: Yes no CVA tenderness Skin: General skin exam: normal color Rashes: no rashes Neuro: General: patient oriented x3 Extrem: Other: Tenderness in her neck and back and bilateral knees with palpation Psych: Mental Status: mental status grossly normal
[2021-11-29] MEDS: KETOROLAC (*BKC) 60 MG/2 ML VIAL IM (10:27)
[2021-11-29 11:28] VITALS: BP 159/87; PULSE 86; RESP 16; TEMP 36.9; O2SAT 94
== END 2021-11-29 11:31 | disposition home or self-care (01) ==
PROVIDERS: Emergency Provider Emergency Medicine; PCP Family Medicine
DX: T14.8XXA Other injury of unspecified body region, initial encounter (principal); W01.0XXA Fall on same level from slipping, tripping and stumbling without subsequent striking against object, initial encounter; I48.91 Unspecified atrial fibrillation; J44.9 Chronic obstructive pulmonary disease, unspecified; K21.9 Gastro-esophageal reflux disease without esophagitis; I10 Essential (primary) hypertension; E11.9 Type 2 diabetes mellitus without complications; Z87.891 Personal history of nicotine dependence
CPT/HCPCS: 72040; 72080; 73560; 96372; 99284; J1885

== ENCOUNTER 2022-01-05 09:14 | Outpatient (CLI) | payer MEDICARE, MEDICAID, SELFPAY | END 2022-01-05 09:15 | disposition home or self-care (01) | LOC: CHSIMG 09:17 | PROVIDERS: PCP Family Medicine; Visit Provider Family Medicine | DX: M25.561 Pain in right knee (principal); R07.89 Other chest pain | CPT/HCPCS: 99199 ==

== ENCOUNTER 2022-01-12 10:26 | Outpatient (CLI) | payer MEDICARE, MEDICAID, SELFPAY ==
--- NOTE | ~2022-01-12 | MR_ITS ---
EXAMINATION: MR knee RT wo con DATE: 01/12/2022 11:25 INDICATION: Right knee pain. TECHNIQUE: Magnetic resonance imaging (MRI) of the right knee was performed without intravenous contr ast. Sequences included axial PD-weighted FS FSE, coronal PD-weighted FSE and PD-weighted FS FSE, sag ittal PD-weighted FSE, and sagittal T2-weighted FS FSE. COMPARISON: Knee x-ray 11/29/2021. FINDINGS: Medial compartment: Severe joint space narrowing, diffuse cartilage loss and osteophytosis. Medial meniscal volume loss, degenerative signal change and tearing as well as displacement into the medial joint recess. Lateral compartment: Moderate narrowing, osteophytosis, and diffuse cartilage loss. Degenerative signal changes in the men iscus without discrete tear. Patellofemoral compartment: Moderate osteophytosis. Full-thickness cartilage loss along the medial facet. Retinacula and extensor mechanism intact. Ligaments and tendons: The ACL is thinned, with high signal undercutting the ACL origin as can be seen with partial tear. PC L is intact. Chronic thickening of the MCL. LCL intact. Fluid: Small volume joint fluid. Osseous/other: Marrow reconversion. Reactive marrow edema in the medial and patellofemoral compartments. IMPRESSION: 1. Tricompartmental osteoarthritis, severe in the medial compartment. 2. 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 3. Small right knee joint effusion. Reviewed, dictated and finalized at location K.
== END 2022-01-12 10:27 | disposition home or self-care (01) ==
LOC: CHSIMG 10:28
PROVIDERS: PCP Family Medicine; Visit Provider Family Medicine
DX: M25.561 Pain in right knee (principal)
CPT/HCPCS: 73721

== ENCOUNTER 2022-08-07 10:09 | Outpatient (CLI) | payer MEDICARE, SELFPAY ==
[2022-08-07 11:12] LABS: Cholesterol 202 mg/dL (0-200); HDL Direct 27 mg/dL (40-60); LDL Cholesterol Calculated 128 mg/dL (<130); Triglycerides 233 mg/dL (0-150)
== END 2022-08-07 10:10 | disposition home or self-care (01) ==
LOC: CHSLAB 10:11
PROVIDERS: PCP Family Medicine; Visit Provider Family Medicine
DX: E11.9 Type 2 diabetes mellitus without complications (principal)
CPT/HCPCS: 36415; 80061

== ENCOUNTER 2022-09-21 16:00 | Observation (INO) | payer MEDICARE, MEDICAID, SELFPAY ==
[2022-09-21] VITALS (27 sets, daily range): BP systolic 96–176; BP diastolic 72–126; PULSE 77–142; RESP 14–22; TEMP 36.2–37.1; O2SAT 84–97; BMI 38.8
--- NOTE | ~2022-09-21 | CT_ITS ---
EXAMINATION: CT abdomen pelvis wo con DATE: 09/21/2022 16:58 INDICATION: epigastric abd pain TECHNIQUE: Computed tomography (CT) of the abdomen and pelvis was performed without intravenous contr ast. Automated exposure control and iterative reconstruction technique were employed. The dose-length product was 1410.77 mGy-cm. COMPARISON: 11/14/2020. FINDINGS: Lower thorax: Mild cardiac megaly. Calcified pulmonary granulomas. Bibasilar scar/atelectasis, greate r in the left lower lung Liver: Normal. Biliary/Gallbladder: Cholelithiasis. No bile duct dilation. Pancreas: Mild atrophy. Spleen: Normal. Adrenals:No mass. Kidneys: Asymmetric perinephric stranding, worse on the left. Left upper pole simple cyst. No obstruc ting calculus. No suspicious mass. No hydronephrosis GI tract: Mild antral wall edema. No small or large bowel dilation. Normal appendix. Diverticulosis w ithout diverticulitis. Mesentery/Peritoneum: No ascites, mass, or free air. Retroperitoneum: No mass. Atherosclerotic abdominal aortic and/or arterial calcifications. Pelvis: Empty urinary bladder, remaining pelvic organs are within normal limits. Soft Tissues: Soft tissues and body wall unremarkable. Bones: No acute osseous finding. IMPRESSION: Asymmetric and increased left perinephric stranding, may represent ascending infection in the appropr iate clinical context Reviewed, dictated and finalized at [facility] K. AINER WASHER IMPRESSION: Asymmetric and increased left perinephric stranding, may represent ascending in fection in the appropriate clinical context
--- NOTE | ~2022-09-21 | XR_ITS ---
EXAMINATION: XR chest 1V portable Exam Date/Time: 09/21/2022 16:35 FINE ARTS PACKER HISTORY: EPIGASTRIC PAIN Comparison: 04/06/2021. RESULT: Lines, tubes, and devices: None. Lungs and pleura: Bibasilar scar/atelectasis. Mild senescent change.. Cardiomediastinal silhouette: Stable. Other: No acute osseous or upper abdominal finding. IMPRESSION: No acute cardiopulmonary process. Reviewed, dictated and finalized at location K. ARTS PACKER
--- NOTE | 2022-09-21 16:23 | ED.GENADULT ---
HPI - General Adult General Chief complaint: Abdominal Pain Stated complaint: abdominal pain Time Seen by Provider: 09/21/22 16:17 History of Present Illness HPI narrative: The patient is a 67-year-old woman with multiple comorbidities including COPD (not on oxygen), diabetes, hypertension, GERD, atrial fibrillation on eliquis, arthritis on celecoxib, and obesity. The only operation on the abdomen is the tubal ligation. She is an ex-smoker. For the last 2 days, the patient has had constant but increasing epigastric abdominal discomfort radiating to the lower aspect of the abdomen and also to the back, associated with nausea but no vomiting. Did have a bowel movement yesterday but not today yet. Does have a chronic cough from her COPD. Feels hot and cold, chills, with diaphoresis. Denies urinary symptoms such as urgency frequency or dysuria. No hematuria. No URI symptoms such as no nasal congestion, rhinorrhea, or sore throat. No chest pain. She has not taken her medications over the past 24 hours as she was nauseated. She is typically on diltiazem and eliquis which she has not taken today or yesterday. Related Data Home Medications Medication Instructions Recorded Confirmed duloxetine 30 mg capsule,delayed 30 mg PO DAILY 07/27/19 09/21/22 release hydrochlorothiazide 25 mg tablet 25 mg PO DAILY 07/27/19 09/21/22 lisinopril 40 mg tablet 40 mg PO DAILY 07/27/19 09/21/22 albuterol sulfate 90 mcg/actuation 1 inh inhalation QID PRN Wheezing 01/26/20 09/21/22 aerosol inhaler (ProAir HFA) apixaban 2.5 mg tablet (Eliquis) 5 mg PO BID 01/26/20 09/21/22 cariprazine 1.5 mg capsule 1.5 mg PO DAILY 01/26/20 09/21/22 (Vraylar) celecoxib 200 mg capsule (Celebrex) 200 mg PO DAILY 01/26/20 09/21/22 fluticasone propionate 50 1 inh inhalation BID 01/26/20 09/21/22 mcg/actuation blister powder for inhalation folic acid 1 mg tablet 1 mg PO DAILY 03/10/20 09/21/22 vitamin B complex (B 2 tablet PO BID 06/19/20 12/31/22 Complex-Vitamin B12 tablet) deutetrabenazine 12 mg tablet 12 mg PO BID 10/08/20 09/21/22 (Austedo) diltiazem HCl 240 mg 240 mg PO DAILY 09/21/22 09/21/22 capsule,extended release 24 hr Allergies Allergy/AdvReac Type Severity Reaction Status Date / Time codeine AdvReac Unknown sick to Verified 04/09/22 09:43 stomach Review of Systems Review of Systems: All systems reviewed & are unremarkable except as noted in HPI and below Constitutional: Constitutional: Reports no additional constitutional complaints, Denies anorexia, Reports body ache(s), Reports chills, Reports fatigue, Denies fever(s), Denies frequent falls, Denies headache(s), Reports malaise and Reports weakness Eyes: Eyes: Reports no additional eye complaints, Denies blurry vision, Denies change in vision, Denies irritation, Denies itchy eyes and Denies photophobia ENT: Reports system reviewed and no additional complaints, except as documented, Reports Normal hearing present, Denies change in voice, Denies dysphagia, Denies vertigo, Denies dizziness, Denies ear discharge, Denies headache(s), Denies hearing loss, Denies hoarseness, Denies nasal congestion, Denies neck pain, Denies sinus pressure, Denies sore throat and Denies throat swelling Cardiovascular: Cardiovascular: Reports no additional cardiovascular complaints, Denies chest pain, Denies syncope, Denies rapid heart rate, Denies irregular heart rhythm, Denies leg edema, Denies dyspnea and Denies slow heart rate Respiratory: Respiratory: Reports no additional respiratory complaints, Reports cough ( Chronic), Denies dyspnea, Denies stridor and Denies wheezing Gastrointestinal: Gastrointestinal: Reports no additional gastrointestinal complaints, Reports abdominal pain, Denies melena, Denies hematochezia, Denies dysphagia, Denies diarrhea, Reports nausea and Denies vomiting Genitourinary: Genitourinary: Denies hematuria, Denies urinary frequency, Denies dysuria, Denies flank pain and Den
--- NOTE | 2022-09-21 16:35 | ECG_ITS ---
Measurements Intervals [place] Rate: 115 P: 90 MS: 185 QRS: 20 QRSD: 100 T: 44 QT: 348 QTc: 482 Interpretive Statements SINUS TACHYCARDIA CHANGES TO SUPRAVENTRICULAR TACHYCARDIA ATRIAL TRIPLET DELAYED PRECORDIAL R/S TRANSITION ABNORMAL ECG NO PREVIOUS ECG AVAILABLE FOR COMPARISON Electronically Signed On 09-22-2022 7:52:51 ASSISTANT FRONT OFFICE MANAGER by Gary Taveras D.O.
[2022-09-21] MEDS: SODIUM CHLORIDE 0.9% IV 1,000 ML 999 ML IV CONT ×2 (16:41→18:43)
[2022-09-21] MEDS: ONDANSETRON INJ 4 MG/2 ML VIAL IV PUSH (16:44)
[2022-09-21] MEDS: MORPHINE SULFATE (*CRX) 4 MG/ML INJ IV PUSH (16:44)
[2022-09-21 16:53] LABS: Hematocrit 51.6 % (35.0-42.0); Hemoglobin 17.3 g/dL (11.7-13.8); Mean Corpuscular HGB Conc 33.5 g/dL (32.0-36.0); Mean Corpuscular Hemoglobin 32.8 pg (27.0-31.0); Mean Corpuscular Volume 97.9 fL (78.0-102.0); Mean Platelet Volume 9.5 fl (9.2-11.8); Platelet Count Result 352 K/mm3 (150-420); Red Blood Count 5.27 M/mm3 (4.20-5.40); White Blood Count 18.8 K/mm3 (4.8-10.8)
[2022-09-21 16:54] LABS: Add Urine Microscopic? YES; Appearance Urine Clear (Clear); Bilirubin Urine 1+ (Negative); Blood Urine Negative (Negative); Color Urine Yellow (Yellow); Glucose Urine UA Negative (Negative); Ketones Urine 2+ (Negative); Leukocyte Esterase Ur Negative LEU/UL (Negative); Nitrate Urine Negative (Negative); Protein Urine 2+ (Negative); Specific Grav Ur 1.025 (1.010-1.020); Urobilinogen Urine 0.2 mg/dL (0.2-1.0)
[2022-09-21 17:05] LABS: Amorphous Sediment Urine Moderate; Mucus Urine Heavy /lpf; Squamous Epithelial Cell Urine Many /hpf (Few)
[2022-09-21 17:10] LABS: Alanine Aminotransferase 9 U/L (14-59); Albumin Level 3.6 g/dL (3.4-5.0); Alkaline Phosphatase 120 U/L (46-116); Amylase 16 U/L (25-115); Anion Gap 10 mmol/L (8-16); Aspartate Amino Transferase < 10 U/L (15-37); Bilirubin,Total 0.8 mg/dL (0.00-1.00); Blood Urea Nitrogen 15 mg/dL (7-18); Calcium 8.5 mg/dL (8.5-10.1); Carbon Dioxide 27 mmol/L (21-32); Chloride 98 mmol/L (98-108); Estimated Glomerular Filt Rate 59; Glucose 217 mg/dL (70-99); Lipase 11 U/L (16-77); Magnesium 1.7 mg/dL (1.8-2.4); Osmolality Calculated 287 mOsm/kg (285-295); Potassium 3.3 mmol/L (3.5-5.1); Sodium 135 mmol/L (136-145); Total Protein 7.7 g/dL (6.4-8.2); Troponin I 7.2 ng/L (0.00-60.4)
--- NOTE | 2022-09-21 17:10 | PC.NURSE ---
pt talking on cell phone. no complaints at this time.
[2022-09-21 17:16] LABS: Total Cells Counted 100
[2022-09-21 17:17] LABS: Band Neutrophils Percent 2 % (0-6); Basophils Absolute Manual 0.18 K/mm3 (0-0.1); Basophils Percent Manual 1 % (0-1); Eosinophils Absolute Manual 0.18 K/mm3 (0.02-0.5); Eosinophils Percent Manual 1 % (1-6); Hypersegmented Neutrophils Present; Lymphocytes Percent Manual 8 % (18-44); Monocytes Absolute Manual 0.94 K/mm3 (0.1-0.90); Monocytes Percent Manual 5 % (3-9); Neutrophils Absolute Manual 15.98 K/mm3 (1.7-7.2); Neutrophils Percent Manual 83 % (46-73); Platelet Estimate Adequate (Adequate); Schistocytes None Seen (NORMAL)
[2022-09-21 17:26] LABS: Influenza A QL RT-PCR Negative (Negative); Influenza B QL RT-PCR Negative (Negative); SARS-CoV-2 RNA PCR Negative (Negative)
[2022-09-21 17:28] LABS: RSV RNA, RT-PCR Negative (Negative)
[2022-09-21] MEDS: HYDROmorphone HCL INJ (*CRX) 2 MG/ML VIAL 1 MG IV PUSH (17:51)
[2022-09-21] MEDS: PROCHLORPERAZINE EDISYLATE 10 MG/2 ML VIAL IV PUSH (17:58)
[2022-09-21] MEDS: POTASSIUM BICARBONATE 25 MEQ TABEF 50 MEQ PO (18:22)
[2022-09-21] MEDS: dilTIAZem HCl INJ 25 MG/5 ML VIAL 10 MG IV PUSH ×2 (18:22→22:12)
[2022-09-21] MEDS: MAGNESIUM SULF 2 GM/WATER 50ML 2 GM/50 ML BAG IVPB (18:24)
[2022-09-21] MEDS: ENOXAPARIN 1 MG/KG 110 MG SUB-Q (18:28)
[2022-09-21] MEDS: dilTIAZem 100 MG/100 ML 100 MG/100 ML BAG IV CONT (18:35)
--- NOTE | 2022-09-21 19:15 | ADMGEN ---
This patient, Yulia Gaston, was admitted to 2nd Floor Room 209-1. Patient was oriented to hospital policies and general routines including ID bracelet, bed and alarms, pain management, procedures, bathroom and other care routines, personal items, smoking policy, room service/diet, and visiting hours. Information on how to activate the Rapid Response Team has been discussed. Patient/Family are encouraged to report perceived risks to care and to ask questions if they do not understand what they are told or what they should do.
[2022-09-21 19:52] LABS: Amphetamine Screen Urine Negative (Negative); Barbiturate Screen Urine Negative (Negative); Benzodiazepines Screen Urine Negative (Negative); Cannabinoid Screen Urine Positive (Negative); Cocaine Screen Urine Negative (Negative); Methadone Screen Urine Negative (Negative); Opiate Screen Urine Positive (Negative); Phencyclidine Screen Urine Negative (Negative)
[2022-09-21] MEDS: VITAMIN B COMPLEX CAPSULE 2 CAP PO (21:19)
[2022-09-21] MEDS: traZODone HCL 50 MG TABLET PO (21:19)
[2022-09-21] MEDS: POTASSIUM BICARBONATE 25 MEQ TABEF PO (21:19)
--- NOTE | 2022-09-21 21:40 | PC.NURSE ---
Patient came to the floor on a cardizem drip due to Atrial Fibrillation RVR. CLINICAL PROVIDER TRAINER gave orders for the patient to be placed on Telemetry, and the Cardizem drip to be stopped. In the 2 hours since the telemetry was placed, patient has alarmed 15 times for a heart rate from 120-129; 14 times for a heart rate from 130-139; and 14 times for a heart rate over 140, with a high of 146. Charge nurse was notified, as was CLINICAL PROVIDER TRAINER.
[2022-09-21] MEDS: LORazepam INJ (*CRX) 2 MG/ML VIAL 0.5 MG IV PUSH (22:18)
[2022-09-22] VITALS (11 sets, daily range): BP systolic 120–137; BP diastolic 70–104; PULSE 83–133; RESP 16–20; TEMP 36.1–36.6; O2SAT 90–95
[2022-09-22] MEDS: dilTIAZem HCl INJ 25 MG/5 ML VIAL 10 MG IV PUSH ×5 (00:31→23:53)
--- NOTE | 2022-09-22 00:35 | PC.NURSE ---
Patient was given 10 mg Diltiazem IV push at 2212, as it was ordered PRN for heart rate over 120. Heart rate was 138 when medication was given. During the 2 hours from 0 to 0, patient had 11 alarms of heart rate from 120-129; 7 alarms with heart rate from 130-139; and only 4 alarms with heart rate over 140. This represents a reduction in overall alarms, especially at the higher heart rate levels. However, patient's heart rate is still jumping over 120 many times. Patient was given her second IV push of 10 mg Diltiazem at 003 on 09/22/2022.
[2022-09-22] MEDS: LORazepam INJ (*CRX) 2 MG/ML VIAL 0.5 MG IV PUSH (02:58)
--- NOTE | 2022-09-22 03:00 | PC.NURSE ---
Patient alarmed heart rate 120-129 27 times; heart rate 130-139 1 time; and heart rate above 140 2 times from 0 to 5. Patient was given 10 mg of diltiazem, IV push. PLATER PRODUCTION asked for 0.5 mg of ativan to be given at the same time, so even though the next dose was not due until 344, ativan was given at 0258.
[2022-09-22 05:12] LABS: Hematocrit 44.3 % (35.0-42.0); Hemoglobin 14.6 g/dL (11.7-13.8); Mean Corpuscular Hemoglobin 32.9 pg (27.0-31.0); Mean Corpuscular Volume 99.8 fL (78.0-102.0); Mean Platelet Volume 9.7 fl (9.2-11.8); Platelet Count Result 288 K/mm3 (150-420); Red Blood Count 4.44 M/mm3 (4.20-5.40); Red Cell Distribution Width 15.6 % (11.6-14.4); White Blood Count 13.7 K/mm3 (4.8-10.8)
[2022-09-22 05:30] LABS: Alanine Aminotransferase 13 U/L (14-59); Alkaline Phosphatase 87 U/L (46-116); Anion Gap 7 mmol/L (8-16); Aspartate Amino Transferase < 10 U/L (15-37); Bilirubin,Total 0.5 mg/dL (0.00-1.00); Blood Urea Nitrogen 14 mg/dL (7-18); Calcium 7.8 mg/dL (8.5-10.1); Carbon Dioxide 31 mmol/L (21-32); Chloride 104 mmol/L (98-108); Estimated CRCL calculation 66 ml/min; Estimated Glomerular Filt Rate 59; Glucose 140 mg/dL (70-99); Osmolality Calculated 296 mOsm/kg (285-295); Potassium 3.3 mmol/L (3.5-5.1); Sodium 142 mmol/L (136-145); Total Protein 6.2 g/dL (6.4-8.2)
--- NOTE | 2022-09-22 05:30 | PC.NURSE ---
Patient's telemetry alarmed 15 times for heart rate 120-129; 12 times for heart rate of 130-139; and 6 times for >140 from 0315 to 0515. Patient's heart rate returns to the 80's after short bouts of tachycardia. Patient was again given 10 mg of diltiazem, IV push. Telemetry will again be monitored.
[2022-09-22] MEDS: DULoxetine HCL 30 MG CAPSULE.DR PO (08:40)
[2022-09-22] MEDS: APIXABAN 2.5 MG TABLET 5 MG PO ×2 (08:41→17:19)
[2022-09-22] MEDS: CELECOXIB 100 MG CAPSULE 200 MG PO (08:41)
[2022-09-22] MEDS: lisinopriL 20 MG TABLET 40 MG PO (08:41)
[2022-09-22] MEDS: VITAMIN B COMPLEX CAPSULE 2 CAP PO ×2 (08:41→17:19)
[2022-09-22] MEDS: FOLIC ACID 1 MG TABLET PO (08:41)
[2022-09-22] MEDS: hydroCHLOROthiazide 25 MG TABLET PO (08:41)
--- NOTE | 2022-09-22 11:17 | PM.IMHP ---
H&P: HPI History of Present Illness Date/Time: 09/22/22 11:17 Chief Complaint: abdominal pain Narrative: this is a [age]-year-old female who presented to emergency department with complaints of abdominal pain that she has had for the last 2 days. patient has a past medical history of AFib, asthma, copd, depression, htn, T2DM and sleep apnea. according to patient for the last 2 days she has not been able to hold down any fluids she has been feeling nauseated but denies any vomiting. Patient has not taking her medication for AFib patient AFib RVR on admission. Diltiazem drip started in the ED discontinue on floor patient given IV push.WBC 18.8,hgb 17.3, hct 51.6 plt 352, sodium 135, potassium 3.3, BUN 15, Cr 0.94,glucose 217, magnesium 1.7 total bilirubin 0.8 AST less than 10 ALT 9 troponin 7.2 amylase 16 lipase 11 UA positive for protein bilirubin RSV, COVID influenza negative CT of the abdomen indicates possible infection. patient rate is better controlled today will monitor for 1 more day to get heart rate below 100 patient notes that she feels better and is anxious to discharge. Patient notes that her abdominal pain has improvedThe patient denies SOB, CP, palpitation, extremity numbness, lightheadedness, dizziness, constipation, diarrhea, chills, or fever. Review of Systems Review of Systems: A 14 organ system Review of Systems was performed and pertinent positives included in the HPI, otherwise remaining ROS is negative. [facility] Past Medical History Medical History Afib Arthritis Asthma Colon cancer screening COPD (chronic obstructive pulmonary disease) Cyclic vomiting syndrome Depressed Emphysema/COPD GERD (gastroesophageal reflux disease) HTN (hypertension) Insomnia Sleep apnea T2DM (type 2 diabetes mellitus) Vision loss Weight gain Surgical History Surgical History Bunion removed H/O removal of cyst History of bilateral tubal ligation Family History Family History Father Family history of malignant neoplasm Leukemia Mother Family history of malignant neoplasm Pancreatic cancer Sibling Family history of malignant neoplasm Social History Social History Smoking packs per day: 1 Smoking cigarettes per day: 20.0 Years smoked: 45 Smoking pack-years: 45.00 Smoking status: Former smoker Tobacco type: cigarettes Second hand tobacco smoke exposure: No Smoking end date: 09/22/10 Alcohol intake: never Substance use: never Substance use type: marijuana Last use: 09/15/2022 Lack of Transportation: No Lack of Food: Often True Current Housing: I Have Housing Concerned About Future Housing: No Difficulty Paying Gas/Electric Bills: No Difficulty Paying for Meds: No Currently Unemployed: No Education: High School Diploma/GED Difficulty w/ Childcare or Family Care: No Gender identity (if verbalized by the patient): Female Sexual Orientation (if Verbalized by the Patient): Straight or Heterosexual Spiritual care concerns: No Agree to blood products: Yes Meds Home Medications and Allergies Home Medications Medication Instructions Recorded Confirmed Type duloxetine 30 mg capsule,delayed 30 mg PO DAILY 07/27/19 09/21/22 History release hydrochlorothiazide 25 mg tablet 25 mg PO DAILY 07/27/19 09/21/22 History lisinopril 40 mg tablet 40 mg PO DAILY 07/27/19 09/21/22 History albuterol sulfate 90 mcg/actuation 1 inh inhalation QID PRN Wheezing 01/26/20 09/21/22 History aerosol inhaler (ProAir HFA) apixaban 2.5 mg tablet (Eliquis) 5 mg PO BID 01/26/20 09/21/22 History cariprazine 1.5 mg capsule 1.5 mg PO DAILY 01/26/20 09/21/22 History (Vraylar) celecoxib 200 mg capsule (Celebrex) 200 mg PO DAILY 01/26/20 09/21/22 History fluticas
[2022-09-22] MEDS: HYDROcodone/acetaminophen (*CRX) 5-325 MG TABLET 1 TAB PO (17:23)
[2022-09-22] MEDS: PROCHLORPERAZINE EDISYLATE 10 MG/2 ML VIAL IV PUSH (17:33)
[2022-09-23 03:34] VITALS: PULSE 101
[2022-09-23 04:00] VITALS: BP 127/77; PULSE 83; RESP 15; TEMP 36.2; O2SAT 93
[2022-09-23 05:27] LABS: Hematocrit 43.2 % (35.0-42.0); Hemoglobin 14.4 g/dL (11.7-13.8); Mean Corpuscular HGB Conc 33.3 g/dL (32.0-36.0); Mean Corpuscular Hemoglobin 33.3 pg (27.0-31.0); Mean Corpuscular Volume 99.8 fL (78.0-102.0); Mean Platelet Volume 9.8 fl (9.2-11.8); Platelet Count Result 271 K/mm3 (150-420); Red Blood Count 4.33 M/mm3 (4.20-5.40); Red Cell Distribution Width 15.2 % (11.6-14.4); White Blood Count 11.1 K/mm3 (4.8-10.8)
[2022-09-23 05:45] LABS: Alanine Aminotransferase 15 U/L (14-59); Alkaline Phosphatase 84 U/L (46-116); Anion Gap 6 mmol/L (8-16); Aspartate Amino Transferase 10 U/L (15-37); Bilirubin,Total 0.6 mg/dL (0.00-1.00); Blood Urea Nitrogen 13 mg/dL (7-18); Calcium 7.9 mg/dL (8.5-10.1); Carbon Dioxide 30 mmol/L (21-32); Chloride 104 mmol/L (98-108); Estimated CRCL calculation 70 ml/min; Estimated Glomerular Filt Rate > 60; Glucose 126 mg/dL (70-99); Osmolality Calculated 292 mOsm/kg (285-295); Potassium 3.1 mmol/L (3.5-5.1); Sodium 140 mmol/L (136-145); Total Protein 6.2 g/dL (6.4-8.2)
[2022-09-23 08:00] VITALS: BP 141/85; PULSE 102; PULSE 81; RESP 16; TEMP 36.5; O2SAT 91
[2022-09-23] MEDS: VITAMIN B COMPLEX CAPSULE 2 CAP PO (08:45)
[2022-09-23] MEDS: lisinopriL 20 MG TABLET 40 MG PO (08:45)
[2022-09-23] MEDS: hydroCHLOROthiazide 25 MG TABLET PO (08:46)
[2022-09-23] MEDS: CELECOXIB 100 MG CAPSULE 200 MG PO (08:46)
[2022-09-23] MEDS: DULoxetine HCL 30 MG CAPSULE.DR PO (08:46)
[2022-09-23] MEDS: APIXABAN 2.5 MG TABLET 5 MG PO (08:47)
[2022-09-23] MEDS: FOLIC ACID 1 MG TABLET PO (08:48)
[2022-09-23] MEDS: CALCIUM CARBONATE (OSCAL) 250 MG TABLET PO (08:52)
[2022-09-23] MEDS: POTASSIUM CHLORIDE 20 MEQ TABLET 40 MEQ PO (09:03)
--- NOTE | 2022-09-23 10:33 | PM.DS ---
DS: Admitting Diagnosis Discharge Date 09/23/2022 Admitting Diagnosis abdominal pain AFib with RVR DS: Discharge Diagnosis Discharge Diagnosis (1) Atrial fibrillation with rapid ventricular response: Code(s): I48.91 - Unspecified atrial fibrillation Status: Acute Assessment and Plan: controlled EKG indicates sinus tach with heart rate of 115 due to patient not taking her AFib medication due to nausea continue telemetry continue Eliquis continue home medication (2) Nausea: Code(s): R11.0 - Nausea Status: Acute Assessment and Plan: refer to epigastric pain (3) Abdominal pain, epigastric: Code(s): R10.13 - Epigastric pain Status: Acute Assessment and Plan: chronic patient has had a consult with GI in the past, nausea vomiting lead to be related to use of marijuana patient's CT of the abdomen indicated possible infection patient will discharge home with cefdinir wbc 18.8>13.7>11.1 (4) COPD (chronic obstructive pulmonary disease): Qualifiers: COPD type: unspecified COPD Qualified Code(s): J44.9 - Chronic obstructive pulmonary disease, unspecified Code(s): J44.9 - Chronic obstructive pulmonary disease, unspecified Status: Acute Assessment and Plan: controlled continue albuterol and supplementary oxygen if needed (5) Sleep apnea: Code(s): G47.30 - Sleep apnea, unspecified Status: Acute (6) GERD (gastroesophageal reflux disease): Code(s): K21.9 - Gastro-esophageal reflux disease without esophagitis Status: Acute Assessment and Plan: continue pantoprazole (7) Morbid obesity: Code(s): E66.01 - Morbid (severe) obesity due to excess calories Status: Acute Assessment and Plan: patient educated on healthy lifestyle (8) Drug abuse: Code(s): F19.10 - Other psychoactive substance abuse, uncomplicated Status: Acute Assessment and Plan: opiates and cannabis positive patient educated on cessation (9) Infection: Code(s): B99.9 - Unspecified infectious disease Status: Acute Assessment and Plan: Wbc's 18.8>13.7 CT of the abdomen indicate infection discharged with cefdinir (10) Hypomagnesemia: Code(s): E83.42 - Hypomagnesemia Status: Acute Assessment and Plan: patient received supplement will discharge with supplement with a repeat lab draw with results going to primary care physician (11) Hypokalemia: Code(s): E87.6 - Hypokalemia Status: Acute Assessment and Plan: patient received supplement will discharge with supplement with a repeat lab draw with results going to primary care physician DS: Summary Hospital Course Reason for hospitalization: abdominal pain Hospital Course: this is a 67-year-old female who presented to emergency? department with complaints of abdominal pain that she had for 2 days. ? patient has a past medical history of AFib, asthma, copd, depression, htn, T2DM and sleep apnea. according to patient for 2 days she has not been able to hold down any fluids she has been feeling nauseated but denies any vomiting.? Patient has not taking her medication for AFib patient AFib RVR on admission. patient was also treated for possible infection. This day of discharge patient condition has improved she is no longer experiencing any nausea or abdominal pain in her AFib was controlled. The patient denies SOB, CP, palpitation, extremity numbness, lightheadedness, dizziness, constipation, diarrhea, chills, or fever.Discharge instructions reviewed with patient, as well as provided in writing per nursing staff. The instructions also include specific and strict return/GO TO THE ER as well as f/u information. All questions have been answered, and the patient and/or family deny any further questions with discharge and discharge plan. Time Spent with Patient Time attestation:
--- NOTE | 2022-09-23 11:40 | PC.NURSE ---
Patient received discharge instructions and voiced understanding. Personal medications sent home with patient at the time of discharge. Patient left unit in w/c and left facility in privately owned vehicle. IV site and telemetry discontinued prior to discharge.
--- NOTE | 2022-09-26 11:32 | PC.NURSE ---
Unable to contact.
== END 2022-09-23 11:40 | disposition home or self-care (01) ==
LOC: CHSED 17:22 → CHS2ND 18:44
PROVIDERS: Nurse Practitioner; Admitting Provider Internal Medicine; Emergency Provider Emergency Medicine; PCP Family Medicine; Visit Provider Internal Medicine
DX: I48.20 Chronic atrial fibrillation, unspecified (principal); N12 Tubulo-interstitial nephritis, not specified as acute or chronic; E83.42 Hypomagnesemia; E87.6 Hypokalemia; I10 Essential (primary) hypertension; J44.9 Chronic obstructive pulmonary disease, unspecified; E11.9 Type 2 diabetes mellitus without complications; E66.9 Obesity, unspecified; K21.9 Gastro-esophageal reflux disease without esophagitis; M19.90 Unspecified osteoarthritis, unspecified site; G47.30 Sleep apnea, unspecified; F32.A Depression, unspecified; F19.10 Other psychoactive substance abuse, uncomplicated; Z20.822 Contact with and (suspected) exposure to COVID-19; Z87.891 Personal history of nicotine dependence; Z79.01 Long term (current) use of anticoagulants; Z91.14 Patient's other noncompliance with medication regimen; Z79.899 Other long term (current) drug therapy
CPT/HCPCS: 36415; 71045; 74176; 80053; 80307; 81001; 82150; 83690; 83735; 84484; 85025; 85027; 87637; 93005; 96361; 96365; 96367; 96372; 96375; 96376; 99285; A9270; G0378; J0696; J0780; J1170; J1650; J2060; J2270; J2405; J3475; J7030

== ENCOUNTER 2022-09-27 13:38 | Outpatient (CLI) | payer MEDICARE, SELFPAY ==
[2022-09-27 14:58] LABS: Alanine Aminotransferase 19 U/L (14-59); Albumin Level 3.3 g/dL (3.4-5.0); Alkaline Phosphatase 99 U/L (46-116); Anion Gap 10 mmol/L (8-16); Aspartate Amino Transferase 12 U/L (15-37); Bilirubin,Total 0.3 mg/dL (0.00-1.00); Blood Urea Nitrogen 11 mg/dL (7-18); Calcium 8.3 mg/dL (8.5-10.1); Carbon Dioxide 28 mmol/L (21-32); Chloride 102 mmol/L (98-108); Estimated Glomerular Filt Rate > 60; Glucose 145 mg/dL (70-99); Osmolality Calculated 292 mOsm/kg (285-295); Potassium 3.8 mmol/L (3.5-5.1); Sodium 140 mmol/L (136-145); Total Protein 6.3 g/dL (6.4-8.2)
== END 2022-09-27 13:39 | disposition home or self-care (01) ==
LOC: CHSLAB 13:39
PROVIDERS: PCP Family Medicine; Visit Provider Nurse Practitioner
DX: E83.42 Hypomagnesemia (principal); E87.6 Hypokalemia
CPT/HCPCS: 36415; 80053

== ENCOUNTER 2022-10-24 15:17 | Outpatient (CLI) | payer MEDICARE, SELFPAY ==
[2022-10-24 16:43] LABS: Anion Gap 8 mmol/L (8-16); Blood Urea Nitrogen 14 mg/dL (7-18); Calcium 8.8 mg/dL (8.5-10.1); Carbon Dioxide 32 mmol/L (21-32); Chloride 103 mmol/L (98-108); Estimated Glomerular Filt Rate 60; Glucose 177 mg/dL (70-99); Osmolality Calculated 300 mOsm/kg (285-295); Potassium 3.6 mmol/L (3.5-5.1); Sodium 143 mmol/L (136-145)
== END 2022-10-24 15:18 | disposition home or self-care (01) ==
LOC: CHSLAB 15:23
PROVIDERS: PCP Family Medicine; Visit Provider Family Medicine
DX: I10 Essential (primary) hypertension (principal); R53.83 Other fatigue
CPT/HCPCS: 36415; 80048

== ENCOUNTER 2022-10-30 09:45 | Outpatient (CLI) | payer MEDICARE, MEDICAID, SELFPAY ==
--- NOTE | ~2022-10-30 | CT_ITS ---
EXAMINATION: CT abdomen w con INDICATION: Left-sided abdominal mass TECHNIQUE: Computed tomographic images of the abdomen were obtained after the administration of 100 c c of Omnipaque 350 intravenous contrast. The dose-length product (DLP) was 917.16 mGy-cm. Automated e xposure control and iterative reconstruction technique were employed. COMPARISON: 09/21/2022 FINDINGS: Minimal dependent atelectasis is present in the lung bases. The heart size is normal. The l iver, spleen, pancreas, gallbladder, and adrenal glands are normal. Cysts of the kidneys measure up t o 12 mm on the left. There are no pathologically enlarged abdominal lymph nodes. A large volume of co lonic stool is present. No free intraperitoneal gas or evidence of bowel obstruction. The left latera l aspect of the abdominal wall abuts the gantry and is not well imaged. No abdominal wall mass is mario ntified. There is severe thoracic spondylosis. IMPRESSION: 1. No abdominal wall mass identified. Reviewed, dictated and finalized at location B. CENTER NURSE
== END 2022-10-30 09:46 | disposition home or self-care (01) ==
LOC: CHSIMG 09:46
PROVIDERS: PCP Family Medicine; Visit Provider Family Medicine
DX: R22.2 Localized swelling, mass and lump, trunk (principal)
CPT/HCPCS: 74160; Q9967

== ENCOUNTER 2023-04-22 09:12 | Outpatient (CLI) | payer MEDICARE, MEDICAID, SELFPAY ==
--- NOTE | ~2023-04-22 | XR_ITS ---
EXAMINATION: XR knee RT 3V DATE: 04/22/2023 10:00 INDICATION: Right knee pain. TECHNIQUE: 3 views of right knee were obtained. COMPARISON: Right knee radiographs 11/29/2021 FINDINGS: Bone alignment is normal. No fracture. There is severe osteoarthritis of medial compartment and moderate osteoarthritis of lateral and patellofemoral compartments. No knee joint effusion. IMPRESSION: 1. Severe right knee osteoarthritis. 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
[2023-04-22 09:30] LABS: Basophils Absolute Auto 0.07 K/mm3 (0.00-0.10); Basophils Percent Auto 0.6 % (0.0-1.0); Eosinophils Percent Auto 3.6 % (1.0-6.0); Hematocrit 44.9 % (35.0-42.0); Hemoglobin 15.4 g/dL (11.7-13.8); Immature Granulocyte Absolute 0.05 K/mm3 (0.00-0.00); Immature Granulocyte Percent A 0.5 % (0.0-0.0); Lymphocytes Absolute Auto 1.62 K/mm3 (1.10-4.50); Lymphocytes Percent Auto 14.6 % (18.0-42.0); Mean Corpuscular HGB Conc 34.3 g/dL (32.0-36.0); Mean Corpuscular Hemoglobin 33.7 pg (27.0-31.0); Mean Corpuscular Volume 98.2 fL (78.0-102.0); Mean Platelet Volume 9.4 fl (9.2-11.8); Monocytes Absolute Auto 0.65 K/mm3 (0.10-0.90); Monocytes Percent Auto 5.9 % (2.0-11.0); Neutrophils Absolute Auto 8.3 K/mm3 (1.7-7.2); Neutrophils Percent Auto 74.8 % (50.0-70.0); Platelet Count Result 255 K/mm3 (150-420); Red Blood Count 4.57 M/mm3 (4.20-5.40); Red Cell Distribution Width 15.3 % (11.6-14.4); White Blood Count 11.1 K/mm3 (4.8-10.8)
[2023-04-22 09:41] LABS: MALB Creatinine Ratio 12.6 mg/g (0-30); Microalbumin Urine Random 43.6 mg/L
[2023-04-22 09:43] LABS: Hemoglobin A1C 6.6 % (<5.7)
[2023-04-22 10:28] LABS: Alanine Aminotransferase 20 U/L (14-59); Albumin Level 3.7 g/dL (3.4-5.0); Alkaline Phosphatase 106 U/L (46-116); Anion Gap 9 mmol/L (8-16); Aspartate Amino Transferase 15 U/L (15-37); Bilirubin,Total 0.9 mg/dL (0.00-1.00); Blood Urea Nitrogen 13 mg/dL (7-18); Carbon Dioxide 33 mmol/L (21-32); Chloride 102 mmol/L (98-108); Estimated Glomerular Filt Rate > 60; Glucose 213 mg/dL (70-99); Osmolality Calculated 304 mOsm/kg (285-295); Potassium 3.5 mmol/L (3.5-5.1); Sodium 144 mmol/L (136-145); Thyroid Stimulating Hormone 2.56 uIU/mL (0.36-3.74)
== END 2023-04-22 09:13 | disposition home or self-care (01) ==
PROVIDERS: PCP Family Medicine; Visit Provider Family Medicine
DX: E11.9 Type 2 diabetes mellitus without complications (principal); M25.561 Pain in right knee; M17.11 Unilateral primary osteoarthritis, right knee
CPT/HCPCS: 36415; 73562; 80053; 82043; 83036; 84443; 85025

== ENCOUNTER 2023-06-06 13:19 | Outpatient (CLI) | payer MEDICARE, MEDICAID, SELFPAY ==
--- NOTE | ~2023-06-06 | XR_ITS ---
XR chest 2V 06/06/2023 13:43 Indication: Acute cough, shortness of breath and body aches. Chills. History of COPD. Procedure: 2 view chest Comparison: Comparison to multiple prior studies sequentially, with oldest reviewed study dated 10/08. Findings: Cardiomegaly. No focal air space disease, pulmonary edema, pleural effusion or suspected pn eumothorax. No acute osseous abnormality. Impression: 1: No acute cardiopulmonary disease. Reviewed, dictated and finalized at location B. Impression: 1: No acute cardiopulmonary disease.
== END 2023-06-06 13:20 | disposition home or self-care (01) ==
LOC: CHSIMG 13:21
PROVIDERS: PCP Family Medicine; Visit Provider Family Medicine
DX: R05.1 Acute cough (principal)
CPT/HCPCS: 71046

== ENCOUNTER 2023-06-12 13:47 | Outpatient (CLI) | payer MEDICARE, MEDICAID, SELFPAY ==
[2023-06-12 14:17] LABS: Appearance Urine Clear (Clear); Basophils Absolute Auto 0.09 K/mm3 (0.00-0.10); Basophils Percent Auto 0.6 % (0.0-1.0); Bilirubin Urine Negative (Negative); Blood Urine Negative (Negative); Color Urine Yellow (Yellow); Eosinophils Absolute Auto 0.63 K/mm3 (0.02-0.50); Eosinophils Percent Auto 4.5 % (1.0-6.0); Glucose Urine UA Negative (Negative); Hematocrit 47.1 % (35.0-42.0); Hemoglobin 15.2 g/dL (11.7-13.8); Immature Granulocyte Percent A 0.7 % (0.0-0.0); Ketones Urine Negative (Negative); Leukocyte Esterase Ur Negative LEU/UL (Negative); Lymphocytes Absolute Auto 1.88 K/mm3 (1.10-4.50); Lymphocytes Percent Auto 13.5 % (18.0-42.0); Mean Corpuscular HGB Conc 32.3 g/dL (32.0-36.0); Mean Corpuscular Hemoglobin 32.6 pg (27.0-31.0); Mean Corpuscular Volume 101.1 fL (78.0-102.0); Mean Platelet Volume 9.2 fl (9.2-11.8); Monocytes Absolute Auto 0.81 K/mm3 (0.10-0.90); Monocytes Percent Auto 5.8 % (2.0-11.0); Neutrophils Absolute Auto 10.4 K/mm3 (1.7-7.2); Neutrophils Percent Auto 74.9 % (50.0-70.0); Nitrate Urine Negative (Negative); Platelet Count Result 297 K/mm3 (150-420); Protein Urine Negative (Negative); Red Blood Count 4.66 M/mm3 (4.20-5.40); Red Cell Distribution Width 15.9 % (11.6-14.4); Specific Grav Ur 1.015 (1.010-1.020); White Blood Count 13.9 K/mm3 (4.8-10.8); pH Urine 6.5 (5.0-8.0)
[2023-06-12 14:20] LABS: Add Urine Microscopic? NO
[2023-06-12 15:00] LABS: Alanine Aminotransferase 8 U/L (14-59); Albumin Level 3.5 g/dL (3.4-5.0); Alkaline Phosphatase 94 U/L (46-116); Anion Gap 6 mmol/L (8-16); Aspartate Amino Transferase < 10 U/L (15-37); Bilirubin,Total 0.6 mg/dL (0.00-1.00); Blood Urea Nitrogen 10 mg/dL (7-18); Calcium 9.1 mg/dL (8.5-10.1); Carbon Dioxide 35 mmol/L (21-32); Chloride 101 mmol/L (98-108); Estimated Glomerular Filt Rate > 60; Glucose 153 mg/dL (70-99); Osmolality Calculated 296 mOsm/kg (285-295); Potassium 3.5 mmol/L (3.5-5.1); Sodium 142 mmol/L (136-145); Total Protein 6.6 g/dL (6.4-8.2)
== END 2023-06-12 13:48 | disposition home or self-care (01) ==
LOC: CHSLAB 13:50
PROVIDERS: PCP Family Medicine; Visit Provider Family Medicine
DX: I10 Essential (primary) hypertension (principal); R79.9 Abnormal finding of blood chemistry, unspecified
CPT/HCPCS: 36415; 80053; 81003; 85025; 87040

== ENCOUNTER 2023-08-17 04:29 | Emergency (ER) | payer MEDICARE, MEDICAID, SELFPAY ==
[2023-08-17] VITALS (18 sets, daily range): BP systolic 98–132; BP diastolic 63–79; PULSE 80–126; RESP 14–24; TEMP 36.6–36.8; O2SAT 89–94
--- NOTE | ~2023-08-17 | CT_ITS ---
EXAMINATION: CT chest abdomen pelvis w con DATE: 08/17/2023 06:45 INDICATION: Chest and abdominal pain TECHNIQUE: Transaxial computed tomographic images of the chest, abdomen, and pelvis were obtained aft er the administration of 100 cc of Omnipaque 350 intravenous contrast. The dose-length product (DLP) was 1528.54 mGy-cm. Automated exposure control and iterative reconstruction technique were employed. COMPARISON: 09/21/2022 FINDINGS: CHEST CT: There is mild atelectasis in the lingula and lower lobes. No pleural effusion or pneumothorax. Cardio megaly is noted. There are no pathologically enlarged thoracic lymph nodes. Calcified right hilar lym ph nodes are consistent with old granulomatous disease. There is calcified coronary artery atheroscle rosis. There is severe lower thoracic spondylosis. ABDOMEN/PELVIS CT: The liver, spleen, pancreas, and adrenal glands are normal. A stone is present in the nondistended ga llbladder. Cysts of the kidneys measure up to 12 mm on the left. No pathologically enlarged abdominal or pelvic lymph nodes are identified. No free intraperitoneal gas or evidence of bowel obstruction. A moderate volume of colonic stool is present. There is moderate lumbar spondylosis. IMPRESSION: 1. Mild atelectasis of the lingula and lower lobes. 2. Cholelithiasis without evidence of cholecystitis. Reviewed, dictated and finalized at location F. FLUME WATCHMAN
--- NOTE | 2023-08-17 04:51 | ED.NAVMDI ---
HPI - Nausea/Vomiting/Diarrhea General Chief complaint: Nausea/Vomiting/Diarrhea <Isael Sims MD - Last Filed: 08/19/23 08:38> Stated complaint: nausea/vomiting <Isael Sims MD - Last Filed: 08/19/23 08:38> Time Seen by Provider: 08/17/23 04:47 <Isael Sims MD - Last Filed: 08/19/23 08:38> Source: patient and EMS <Isael Sims MD - Last Filed: 08/19/23 08:38> Mode of arrival: EMS <Isael Sims MD - Last Filed: 08/19/23 08:38> History of Present Illness HPI Narrative: 68 yo F with PMHx of AFib (on Eliquis and Diltiazem), asthma, COPD, depression, HTN, T2DM and sleep apnea, presents to ED due to abdominal pain, nausea, and vomiting for 3 days. Said she had not slept for 3 days. Said she had not had a bowel movement for 3 days. Said she felt queezy in her chest as well. She smokes marijuana frequently. <Isael Sims MD - Last Filed: 08/19/23 08:38> MD elicited complaint: nausea, vomiting, diarrhea and abdominal pain <Isael Sims MD - Last Filed: 08/19/23 08:38> Onset (ago): day(s) <Isael Sims MD - Last Filed: 08/19/23 08:38> Associated nausea: Yes <Isael Sims MD - Last Filed: 08/19/23 08:38> Associated abdominal pain: Yes <Isael Sims MD - Last Filed: 08/19/23 08:38> Location of pain: RLQ and LLQ <Isael Sims MD - Last Filed: 08/19/23 08:38> Pain consistency: constant <Isael Sims MD - Last Filed: 08/19/23 08:38> Severity: moderate <Isael Sims MD - Last Filed: 08/19/23 08:38> Related Data Home medications: Home Medications Medication Instructions Recorded Confirmed duloxetine 30 mg capsule,delayed 30 mg PO DAILY 07/27/19 09/21/22 release hydrochlorothiazide 25 mg tablet 25 mg PO DAILY 07/27/19 09/21/22 lisinopril 40 mg tablet 40 mg PO DAILY 07/27/19 09/21/22 albuterol sulfate 90 mcg/actuation 1 inh inhalation QID PRN Wheezing 01/26/20 09/21/22 aerosol inhaler (ProAir HFA) apixaban 2.5 mg tablet (Eliquis) 5 mg PO BID 01/26/20 09/21/22 cariprazine 1.5 mg capsule 1.5 mg PO DAILY 01/26/20 09/21/22 (Vraylar) celecoxib 200 mg capsule (Celebrex) 200 mg PO DAILY 01/26/20 09/21/22 fluticasone propionate 50 1 inh inhalation BID 01/26/20 09/21/22 mcg/actuation blister powder for inhalation folic acid 1 mg tablet 1 mg PO DAILY 03/10/20 09/21/22 vitamin B complex (B 2 tablet PO BID 03/10/20 09/21/22 Complex-Vitamin B12 tablet) deutetrabenazine 12 mg tablet 12 mg PO BID 10/08/20 09/21/22 (Austedo) diltiazem HCl 240 mg 240 mg PO DAILY 09/21/22 09/21/22 capsule,extended release 24 hr <Isael Sims MD - Last Filed: 08/19/23 08:38> Allergies/Adverse reactions: Allergies Allergy/AdvReac Type Severity Reaction Status Date / Time codeine AdvReac Unknown sick to Verified 08/17/23 04:40 stomach <Isael Smis MD - Last Filed: 08/19/23 08:38> Review of Systems Constitutional: Constitutional: Reports as per HPI and Reports no additional constitutional complaints <Isael Sims MD - Last Filed: 08/19/23 08:38> Eyes: Eyes: Reports as per HPI and Reports no additional eye complaints <Isael Sims MD - Last Filed: 08/19/23 08:38> ENT: Reports system reviewed and no additional complaints, except as documented and Reports as per HPI <Isael Sims MD - Last Filed: 08/19/23 08:38> Cardiovascular: Cardiovascular: Reports as per HPI and Reports no additional cardiovascular complaints <Isael Sims MD - Last Filed: 08/19/23 08:38> Respiratory: Respiratory: Reports as per HPI and Reports no additional respiratory complaints <Isael Sims MD - Last Filed: 08/19/23 08:38> Gastrointestinal: Gastrointestinal: Reports as per HPI and Reports no additional gastrointestinal complaints <Isael Sims MD - Last Filed: 08/19/23 08:38> Genitourinary: Genitourinary: Reports as per HPI <Isael Sims MD - Last Filed: 08/19/23 08:38> Musculoskeletal: Musculoskeletal: Reports no additional musculoskel
--- NOTE | 2023-08-17 04:57 | ECG_ITS ---
Measurements Intervals [place] Rate: 87 P: 87 DC: 165 QRS: 59 QRSD: 99 T: 76 QT: 372 QTc: 448 Interpretive Statements SINUS RHYTHM NONSPECIFIC ST-T WAVE ABNORMALITY- DIFFUSE LEADS BASELINE WANDER- V6 BORDERLINE ECG COMPARED TO ECG 09/21/2022 16:35:09 SIN[address] NOW PRESENT ST-T WAVE ABNORMALITY NOW PRESENT Electronically Signed On 08-17-2023 9:24:42 SLIME PLANT OPERATOR by Gary Taveras D.O.
[2023-08-17] MEDS: ONDANSETRON INJ 4 MG/2 ML VIAL IV PUSH (05:04)
[2023-08-17] MEDS: SODIUM CHLORIDE 0.9% IV 1,000 ML 999 ML IV CONT (05:08)
[2023-08-17 05:42] LABS: Basophils Percent Auto 0.7 % (0.0-1.0); Eosinophils Absolute Auto 0.03 K/mm3 (0.02-0.50); Eosinophils Percent Auto 0.2 % (1.0-6.0); Hematocrit 45.5 % (35.0-42.0); Hemoglobin 15.3 g/dL (11.7-13.8); Immature Granulocyte Absolute 0.11 K/mm3 (0.00-0.00); Immature Granulocyte Percent A 0.7 % (0.0-0.0); Lymphocytes Absolute Auto 1.86 K/mm3 (1.10-4.50); Lymphocytes Percent Auto 12.2 % (18.0-42.0); Mean Corpuscular HGB Conc 33.6 g/dL (32.0-36.0); Mean Corpuscular Hemoglobin 31.9 pg (27.0-31.0); Mean Corpuscular Volume 94.8 fL (78.0-102.0); Mean Platelet Volume 9.2 fl (9.2-11.8); Monocytes Absolute Auto 0.91 K/mm3 (0.10-0.90); Neutrophils Absolute Auto 12.3 K/mm3 (1.7-7.2); Neutrophils Percent Auto 80.2 % (50.0-70.0); Platelet Count Result 293 K/mm3 (150-420); Red Cell Distribution Width 16.2 % (11.6-14.4); White Blood Count 15.3 K/mm3 (4.8-10.8)
[2023-08-17 05:53] LABS: D Dimer 0.19 mg/L (0.19-0.50); Prothrombin Time 10.9 Seconds (9.50-12.10)
[2023-08-17 06:00] LABS: Alanine Aminotransferase 16 U/L (14-59); Albumin Level 3.3 g/dL (3.4-5.0); Alkaline Phosphatase 81 U/L (46-116); Anion Gap 7 mmol/L (8-16); Aspartate Amino Transferase < 10 U/L (15-37); Bilirubin,Total 0.9 mg/dL (0.00-1.00); Blood Urea Nitrogen 19 mg/dL (7-18); Calcium 8.9 mg/dL (8.5-10.1); Carbon Dioxide 33 mmol/L (21-32); Chloride 96 mmol/L (98-108); Estimated CRCL calculation 52 ml/min; Estimated Glomerular Filt Rate 48; Glucose 184 mg/dL (70-99); Lipase 14 U/L (16-77); NT Pro B Type Natriuretic Pept 486 pg/mL (0-125); Osmolality Calculated 289 mOsm/kg (285-295); Potassium 2.9 mmol/L (3.5-5.1); Sodium 136 mmol/L (136-145); Total Protein 6.8 g/dL (6.4-8.2); Troponin I 6.9 ng/L (0.00-60.4)
[2023-08-17 06:33] LABS: Influenza A QL RT-PCR Negative (Negative); Influenza B QL RT-PCR Negative (Negative); RSV RNA, RT-PCR Negative (Negative); SARS-CoV-2 RNA PCR Negative (Negative)
[2023-08-17] MEDS: KCL 20 MEQ/SW 100 ML 100 ML 50 MEQ IVPB (07:11)
[2023-08-17 08:03] LABS: Appearance Urine Clear (Clear); Bilirubin Urine 1+ (Negative); Blood Urine Negative (Negative); Color Urine Yellow (Yellow); Glucose Urine UA Negative (Negative); Ketones Urine Negative (Negative); Leukocyte Esterase Ur Negative LEU/UL (Negative); Nitrate Urine Negative (Negative); Protein Urine 1+ (Negative); Specific Grav Ur <= 1.005 (1.010-1.020); Urobilinogen Urine 0.2 mg/dL (0.2-1.0)
[2023-08-17 08:09] LABS: Amphetamine Screen Urine Negative (Negative); Barbiturate Screen Urine Negative (Negative); Benzodiazepines Screen Urine Negative (Negative); Cannabinoid Screen Urine Positive (Negative); Cocaine Screen Urine Negative (Negative); Methadone Screen Urine Negative (Negative); Opiate Screen Urine Positive (Negative); Phencyclidine Screen Urine Negative (Negative)
[2023-08-17 08:12] LABS: Add Urine Microscopic? YES; Amorphous Sediment Urine Moderate; Squamous Epithelial Cell Urine Moderate /hpf (Few)
== END 2023-08-17 09:07 | disposition home or self-care (01) ==
PROVIDERS: Emergency Medicine; Emergency Provider Emergency Medicine; PCP Family Medicine
DX: K52.9 Noninfective gastroenteritis and colitis, unspecified (principal); K80.20 Calculus of gallbladder without cholecystitis without obstruction; I48.91 Unspecified atrial fibrillation; I10 Essential (primary) hypertension; J43.9 Emphysema, unspecified; E11.9 Type 2 diabetes mellitus without complications; Z79.01 Long term (current) use of anticoagulants; Z87.891 Personal history of nicotine dependence; Z20.822 Contact with and (suspected) exposure to COVID-19; Z79.899 Other long term (current) drug therapy
CPT/HCPCS: 36415; 71260; 74177; 80053; 80307; 81001; 83690; 83880; 84484; 85025; 85380; 85610; 87637; 93005; 96361; 96365; 96366; 96375; 99284; J2405; J3480; J7030; Q9967

== ENCOUNTER 2023-09-10 09:14 | Outpatient (CLI) | payer MEDICARE, MEDICAID, SELFPAY ==
--- NOTE | ~2023-09-10 | US_ITS ---
Limited Abdominal Sonogram: Real-time sonographic imaging of the right upper quadrant was performed. Clinical History: Abdominal pain Findings: The liver appears normal with no evidence of mass lesion or bile duct dilatation. Main por diego vein demonstrates normal direction of flow. The gallbladder is well distended, and contains a sma ll echogenic gallstone. No gallbladder wall thickening. The common bile duct measures 7 mm. The visu alized pancreas, aorta, and IVC are unremarkable. Impression: Small gallstone. Reviewed, dictated and finalized at location M. AN Impression: Small gallstone.
== END 2023-09-10 09:15 | disposition home or self-care (01) ==
LOC: CHSIMG 09:17
PROVIDERS: PCP Family Medicine; Visit Provider Family Medicine
DX: K80.20 Calculus of gallbladder without cholecystitis without obstruction (principal); R10.84 Generalized abdominal pain
CPT/HCPCS: 76705

== ENCOUNTER 2023-10-29 10:10 | Outpatient (CLI) | payer MEDICARE, MEDICAID, SELFPAY ==
--- NOTE | ~2023-10-29 | XR_ITS ---
EXAMINATION: XR hip LT min 2V INDICATION: Left hip pain TECHNIQUE: Two views of the left hip are obtained. COMPARISON: None available FINDINGS: Bone alignment is normal. There is no fracture. There is mild osteoarthritis of the hip. Ph leboliths are noted in the pelvis. IMPRESSION: 1. No acute osseous abnormality. Reviewed, dictated and finalized at location B. N FURNISHINGS INSTALLER
--- NOTE | ~2023-10-29 | XR_ITS ---
EXAMINATION: XR lumbar spine 2-3V DATE: 10/29/2023 10:37 INDICATION: Low back pain TECHNIQUE: Anteroposterior and lateral views of the lumbar spine, and cone-down lateral view of the l umbosacral junction were obtained. COMPARISON: CT, 08/17/2023 FINDINGS: Fluoroscopy levocurvature is noted. Bone alignment is normal. There is no fracture. There i s mild loss of intervertebral disc space height at L5-S1. The vertebral body heights are maintained. There is mild facet joint osteoarthritis at L4-5 and L5-S1. Calcified atherosclerosis is noted. IMPRESSION: 1. Mild lumbar spondylosis without acute findings. Reviewed, dictated and finalized at location B. OGRAPHY TEACHER
== END 2023-10-29 10:11 | disposition home or self-care (01) ==
LOC: CHSIMG 10:13
PROVIDERS: PCP Family Medicine; Visit Provider Family Medicine
DX: M25.552 Pain in left hip (principal); M54.42 Lumbago with sciatica, left side; M43.06 Spondylolysis, lumbar region
CPT/HCPCS: 72100; 73502

== ENCOUNTER 2023-11-26 18:57 | Emergency (ER) | payer MEDICARE, MEDICAID, SELFPAY ==
[2023-11-26] VITALS (16 sets, daily range): BP systolic 92–129; BP diastolic 60–90; PULSE 69–128; RESP 14–25; TEMP 36.4; O2SAT 94–98
--- NOTE | ~2023-11-26 | XR_ITS ---
EXAMINATION: XR chest 1V portable DATE: 11/26/2023 19:41 INDICATION: Shortness of breath. TECHNIQUE: A single frontal view of the chest was obtained. COMPARISON: Chest 2 views 06/06/2023 FINDINGS: The patient is rotated to her left. There is no pneumonia, pleural effusion, or pneumothora x. Cardiomegaly is noted. There are prominent paracardial fat pads. IMPRESSION: 1. Cardiomegaly. Reviewed, dictated and finalized at location E. AL SCIENTIST IMPRESSION: 1. Cardiomegaly.
--- NOTE | 2023-11-26 19:06 | ED.SOB ---
HPI - SOB/Dyspnea General Chief Complaint: Upper Respiratory Infection Stated Complaint: SOB Time Seen by Provider: 11/26/23 19:05 Source: patient and EMS Mode of arrival: ambulatory Limitations: no limitations History of Present Illness HPI Narrative: 68-year-old female, ex-smoker with a history of obesity, depression, diabetes mellitus, arthritis, cyclic vomiting syndrome, DEE, COPD on home oxygen, hypertension, AFib, gallstones is brought in by EMS for -- right upper quadrant abdominal pain. Patient has a history of gallstones and gastric reflux. patient has had multiple prior episodes of right upper quadrant abdominal pain and has had multiple CTs and a HIDA scan without any acute findings. The patient has had an EGD and a colonoscopy. -- worsening shortness of breath-- patient is saturating 98% on room air with a respiratory rate of 14. Minimal cough. -- does not feel well Patient denies fever or chills. No chest pain. MD elicited complaint: shortness of breath, cough and anxiety Pertinent past history: COPD Onset (ago): day(s) Context: anxiety Timing: constant Severity: mild Exacerbating factors: exertion Relieving factors: nothing Known history of: COPD Associated symptoms: cough Treatment prior to arrival: none and other ( Solu-Medrol) Related Data Home oxygen amount: 1 liter ( patient is on p.r.n. oxygen) Home Medications Medication Instructions Recorded Confirmed duloxetine 30 mg capsule,delayed 30 mg PO DAILY 07/27/19 11/26/23 release lisinopril 40 mg tablet 40 mg PO DAILY 07/27/19 11/26/23 albuterol sulfate 90 mcg/actuation 1 inh inhalation QID PRN Wheezing 01/26/20 11/26/23 aerosol inhaler (ProAir HFA) apixaban 2.5 mg tablet (Eliquis) 5 mg PO BID 01/26/20 11/26/23 cariprazine 1.5 mg capsule 1.5 mg PO DAILY 01/26/20 11/26/23 (Vraylar) celecoxib 200 mg capsule (Celebrex) 200 mg PO DAILY 01/26/20 11/26/23 fluticasone propionate 50 1 inh inhalation BID 01/26/20 11/26/23 mcg/actuation blister powder for inhalation folic acid 1 mg tablet 1 mg PO DAILY 03/10/20 11/26/23 vitamin B complex (B 2 tablet PO BID 03/10/20 11/26/23 Complex-Vitamin B12 tablet) deutetrabenazine 12 mg tablet 12 mg PO BID 10/08/20 11/26/23 (Austedo) diltiazem HCl 240 mg 240 mg PO DAILY 09/21/22 11/26/23 capsule,extended release 24 hr Allergies Allergy/AdvReac Type Severity Reaction Status Date / Time codeine AdvReac Mild Nausea Verified 11/26/23 19:14 Review of Systems Constitutional: Constitutional: Reports as per HPI and Reports no additional constitutional complaints Eyes: Eyes: Reports as per HPI and Reports no additional eye complaints ENT: Reports system reviewed and no additional complaints, except as documented and Reports as per HPI Cardiovascular: Cardiovascular: Reports as per HPI and Reports no additional cardiovascular complaints Respiratory: Respiratory: Reports as per HPI, Reports no additional respiratory complaints, Reports cough and Reports dyspnea Gastrointestinal: Gastrointestinal: Reports as per HPI, Reports no additional gastrointestinal complaints and Reports abdominal pain Comments: right upper quadrant abdominal pain. No exacerbating or relieving factors. No radiation of the pain. Genitourinary: Genitourinary: Reports no additional female genitourinary complaints and Reports as per HPI Musculoskeletal: Musculoskeletal: Reports no additional musculoskeletal complaints and Reports as per HPI Integumentary/Breasts: Skin/Breast: Reports system reviewed and no additional complaints, except as docu and Reports as per HPI Neurologic: Reports system reviewed and no additional complaints, except as documented and Reports as per HPI Psychiatric: Psychiatric: Reports no additional psychiatric complaints, Reports as per HPI and Reports anxiety Endocrine: Endocrine: Reports no additional endocrine complaints Hematologic/Lymphatic: Hematologic/Lymphatic: Reports no additional hem
--- NOTE | 2023-11-26 19:22 | ECG_ITS ---
Measurements Intervals [place] Rate: 100 P: 97 AL: 160 QRS: 14 QRSD: 104 T: 59 QT: 359 QTc: 464 Interpretive Statements SINUS TACHYCARDIA VENTRICULAR PREMATURE COMPLEX NONSPECIFIC T-WAVE ABNORMALITY- ANTEROLAT/INF LEADS BASELINE ARTIFACT- I, II, III, AVR, AVL, AVF, V1-V6 ABNORMAL ECG COMPARED TO ECG 08/17/2023 05:27:52 SINUS TACHYCARDIA NOW PRESENT Electronically Signed On 11-26-2023 20:06:53 [employer] PUMP OPERATOR by Gary Taveras D.O.
[2023-11-26 19:38] LABS: Basophils Absolute Auto 0.05 K/mm3 (0.00-0.10); Basophils Percent Auto 0.3 % (0.0-1.0); Eosinophils Absolute Auto 0.01 K/mm3 (0.02-0.50); Eosinophils Percent Auto 0.1 % (1.0-6.0); Hematocrit 43.4 % (35.0-42.0); Hemoglobin 15.4 g/dL (11.7-13.8); Immature Granulocyte Percent A 0.6 % (0.0-0.0); Lymphocytes Absolute Auto 1.69 K/mm3 (1.10-4.50); Lymphocytes Percent Auto 10.3 % (18.0-42.0); Mean Corpuscular HGB Conc 35.5 g/dL (32.0-36.0); Mean Corpuscular Volume 101.4 fL (78.0-102.0); Monocytes Absolute Auto 1.05 K/mm3 (0.10-0.90); Monocytes Percent Auto 6.4 % (2.0-11.0); Neutrophils Absolute Auto 13.5 K/mm3 (1.7-7.2); Neutrophils Percent Auto 82.3 % (50.0-70.0); Platelet Count Result 333 K/mm3 (150-420); Red Blood Count 4.28 M/mm3 (4.20-5.40); Red Cell Distribution Width 15.8 % (11.6-14.4); White Blood Count 16.4 K/mm3 (4.8-10.8)
[2023-11-26 19:50] LABS: Appearance Urine Slightly Cloudy (Clear); Bilirubin Urine 2+ (Negative); Blood Urine Negative (Negative); Glucose Urine UA Negative (Negative); Ketones Urine Trace (Negative); Leukocyte Esterase Ur Negative LEU/UL (Negative); Nitrate Urine Negative (Negative); Protein Urine 3+ (Negative); Specific Grav Ur 1.025 (1.010-1.020); pH Urine 5.5 (5.0-8.0)
[2023-11-26 19:57] LABS: Color Urine Dark Yellow (Yellow)
[2023-11-26 19:58] LABS: Add Urine Microscopic? YES; Bacteria Urine 1+ /hpf; Mucus Urine Few /lpf; RBC Urine 0-2 /hpf (0-2); Squamous Epithelial Cell Urine Moderate /hpf (Few); WBC Urine 0-3 /hpf (0-3)
[2023-11-26 20:06] LABS: Alanine Aminotransferase 11 U/L (14-59); Albumin Level 3.8 g/dL (3.4-5.0); Alkaline Phosphatase 99 U/L (46-116); Anion Gap 11 mmol/L (8-16); Aspartate Amino Transferase 19 U/L (15-37); Bilirubin,Total 1.3 mg/dL (0.00-1.00); Blood Urea Nitrogen 12 mg/dL (7-18); Carbon Dioxide 26 mmol/L (21-32); Chloride 97 mmol/L (98-108); Estimated CRCL calculation 66 ml/min; Estimated Glomerular Filt Rate > 60; Glucose 196 mg/dL (70-99); NT Pro B Type Natriuretic Pept 1978 pg/mL (0-125); Osmolality Calculated 282 mOsm/kg (285-295); Potassium 3.3 mmol/L (3.5-5.1); Sodium 134 mmol/L (136-145); Total Protein 7.4 g/dL (6.4-8.2)
[2023-11-26 20:07] LABS: Magnesium 1.8 mg/dL (1.8-2.4)
[2023-11-26 20:09] LABS: Lactic Acid Reflex 1.3 mmol/L (0.4-2.0)
[2023-11-26 20:14] LABS: SARS-CoV-2 RNA PCR Negative (Negative)
[2023-11-26 20:17] LABS: Influenza A QL RT-PCR Negative (Negative); Influenza B QL RT-PCR Negative (Negative); RSV RNA, RT-PCR Negative (Negative)
[2023-11-26] MEDS: POTASSIUM BICARBONATE 25 MEQ TABEF PO (20:40)
[2023-11-26] MEDS: HYDROcodone/acetaminophen (*CRX) 5-325 MG TABLET 1 TAB PO (20:40)
== END 2023-11-26 20:54 | disposition home or self-care (01) ==
PROVIDERS: Emergency Provider Internal Medicine Critical Care Medicine; PCP Family Medicine
DX: E87.6 Hypokalemia (principal); R10.11 Right upper quadrant pain; E11.65 Type 2 diabetes mellitus with hyperglycemia; I11.0 Hypertensive heart disease with heart failure; I50.9 Heart failure, unspecified; F41.9 Anxiety disorder, unspecified; J43.9 Emphysema, unspecified; I48.91 Unspecified atrial fibrillation; Z87.891 Personal history of nicotine dependence; Z79.899 Other long term (current) drug therapy; Z79.01 Long term (current) use of anticoagulants; Z20.822 Contact with and (suspected) exposure to COVID-19
CPT/HCPCS: 36415; 71045; 80053; 81001; 83605; 83735; 83880; 84484; 85025; 87637; 93005; 99284; A9270

== ENCOUNTER 2023-12-10 10:20 | Outpatient (CLI) | payer MEDICARE, MEDICAID, SELFPAY ==
--- NOTE | ~2023-12-10 | XR_ITS ---
Right Knee Technique: AP, lateral, and sunrise views were obtained. Clinical History: Pain Findings: No fracture or dislocation is seen. There is medial compartment narrowing with moderate tri compartmental osteophyte formation.. Soft tissues are unremarkable. No joint effusion is seen. Impression: Tricompartmental degenerative change, as above. Reviewed, dictated and finalized at location M. Impression: Tricompartmental degenerative change, as above.
[2023-12-10 10:36] LABS: Basophils Absolute Auto 0.08 K/mm3 (0.00-0.10); Basophils Percent Auto 0.9 % (0.0-1.0); Eosinophils Absolute Auto 0.49 K/mm3 (0.02-0.50); Eosinophils Percent Auto 5.7 % (1.0-6.0); Hematocrit 40.7 % (35.0-42.0); Hemoglobin 13.3 g/dL (11.7-13.8); Immature Granulocyte Absolute 0.04 K/mm3 (0.00-0.00); Immature Granulocyte Percent A 0.5 % (0.0-0.0); Lymphocytes Absolute Auto 1.64 K/mm3 (1.10-4.50); Mean Corpuscular HGB Conc 32.7 g/dL (32-36); Mean Corpuscular Volume 110.3 fL (78.0-102.0); Mean Platelet Volume 8.9 fl (9.2-11.8); Monocytes Absolute Auto 0.59 K/mm3 (0.10-0.90); Monocytes Percent Auto 6.8 % (2.0-11.0); Neutrophils Absolute Auto 5.78 K/mm3 (1.70-7.20); Neutrophils Percent Auto 67.1 % (50.0-70.0); Platelet Count Result 294 K/mm3 (150-420); Red Blood Count 3.69 M/mm3 (4.20-5.40); White Blood Count 8.6 K/mm3 (4.8-10.8)
[2023-12-10 11:14] LABS: Anion Gap 8 mmol/L (8-16); Blood Urea Nitrogen 13 mg/dL (7-18); Calcium 8.9 mg/dL (8.5-10.1); Carbon Dioxide 30 mmol/L (21-32); Chloride 104 mmol/L (98-108); Estimated Glomerular Filt Rate > 60; Glucose 199 mg/dL (70-99); Osmolality Calculated 300 mOsm/kg (285-295); Potassium 4.6 mmol/L (3.5-5.1); Sodium 142 mmol/L (136-145)
[2023-12-11 10:46] LABS: Hemoglobin A1C 6.4 % (<5.7)
== END 2023-12-10 10:21 | disposition home or self-care (01) ==
LOC: CHSLAB 10:22
PROVIDERS: PCP Family Medicine; Visit Provider Family Medicine
DX: E11.9 Type 2 diabetes mellitus without complications (principal); M25.561 Pain in right knee
CPT/HCPCS: 36415; 73562; 80048; 83036; 85025

== ENCOUNTER 2024-03-17 09:05 | Outpatient (CLI) | payer MEDICARE, SELFPAY ==
[2024-03-17 09:29] LABS: Hemoglobin A1C 6.1 % (<5.7)
[2024-03-17 09:32] LABS: Basophils Absolute Auto 0.09 K/mm3 (0.00-0.10); Creatinine Urine 83.83 mg/dL (40-278); Eosinophils Absolute Auto 0.53 K/mm3 (0.02-0.50); Eosinophils Percent Auto 5.8 % (1.0-6.0); Hemoglobin 14.3 g/dL (11.7-13.8); Immature Granulocyte Absolute 0.05 K/mm3 (0.00-0.00); Immature Granulocyte Percent A 0.5 % (0.0-0.0); Lymphocytes Absolute Auto 1.85 K/mm3 (1.10-4.50); Lymphocytes Percent Auto 20.3 % (18.0-42.0); MALB Creatinine Ratio 19.9 mg/g (0-30); Mean Corpuscular HGB Conc 34.9 g/dL (32-36); Mean Corpuscular Hemoglobin 38.1 pg (27.0-31.0); Mean Corpuscular Volume 109.3 fL (78.0-102.0); Mean Platelet Volume 9.5 fl (9.2-11.8); Microalbumin Urine Random 16.7 mg/L; Monocytes Absolute Auto 0.59 K/mm3 (0.10-0.90); Monocytes Percent Auto 6.5 % (2.0-11.0); Neutrophils Absolute Auto 6.01 K/mm3 (1.70-7.20); Neutrophils Percent Auto 65.9 % (50.0-70.0); Platelet Count Result 239 K/mm3 (150-420); Red Blood Count 3.75 M/mm3 (4.20-5.40); Red Cell Distribution Width 14.5 % (11.6-14.4); White Blood Count 9.1 K/mm3 (4.8-10.8)
[2024-03-17 10:01] LABS: Alanine Aminotransferase 16 U/L (14-59); Albumin Level 3.7 g/dL (3.4-5.0); Alkaline Phosphatase 90 U/L (46-116); Anion Gap 8 mmol/L (4-12); Aspartate Amino Transferase < 10 U/L (15-37); Bilirubin,Total 0.6 mg/dL (0.00-1.00); Blood Urea Nitrogen 16 mg/dL (7-18); Calcium 8.9 mg/dL (8.5-10.1); Carbon Dioxide 28 mmol/L (21-32); Chloride 103 mmol/L (98-108); Cholesterol 153 mg/dL (0-200); Estimated Glomerular Filt Rate 51; Glucose 150 mg/dL (70-99); HDL Direct 27 mg/dL (40-60); LDL Cholesterol Calculated 70 mg/dL (<130); Osmolality Calculated 292 mOsm/kg (285-295); Potassium 4.7 mmol/L (3.5-5.1); Sodium 139 mmol/L (136-145); Thyroid Stimulating Hormone 3.78 uIU/mL (0.36-3.74); Total Protein 6.9 g/dL (6.4-8.2); Triglycerides 279 mg/dL (0-150)
[2024-03-17 16:00] LABS: Folic Acid 6.4 ng/mL (8.6->20)
[2024-03-17 16:01] LABS: Vitamin B12 < 80 pg/mL (193-986)
== END 2024-03-17 09:06 | disposition home or self-care (01) ==
PROVIDERS: PCP Family Medicine; Visit Provider Family Medicine
DX: E11.9 Type 2 diabetes mellitus without complications (principal)
CPT/HCPCS: 36415; 80053; 80061; 82043; 82607; 82746; 83036; 84439; 84443; 85025

== ENCOUNTER 2024-04-07 13:50 | Emergency (ER) | payer MEDICARE, MEDICAID, SELFPAY ==
[2024-04-07] VITALS (23 sets, daily range): BP systolic 124–218; BP diastolic 67–134; PULSE 95–138; RESP 15–26; TEMP 36.2–36.3; O2SAT 96–99
--- NOTE | ~2024-04-07 | XR_ITS ---
XR chest 1V Ordering provider: Jim Verduzco MD History: 68 years Female with . shortness of breath . Comparison: November 26, 2023 FINDINGS: MEDIASTINUM: The cardiac silhouette is slightly enlarged. Congestive radha. LUNGS: No infiltrates, effusions or pneumothorax. Prominent markings in the lung bases. OTHER: No free air under the diaphragm. Degenerative changes of the spine with dextroscoliosis. IMPRESSION: No acute cardiopulmonary pathology. 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
--- NOTE | ~2024-04-07 | CT_ITS ---
EXAMINATION: CT brain wo con DATE: 04/07/2024 14:49 INDICATION: Altered mental status and confusion. Recent fall with possible head injury. TECHNIQUE: Computed tomography (CT) of the head was performed without intravenous contrast. Sagittal and coronal reconstructions were performed. Automated exposure control and iterative reconstruction t echnique were employed. The dose-length product was 605.33 mGy-cm. COMPARISON: head CT dated 05/04/2007 FINDINGS: No fracture. No acute intracranial hemorrhage, acute infarction or abnormal extra axial fluid collect ion.. There is mild scattered white matter hypoattenuation consistent with chronic small vessel ische rj disease. Ventricles are normal and symmetric. No mass/mass effect. Mild mucosal thickening in th e right maxillary sinus with some dependently layering low-density fluid/mucus which could be seen wi th acute sinusitis. The orbits and mastoid air cells are normal. IMPRESSION: 1. Mild scattered white matter hypoattenuation consistent with chronic small vessel ischemic disease. No fracture or acute intracranial process. 2. Small amount of dependently layering fluid/mucus in the left maxillary sinus. Correlate clinically for acute sinusitis. 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 IMPRESSION: 1. Mild scattered white matter hypoattenuation consistent with chronic small ve ssel ischemic disease. No fracture or acute intracranial process. 2. Small amount of dependently layering fluid/mucus in the left maxillary sinus . Correlate clinically for acute sinusitis.
--- NOTE | 2024-04-07 13:54 | ECG_ITS ---
Test Date: 2024-04-07 13:59:31 Measurements Intervals [place] Rate: 101 P: 73 ID: [id number] QRS: 39 QRSD: 107 T: 78 QT: 379 QTc: 492 Interpretive Statements SINUS TACHYCARDIA FREQUENT SUPRAVENTRICULAR PREMATURE COMPLEXES NONSPECIFIC ST & T-WAVE ABNORMALITY- DIFFUSE LEADS BASELINE ARTIFACT- I, II, III, AVR, AVL, AVF, V4-V6 ABNORMAL ECG No previous ECG available for comparison Electronically Signed On 04-09-2024 11:05:08 CDT by Gary Taveras D.O.
--- NOTE | 2024-04-07 14:06 | ED.SOB ---
HPI - SOB/Dyspnea General Chief Complaint: Shortness of Breath/Dyspnea Stated Complaint: short of breathe Time Seen by Provider: 04/07/24 14:04 Source: patient Mode of arrival: ambulatory Limitations: no limitations History of Present Illness HPI Narrative: 68-year-old female with a history of COPD on home oxygen, obesity, DEE, cyclic vomiting syndrome, depression, hypertension, AFib, GERD, gallstones presents to the ER with a 3 day history of -- worsening shortness of breath. -- cough productive of mucopurulent sputum -- of friends thought that she had altered mental status / confusion. -- Generalized weakness with tremor -- anxiety no fever or chills MD elicited complaint: shortness of breath and cough Pertinent past history: COPD Onset (ago): day(s) ( 3 days) Context: anxiety Timing: constant Severity: mild Exacerbating factors: movement Relieving factors: rest Known history of: COPD Associated symptoms: denies other symptoms, cough and sputum production Treatment prior to arrival: oxygen Related Data Home oxygen amount: 2 liters Home Medications Medication Instructions Recorded Confirmed duloxetine 30 mg capsule,delayed 30 mg PO DAILY 07/27/19 11/26/23 release lisinopril 40 mg tablet 40 mg PO DAILY 07/27/19 11/26/23 albuterol sulfate 90 mcg/actuation 1 inh inhalation QID PRN Wheezing 01/26/20 11/26/23 aerosol inhaler (ProAir HFA) apixaban 2.5 mg tablet (Eliquis) 5 mg PO BID 01/26/20 11/26/23 cariprazine 1.5 mg capsule 1.5 mg PO DAILY 01/26/20 11/26/23 (Vraylar) celecoxib 200 mg capsule (Celebrex) 200 mg PO DAILY 01/26/20 11/26/23 fluticasone propionate 50 1 inh inhalation BID 01/26/20 11/26/23 mcg/actuation blister powder for inhalation folic acid 1 mg tablet 1 mg PO DAILY 03/10/20 11/26/23 vitamin B complex (B 2 tablet PO BID 03/10/20 11/26/23 Complex-Vitamin B12 tablet) deutetrabenazine 12 mg tablet 12 mg PO BID 10/08/20 11/26/23 (Austedo) diltiazem HCl 240 mg 240 mg PO DAILY 09/21/22 11/26/23 capsule,extended release 24 hr Allergies Allergy/AdvReac Type Severity Reaction Status Date / Time codeine AdvReac Mild Nausea Verified 04/07/24 13:54 Review of Systems Review of Systems: All systems reviewed & are unremarkable except as noted in HPI and below Constitutional: Constitutional: Reports as per HPI and Reports no additional constitutional complaints Eyes: Eyes: Reports as per HPI and Reports no additional eye complaints ENT: Reports system reviewed and no additional complaints, except as documented Cardiovascular: Cardiovascular: Reports as per HPI and Reports no additional cardiovascular complaints Respiratory: Respiratory: Reports no additional respiratory complaints, Reports chest congestion, Reports cough and Reports dyspnea Gastrointestinal: Gastrointestinal: Reports as per HPI and Reports no additional gastrointestinal complaints Genitourinary: Genitourinary: Reports no additional female genitourinary complaints and Reports as per HPI Musculoskeletal: Musculoskeletal: Reports no additional musculoskeletal complaints and Reports as per HPI Integumentary/Breasts: Skin/Breast: Reports system reviewed and no additional complaints, except as docu and Reports as per HPI Neurologic: Reports system reviewed and no additional complaints, except as documented and Reports as per HPI Comments: patient's friend's felt that she had confusion. Psychiatric: Psychiatric: Reports no additional psychiatric complaints, Reports as per HPI and Reports anxiety Comments: Patient is hyperventilating Endocrine: Endocrine: Reports no additional endocrine complaints and Reports as per HPI Hematologic/Lymphatic: Hematologic/Lymphatic: Reports no additional hematologic/lymphatic complaints and Reports as per HPI Allergic/Immunologic: Allergic/Immunologic: Reports no additional allergic/immunologic complaints and Reports as per HPI [facility] Past Medical History Medical Histo
[2024-04-07 14:44] LABS: Base Excess ABG 1.9 mmol/L (0-2); HCO3 ABG 23.2 mmol/L (23-29); Oxygen Content ABG 20.9 %vol (16.0-22.0); Oxygen Saturation ABG 97.3 % (95-97); Oxyhemoglobin 95.6 % (94-100); PCO2 ABG 28.2 mmHg (35-45); pH ABG 7.53 (7.35-7.45)
[2024-04-07 14:46] LABS: Device NASAL CANNULA; Liters per Minute 2.5 LPM; Modified Allen's Test Pass; Site Drawn RIGHT RADIAL
[2024-04-07 14:48] LABS: Basophils Absolute Auto 0.08 K/mm3 (0.00-0.10); Basophils Percent Auto 0.4 % (0.0-1.0); Hematocrit 43.8 % (35.0-42.0); Hemoglobin 15.2 g/dL (11.7-13.8); Immature Granulocyte Absolute 0.18 K/mm3 (0.00-0.00); Immature Granulocyte Percent A 0.9 % (0.0-0.0); Influenza A QL RT-PCR Negative (Negative); Influenza B QL RT-PCR Negative (Negative); Lymphocytes Percent Auto 8.1 % (18.0-42.0); Mean Corpuscular HGB Conc 34.7 g/dL (32-36); Mean Corpuscular Hemoglobin 36.5 pg (27.0-31.0); Monocytes Absolute Auto 1.15 K/mm3 (0.10-0.90); Monocytes Percent Auto 5.8 % (2.0-11.0); Neutrophils Absolute Auto 16.85 K/mm3 (1.70-7.20); Neutrophils Percent Auto 84.8 % (50.0-70.0); Platelet Count Result 374 K/mm3 (150-420); RSV RNA, RT-PCR Negative (Negative); Red Blood Count 4.17 M/mm3 (4.20-5.40); Red Cell Distribution Width 13.6 % (11.6-14.4); SARS-CoV-2 RNA PCR Negative (Negative); White Blood Count 19.9 K/mm3 (4.8-10.8)
[2024-04-07 15:04] LABS: Lactic Acid Reflex 1.8 mmol/L (0.4-2.0)
[2024-04-07 15:08] LABS: Alanine Aminotransferase 10 U/L (14-59); Albumin Level 3.8 g/dL (3.4-5.0); Alkaline Phosphatase 104 U/L (46-116); Anion Gap 9 mmol/L (4-12); Aspartate Amino Transferase < 10 U/L (15-37); Bilirubin,Total 0.9 mg/dL (0.00-1.00); Blood Urea Nitrogen 12 mg/dL (7-18); Calcium 9.3 mg/dL (8.5-10.1); Carbon Dioxide 28 mmol/L (21-32); Chloride 99 mmol/L (98-108); Estimated CRCL calculation 57 ml/min; Estimated Glomerular Filt Rate 52; Glucose 246 mg/dL (70-99); NT Pro B Type Natriuretic Pept 3970 pg/mL (0-125); Osmolality Calculated 289 mOsm/kg (285-295); Potassium 3.3 mmol/L (3.5-5.1); Sodium 136 mmol/L (136-145); Total Protein 7.5 g/dL (6.4-8.2)
[2024-04-07 15:22] LABS: Troponin I 18.1 ng/L (0.00-60.4)
[2024-04-07] MEDS: methylPREDNISolone SOD SUCC 125 MG VIAL IM (16:00)
[2024-04-07] MEDS: IPRATROPIUM 0.5 MG/ALBUTEROL SULFATE 2.5 MG AMPUL.NEB 3 ML INHALATION (16:04)
== END 2024-04-07 16:13 | disposition home or self-care (01) ==
PROVIDERS: Emergency Provider Internal Medicine Critical Care Medicine; PCP Family Medicine
DX: J44.1 Chronic obstructive pulmonary disease with (acute) exacerbation (principal); F41.9 Anxiety disorder, unspecified; E11.65 Type 2 diabetes mellitus with hyperglycemia; I48.91 Unspecified atrial fibrillation; I10 Essential (primary) hypertension; Z99.81 Dependence on supplemental oxygen; Z87.891 Personal history of nicotine dependence; Z20.822 Contact with and (suspected) exposure to COVID-19
CPT/HCPCS: 36415; 36600; 70450; 71045; 80053; 82805; 83605; 83880; 84484; 85025; 87637; 93005; 94640; 96372; 99284; J2919

== ENCOUNTER 2024-04-09 08:44 | Outpatient (CLI) | payer MEDICARE, SELFPAY ==
[2024-04-09 09:02] LABS: Hematocrit 44.4 % (35.0-42.0); Hemoglobin 15.7 g/dL (11.7-13.8); Mean Corpuscular HGB Conc 35.4 g/dL (32-36); Mean Corpuscular Volume 104.7 fL (78.0-102.0); Mean Platelet Volume 10.2 fl (9.2-11.8); Platelet Count Result 409 K/mm3 (150-420); Red Blood Count 4.24 M/mm3 (4.20-5.40); Red Cell Distribution Width 13.7 % (11.6-14.4)
[2024-04-09 09:05] LABS: White Blood Count 20.4 K/mm3 (4.8-10.8)
[2024-04-09 09:16] LABS: Alanine Aminotransferase 15 U/L (14-59); Albumin Level 3.8 g/dL (3.4-5.0); Alkaline Phosphatase 88 U/L (46-116); Anion Gap 13 mmol/L (4-12); Aspartate Amino Transferase 15 U/L (15-37); Bilirubin,Total 0.9 mg/dL (0.00-1.00); Blood Urea Nitrogen 29 mg/dL (7-18); Carbon Dioxide 25 mmol/L (21-32); Chloride 96 mmol/L (98-108); Estimated Glomerular Filt Rate 32; Glucose 219 mg/dL (70-99); Osmolality Calculated 290 mOsm/kg (285-295); Potassium 3.4 mmol/L (3.5-5.1); Sodium 134 mmol/L (136-145); Total Protein 6.8 g/dL (6.4-8.2)
[2024-04-09 09:21] LABS: Band Neutrophils Percent 0 % (0-6); Lymphocytes Absolute Manual 3.26 K/mm3 (1.1-4.5); Lymphocytes Percent Manual 16 % (18-44); Monocytes Absolute Manual 2.04 K/mm3 (0.1-0.90); Monocytes Percent Manual 10 % (3-9); Neutrophils Absolute Manual 15.09 K/mm3 (1.7-7.2); Neutrophils Percent Manual 74 % (46-73); Platelet Estimate Slightly Increased (Adequate); Total Cells Counted 100
== END 2024-04-09 08:45 | disposition home or self-care (01) ==
LOC: CHSLAB 08:51
PROVIDERS: PCP Family Medicine; Visit Provider Family Medicine
DX: J18.9 Pneumonia, unspecified organism (principal)
CPT/HCPCS: 36415; 80053; 85025